=== PATIENT | female | born 1985 | race Caucasian/White ===

== ENCOUNTER 2019-12-08 10:28 | Outpatient (CLI) | payer OTHER, SELFPAY ==
[2019-12-08 11:01] LABS: Basophils Percent Auto 0.4 % (0.2-1.2); Eosinophils Absolute Auto 0.1 K/mm3 (0-0.3); Eosinophils Percent Auto 1.6 % (0-4.4); Hematocrit 37.1 % (37.0-47.0); Immature Granulocyte Absolute 0.02 K/mm3 (0.00-0.031); Immature Granulocyte Percent A 0.2 % (0-0.5); Lymphocytes Absolute Auto 2.37 K/mm3 (0.9-3.2); Lymphocytes Percent Auto 29.1 % (18.3-44.2); Mean Corpuscular HGB Conc 32.3 g/dl (32-36); Mean Corpuscular Hemoglobin 30.1 pg (26-34); Mean Platelet Volume 9.7 fl (7.4-10.4); Monocytes Absolute Auto 0.7 K/mm3 (0.1-0.6); Monocytes Percent Auto 8.1 % (2.6-8.5); Neutrophils Absolute Auto 4.9 K/mm3 (1.3-6.7); Neutrophils Percent Auto 60.6 % (45.5-73.1); Platelet Count Result 429 k/mm3 (150-375); Red Blood Count 3.99 M/mm3 (4.2-5.4); Red Cell Distribution Width 11.5 % (11.5-14.5); White Blood Count 8.1 K/mm3 (4.5-10.0)
[2019-12-08 11:09] LABS: Hemoglobin A1C 8.2 % (<5.7)
[2019-12-08 11:12] LABS: Alanine Aminotransferase 18 U/L (4-35); Albumin Level 3.7 g/dL (3.5-5.1); Alkaline Phosphatase 75 U/L (38-126); Anion Gap 3 mmol/L (8-16); Aspartate Amino Transferase 23 U/L (14-36); Bilirubin,Total 0.5 mg/dL (0.2-1.3); Blood Urea Nitrogen 9 mg/dL (7-17); Carbon Dioxide 32 mmol/L (22-30); Chloride 103 mmol/L (98-107); Cholesterol 163 mg/dL (0-200); Estimated Glomerular Filt Rate > 60; Glucose 98 mg/dL (65-105); HDL Direct 36 mg/dL; Potassium 3.8 mmol/L (3.4-5.0); Sodium 138 mmol/L (137-145); Triglycerides 83 mg/dL (<150)
[2019-12-08 11:23] LABS: LDL Cholesterol Direct 104 mg/dL
== END 2019-12-08 10:29 | disposition home or self-care (01) ==
LOC: ANHLAB 10:30
PROVIDERS: PCP Internal Medicine; Visit Provider Clinical Nurse Specialist
DX: E11.9 Type 2 diabetes mellitus without complications (principal); I10 Essential (primary) hypertension
CPT/HCPCS: 36415; 80053; 80061; 83036; 85025

== ENCOUNTER 2020-03-11 14:09 | Emergency (ER) | payer OTHER, SELFPAY ==
--- NOTE | ~2020-03-11 | CT_ITS ---
EXAMINATION: CT abdomen pelvis w con DATE: 03/11/2020 16:29 INDICATION: Lower abdominal pain TECHNIQUE: Computed tomography (CT) of the abdomen and pelvis was performed with 100 mL Omnipaque-350 intravenous contrast. Automated exposure control and iterative reconstruction technique were employe d. The dose-length product was 1392.70 mGy-cm. COMPARISON: None FINDINGS: No significant change in a likely benign 4 mm pleural-based nodule in the right middle lobe. Heart si ze is normal. No pericardial or pleural effusion. Focal hepatic steatosis along the ligamentum teres. Gallbladder is surgically absent. Spleen, pancreas, bilateral adrenal glands and kidneys are normal. Bowels including the appendix are normal. Bladder, retroflexed uterus and bilateral adnexa are unrem arkable. Small amount of likely physiologic free fluid in the cul-de-sac. Mild scarring in the region of the umbilicus likely related to prior surgery. No pathologically enlarged abdominal or pelvic lym phadenopathy. Mild thoracic and lumbar spondylosis. Chronic likely physiologic mild anterior wedging of a few lower thoracic vertebral bodies. IMPRESSION: 1. Small amount of likely physiologic free fluid in the cul-de-sac. No other acute intra-abdominal/pe lvic process. Reviewed, dictated and finalized at location A. DRIER OPERATOR IMPRESSION: 1. Small amount of likely physiologic free fluid in the cul-de-sac. No other ac ugashik intra-abdominal/pelvic process.
[2020-03-11 14:38] VITALS: BP 109/50; PULSE 106; RESP 18; TEMP 36.2
[2020-03-11 14:54] LABS: Basophils Absolute Auto 0.1 K/mm3 (0.0-0.1); Basophils Percent Auto 0.5 % (0.2-1.2); Eosinophils Absolute Auto 0.1 K/mm3 (0-0.3); Eosinophils Percent Auto 0.8 % (0-4.4); Hematocrit 38.8 % (37.0-47.0); Hemoglobin 12.7 g/dL (12.0-15.0); Immature Granulocyte Absolute 0.03 K/mm3 (0.00-0.031); Immature Granulocyte Percent A 0.3 % (0-0.5); Immature Platelet Fraction Pct 9.2 % (0.9-11.2); Lymphocytes Absolute Auto 1.43 K/mm3 (0.9-3.2); Lymphocytes Percent Auto 14.5 % (18.3-44.2); Mean Corpuscular HGB Conc 32.7 g/dl (32-36); Mean Corpuscular Volume 91.7 fl (80-100); Mean Platelet Volume 10.6 fl (7.4-10.4); Monocytes Absolute Auto 0.7 K/mm3 (0.1-0.6); Monocytes Percent Auto 6.8 % (2.6-8.5); Neutrophils Absolute Auto 7.6 K/mm3 (1.3-6.7); Neutrophils Percent Auto 77.1 % (45.5-73.1); Platelet Count Result 301 k/mm3 (150-375); Red Blood Count 4.23 M/mm3 (4.2-5.4); Red Cell Distribution Width 11.9 % (11.5-14.5); White Blood Count 9.9 K/mm3 (4.5-10.0)
--- NOTE | 2020-03-11 14:55 | PC.NURSE ---
Patient reports being seen at multiple hospitals in the last week for abd pain and told she has a cyst on her ovary. patient reports that she wants pain medications.
[2020-03-11 15:15] LABS: Add Urine Microscopic? YES; Appearance Urine Clear (Clear); Bilirubin Urine Negative (Negative); Blood Urine Negative (Negative); Color Urine Yellow (Yellow); Glucose Urine UA Negative (Negative); Ketones Urine Negative (Negative); Leukocyte Esterase Ur 1+ LEU/UL (Negative); Nitrate Urine Negative (Negative); Protein Urine Negative (Negative); RBC Urine 0-2 /hpf (0-2); Specific Grav Ur 1.015 (1.001-1.035); Squamous Epithelial Cell Urine Many /hpf (Few); Urobilinogen Urine Negative mg/dL (<2.0); WBC Urine 0-3 /hpf
[2020-03-11] MEDS: SODIUM CHLORIDE 0.9% IV 1,000 ML 999 ML IV CONT (15:48)
[2020-03-11 15:49] LABS: Alanine Aminotransferase 25 U/L (4-35); Albumin Level 4.1 g/dL (3.5-5.1); Alkaline Phosphatase 84 U/L (38-126); Anion Gap 4 mmol/L (8-16); Aspartate Amino Transferase 28 U/L (14-36); Bilirubin,Total 0.3 mg/dL (0.2-1.3); Blood Urea Nitrogen 6 mg/dL (7-17); Calcium 9.2 mg/dL (8.4-10.2); Carbon Dioxide 31 mmol/L (22-30); Chloride 101 mmol/L (98-107); Estimated CRCL calculation 121 ml/min; Estimated Glomerular Filt Rate > 60; Glucose 175 mg/dL (65-105); Lipase 38 U/L (23-300); Potassium 4.2 mmol/L (3.4-5.0); Sodium 136 mmol/L (137-145)
--- NOTE | 2020-03-11 17:04 | ED.ABDPAIN ---
HPI - Abdominal Pain General Chief Complaint: Abdominal Pain Stated Complaint: abd pain, new dx ovairan cyst Time Seen by Provider: 03/11/20 15:27 Source: patient Mode of arrival: ambulatory Limitations: no limitations History of Present Illness HPI narrative: 34 years old white female presents with generalized abdominal pain for the last few months. Intermittent. Patient denies any aggravating or relieving factors. Patient denies any fever, chills, diarrhea, constipation, vaginal bleeding or discharge or urinary symptoms. Patient was seen at [facility] last week with negative work-up, referred to [facility] for further evaluation, patient was evaluated by virtual [facility] recently. Came to the emergency room because of no improvement of the generalized abdominal pain. History of type 1 diabetes, hypertension, hyperlipidemia, patient on insulin pump. Patient scheduled to see her [facility] March 24 and a psychiatrist April 10 Patient reports a lot of stress and depression in her life over the last few months Related Data Allergies Allergy/AdvReac Type Severity Reaction Status Date / Time Penicillins Allergy Unknown swelling Verified 11/24/19 09:35 Review of Systems Review of Systems: Narrative: CONSTITUTIONAL: Denies fever, chills, or sweats. EYES: Denies visual changes, redness, or discharge. ENT: Denies rhinorrhea, congestion, sore throat, or otalgia. CARDIOVASCULAR: Denies chest pain, palpitations, or edema. RESPIRATORY: Denies cough or dyspnea. GASTROINTESTINAL: Denies abdominal pain, nausea, vomiting, or diarrhea. GENITOURINARY: Denies dysuria or hematuria. SKIN: Denies rash or itching. MUSCULOSKELETAL: Denies back pain, joint pain, or myalgia. NEUROLOGIC: Denies headache, numbness, or weakness. PSYCHIATRIC: Denies anxiety or depression. [facility] Past Medical History Medical History Back pain Cellulitis Cholecystectomy planned 2019 Cholecystitis Depression Hyperlipidemia Hypertension Obesity Thrombocytosis Type 2 diabetes mellitus Surgical History Surgical History H/O tubal ligation BL History of back surgery X5 Family History Family History Father Diabetes mellitus Social History Social History Smoking status: Former smoker Smoking end date: 02/18/05 Alcohol intake: never Gender identity (if verbalized by the patient): Female Exam Narrative: Exam Narrative: General appearance: Well-developed, well-nourished Skin: Normal color Head: Normocephalic, nontraumatic Eyes: Clear conjunctiva ENT: Oropharynx normal, ears normal, nose normal Neck: Supple, nontender Chest and respiratory: Airway patent, no respiratory distress, no accessory muscle use Heart: Regular rate/rhythm Abdomen: Soft, diffuse abdominal tenderness Vascular: Normal peripheral pulses, normal capillary refill. Musculoskeletal: Normal range of motion, nontender back Neurologic: Alert and oriented ?3, FINANCIAL AUDITOR is normal as tested, no gross motor deficit Course Course Emergency Course: Stable Vital Signs Vital signs: Vital Signs Temperature 36.2 C L 03/11/20 14:38 Pulse Rate 106 H 03/11/20 14:38 Respiratory Rate 18 03/11/20 14:38 Blood Pressure 109/50 L 03/11/20 14:38 Temperature 36.2 C L 03/11/20 14:38 Pulse Rate 106 H 03/11/20 14:38 Respiratory Rate 18 03/11/20 14:38 Blood Pressure 109/50 L 03/11/20 14:38 MDM - Abdominal Pain MDM Narrative Medical decision making narrative: Generalized abdominal pain. Labs, CT a
[2020-03-11 17:35] VITALS: BP 115/89; PULSE 90; RESP 18; O2SAT 100
== END 2020-03-11 17:37 | disposition home or self-care (01) ==
PROVIDERS: Emergency Provider Emergency Medicine; PCP Internal Medicine
DX: R10.84 Generalized abdominal pain (principal); F32.89 Other specified depressive episodes; I10 Essential (primary) hypertension; E11.9 Type 2 diabetes mellitus without complications; E78.5 Hyperlipidemia, unspecified; Z79.4 Long term (current) use of insulin; Z96.41 Presence of insulin pump (external) (internal); E66.9 Obesity, unspecified; Z68.41 Body mass index [BMI] 40.0-44.9, adult; Z87.891 Personal history of nicotine dependence
CPT/HCPCS: 36415; 74177; 80053; 81001; 81025; 83690; 85025; 85055; 96360; 99284; J7030; Q9967

== ENCOUNTER 2020-03-21 12:06 | Outpatient (CLI) | payer OTHER, SELFPAY ==
[2020-03-21 13:04] LABS: Cholesterol 176 mg/dL (0-200); HDL Direct 37 mg/dL; Triglycerides 101 mg/dL (<150)
[2020-03-21 13:15] LABS: LDL Cholesterol Direct 122 mg/dL
== END 2020-03-21 12:07 | disposition home or self-care (01) ==
LOC: ANHLAB 12:07
PROVIDERS: PCP Internal Medicine; Visit Provider Nurse Practitioner
DX: E11.9 Type 2 diabetes mellitus without complications (principal); Z79.4 Long term (current) use of insulin
CPT/HCPCS: 36415; 80061

== ENCOUNTER 2020-03-24 15:56 | Outpatient (CLI) | payer OTHER, SELFPAY | END 2020-03-24 15:57 | disposition home or self-care (01) | LOC: ANHLAB 15:58 | PROVIDERS: PCP Internal Medicine; Visit Provider Nurse Practitioner | DX: E11.9 Type 2 diabetes mellitus without complications (principal); Z79.4 Long term (current) use of insulin | CPT/HCPCS: 36415; 83036 ==

== ENCOUNTER → 2020-05-27 00:48 | Outpatient (CLI) | payer OTHER, SELFPAY ==
[2020-05-27 19:49] LABS: SARS-CoV-2 RNA PCR Negative
== END ==
PROVIDERS: PCP Internal Medicine; Visit Provider Internal Medicine Gastroenterology
DX: Z01.812 Encounter for preprocedural laboratory examination (principal); Z20.822 Contact with and (suspected) exposure to COVID-19
CPT/HCPCS: C9803; U0003; U0005

== ENCOUNTER 2020-05-30 01:14 | Day surgery (SDC) | payer OTHER, SELFPAY ==
[2020-05-20 15:10] VITALS: BMI 44.1
[2020-05-30 09:20] VITALS: BP 136/98; PULSE 98; RESP 18; TEMP 36.3; O2SAT 100
[2020-05-30] MEDS: LACTATED RINGERS 1,000 ML 150 ML IV CONT (09:44)
[2020-05-30 09:49] LABS: Glucose Point of Care 96 (65-105)
--- NOTE | 2020-05-30 10:12 | WPDANESEPPF ---
Anes - Initial Pre Proc Eval Procedure: Operation Date: 05/30/20 10:30 Proposed Procedures p Colonoscopy - Ozzie Howe MD Date/Time: 05/30/20 10:12 Surgeon: Ozzie Howe MD Pre Op Diagnosis: abdom. pain, diarrhea Patient Data Age: 35 Gender: F Height: 5 ft 5 in Weight: 115.7 kg Last Vital Signs Temp 97.3 F L 05/30/20 09:20 Pulse 98 05/30/20 09:20 Resp 18 05/30/20 09:20 BP 136/98 H 05/30/20 09:20 Pulse Ox 100 05/30/20 09:20 Allergies Allergy/AdvReac Type Severity Reaction Status Date / Time Penicillins Allergy Unknown swelling Verified 05/30/20 09:16 Home Medications Medication Instructions Recorded Confirmed Type insulin syringe-needle U-100 0.5 #100 each 08/27/19 05/04/20 Rx mL 29 gauge x 1/2 insulin lispro 100 unit/mL 90 unit SUB-Q TID #10 ml MDD 90 11/18/19 05/30/20 Rx subcutaneous solution lisinopril 5 mg tablet 5 mg PO DAILY #90 tablet 12/10/19 05/30/20 Rx simvastatin 20 mg tablet 20 mg PO DAILY #90 tablet 03/24/20 05/30/20 Rx blood sugar diagnostic #100 ea 03/28/20 05/04/20 Rx blood-glucose meter #1 ea 03/28/20 05/04/20 Rx hydroxyzine HCl 10 mg tablet 10 mg PO TID PRN #30 tablet 04/13/20 05/30/20 Rx divalproex 250 mg PO DAILY 05/30/20 05/30/20 History quetiapine 50 mg PO DAILY 05/30/20 05/30/20 History Laboratory Tests 05/30/20 09:30 POC Capillary Glucose 96 mg/dl mg/dl (65-105) Patient hx anesthesia problems: none Family hx anesthesia problems: none PMFSH Past Medical History Medical History (Updated 05/04/20 @ 15:50 by STEPHAN Ashraf) Back pain Cellulitis Cholecystectomy planned 2018 Cholecystitis Depression Hyperlipidemia Hypertension Obesity Obesity Thrombocytosis Type 2 diabetes mellitus Surgical History Surgical History H/O tubal ligation BL History of back surgery X5 Family History Family History Father Diabetes mellitus Social History Social History Smoking status: Never smoker Smoking end date: 02/18/05 Alcohol intake: never Substance use: current Substance use type: marijuana Other substance usage details: USES FOR BACK PAIN Living arrangements: with family Gender identity (if verbalized by the patient): Female Spiritual care concerns: No Anes - Eval Final PreProcedure Day of Procedure 05/30/20 10:12 Patient weight: morbidly obese Heart: regular rate and rhythm Lungs: clear to auscultation Airway: Mallampati scale class III Neurological: alert and oriented Last oral intake: >/= 8 hours ASA classification: IV Emergent: no Anesthetic plan: proceed Anesthesia type and monitoring: general GIVS and standard monitoring Informed Consent: The patient's anesthetic plan and its attendant risks and benefits were discussed with the patient/family/POA. Questions were solicited and answers provided to the satisfaction of the patient/family/POA.
--- NOTE | 2020-05-30 10:37 | PM.HPGS ---
History of Present Illness History of Present Illness Consent: Risks, benefits, and alternatives have been discussed and questions answered. Patient agrees to proceed with procedure. Chief complaint: abdom. pain, diarrhea Narrative: Elise Luevano is a 35 year old female referred for evaluation of abdominal pain with diarrhea which began about 1 year ago. She has episodes of diarrhea with severe pain though not always at the same time. Multiple CT scans have been done that were negative Review of Systems Review of Systems: All systems reviewed & are unremarkable except as noted in HPI and below PMFSH Past Medical History Medical History Back pain Cellulitis Cholecystectomy planned 2019 Cholecystitis Depression Hyperlipidemia Hypertension Obesity Obesity Thrombocytosis Type 2 diabetes mellitus Surgical History Surgical History H/O tubal ligation BL History of back surgery X5 Family History Family History Father Diabetes mellitus Social History Social History Smoking status: Never smoker Smoking end date: 02/18/05 Alcohol intake: never Substance use: current Substance use type: marijuana Other substance usage details: USES FOR BACK PAIN Living arrangements: with family Gender identity (if verbalized by the patient): Female Spiritual care concerns: No Meds Home Medications and Allergies Home Medications Medication Instructions Recorded Confirmed Type insulin syringe-needle U-100 0.5 #100 each 08/27/19 05/04/20 Rx mL 29 gauge x 1/2 insulin lispro 100 unit/mL 90 unit SUB-Q TID #10 ml MDD 90 11/18/19 05/30/20 Rx subcutaneous solution lisinopril 5 mg tablet 5 mg PO DAILY #90 tablet 12/10/19 05/30/20 Rx simvastatin 20 mg tablet 20 mg PO DAILY #90 tablet 03/24/20 05/30/20 Rx blood sugar diagnostic #100 ea 03/28/20 05/04/20 Rx blood-glucose meter #1 ea 03/28/20 05/04/20 Rx hydroxyzine HCl 10 mg tablet 10 mg PO TID PRN #30 tablet 04/13/20 05/30/20 Rx divalproex 250 mg PO DAILY 05/30/20 05/30/20 History quetiapine 50 mg PO DAILY 05/30/20 05/30/20 History Allergies Allergy/AdvReac Type Severity Reaction Status Date / Time Penicillins Allergy Unknown swelling Verified 05/30/20 09:16 Vital Signs Vital Signs - 24 hr 05/30/20 09:20 Temperature 36.3 C L Pulse Rate 98 Respiratory Rate 18 Blood Pressure 136/98 H Pulse Oximetry 100 Exam Const: General: alert Orientation/consciousness: patient oriented x3 Resp: Auscultation: clear to auscultation bilaterally Cardio: Rhythm: regular rhythm GI: GI Palp: Yes Soft to palpation and No Tenderness to palpation present (GI) Neuro: General: patient oriented x3 Assessment and Plan Assessment and plan (1) Chronic diarrhea: Code(s): K52.9 - Noninfective gastroenteritis and colitis, unspecified Status: Acute Assessment and Plan: Colonoscopy with possible biopsy or polypectomy or cautery or injection of substances.
[2020-05-30 11:05] VITALS: BP 105/49; PULSE 88; RESP 18; O2SAT 97
[2020-05-30 11:15] VITALS: BP 115/67; PULSE 81; RESP 18; O2SAT 100
[2020-05-30 11:25] VITALS: BP 119/74; PULSE 76; RESP 18; O2SAT 100
[2020-05-30 11:31] LABS: Glucose Point of Care 115 (65-105)
== END 2020-05-30 11:39 | disposition home or self-care (01) ==
PROVIDERS: PCP Internal Medicine; Visit Provider Internal Medicine Gastroenterology
PROC: 0DJD8ZZ Inspection of Lower Intestinal Tract, Via Natural or Artificial Opening Endoscopic (ICD-10-PCS; CPT 45378; principal; 2020-05-30 10:30)
DX: K59.1 Functional diarrhea (principal); R10.9 Unspecified abdominal pain; F32.9 Major depressive disorder, single episode, unspecified; E78.5 Hyperlipidemia, unspecified; D47.3 Essential (hemorrhagic) thrombocythemia; E11.9 Type 2 diabetes mellitus without complications; Z79.4 Long term (current) use of insulin; F12.90 Cannabis use, unspecified, uncomplicated; I10 Essential (primary) hypertension
CPT/HCPCS: 45380; 82948; 88305; J2704; J7120

== ENCOUNTER 2020-06-22 11:41 | Outpatient (CLI) | payer OTHER, SELFPAY ==
[2020-06-22 12:12] LABS: Creatinine Urine 128.3 mg/dL
[2020-06-22 12:14] LABS: Basophils Percent Auto 0.4 % (0.2-1.2); Eosinophils Absolute Auto 0.1 K/mm3 (0-0.3); Eosinophils Percent Auto 1.4 % (0-4.4); Hematocrit 38.6 % (37.0-47.0); Hemoglobin 12.5 g/dL (12.0-15.0); Immature Granulocyte Absolute 0.02 K/mm3 (0.00-0.031); Immature Granulocyte Percent A 0.3 % (0-0.5); Lymphocytes Absolute Auto 1.87 K/mm3 (0.9-3.2); Lymphocytes Percent Auto 23.7 % (18.3-44.2); Mean Corpuscular HGB Conc 32.4 g/dl (32-36); Mean Corpuscular Hemoglobin 29.5 pg (26-34); Monocytes Absolute Auto 0.7 K/mm3 (0.1-0.6); Monocytes Percent Auto 9.3 % (2.6-8.5); Neutrophils Absolute Auto 5.1 K/mm3 (1.3-6.7); Neutrophils Percent Auto 64.9 % (45.5-73.1); Platelet Count Result 354 k/mm3 (150-375); Red Blood Count 4.24 M/mm3 (4.2-5.4); Red Cell Distribution Width 11.3 % (11.5-14.5); White Blood Count 7.9 K/mm3 (4.5-10.0)
[2020-06-22 12:28] LABS: MALB Creatinine Ratio < 4.7 mg/g (0-30); Microalbumin Urine Random < 6.0 mg/L (0-16.7)
[2020-06-22 12:31] LABS: Alanine Aminotransferase 14 U/L (4-35); Alkaline Phosphatase 70 U/L (38-126); Anion Gap 5 mmol/L (8-16); Aspartate Amino Transferase 23 U/L (14-36); Bilirubin,Total 0.2 mg/dL (0.2-1.3); Blood Urea Nitrogen 11 mg/dL (7-17); Calcium 9.5 mg/dL (8.4-10.2); Carbon Dioxide 30 mmol/L (22-30); Chloride 101 mmol/L (98-107); Estimated Glomerular Filt Rate > 60; Glucose 184 mg/dL (65-105); Potassium 4.2 mmol/L (3.4-5.0); Sodium 136 mmol/L (137-145)
== END 2020-06-22 11:42 | disposition home or self-care (01) ==
LOC: ANHLAB 11:43
PROVIDERS: PCP Internal Medicine; Visit Provider Nurse Practitioner
DX: E11.9 Type 2 diabetes mellitus without complications (principal); Z51.81 Encounter for therapeutic drug level monitoring; Z79.4 Long term (current) use of insulin
CPT/HCPCS: 36415; 80053; 82043; 83036; 85025

== ENCOUNTER 2020-09-30 10:46 | Outpatient (CLI) | payer OTHER, SELFPAY ==
[2020-09-30 11:54] LABS: Basophils Percent Auto 0.4 % (0.2-1.2); Eosinophils Absolute Auto 0.1 K/mm3 (0-0.3); Eosinophils Percent Auto 0.6 % (0-4.4); Hematocrit 35.8 % (37.0-47.0); Hemoglobin 11.8 g/dL (12.0-15.0); Immature Granulocyte Absolute 0.03 K/mm3 (0.00-0.031); Immature Granulocyte Percent A 0.4 % (0-0.5); Lymphocytes Absolute Auto 1.84 K/mm3 (0.9-3.2); Lymphocytes Percent Auto 22.9 % (18.3-44.2); Mean Corpuscular Hemoglobin 27.8 pg (26-34); Mean Corpuscular Volume 84.4 fl (80-100); Mean Platelet Volume 9.7 fl (7.4-10.4); Monocytes Absolute Auto 0.5 K/mm3 (0.1-0.6); Monocytes Percent Auto 6.5 % (2.6-8.5); Neutrophils Absolute Auto 5.6 K/mm3 (1.3-6.7); Neutrophils Percent Auto 69.2 % (45.5-73.1); Platelet Count Result 379 k/mm3 (150-375); Red Blood Count 4.24 M/mm3 (4.2-5.4); Red Cell Distribution Width 11.9 % (11.5-14.5)
[2020-09-30 12:06] LABS: Alanine Aminotransferase 23 U/L (4-35); Albumin Level 4.1 g/dL (3.5-5.1); Alkaline Phosphatase 89 U/L (38-126); Anion Gap 8 mmol/L (8-16); Aspartate Amino Transferase 27 U/L (14-36); Bilirubin,Total 0.4 mg/dL (0.2-1.3); Blood Urea Nitrogen 13 mg/dL (7-17); Calcium 9.3 mg/dL (8.4-10.2); Carbon Dioxide 24 mmol/L (22-30); Chloride 106 mmol/L (98-107); Cholesterol 159 mg/dL (0-200); Estimated Glomerular Filt Rate > 60; Glucose 216 mg/dL (65-110); HDL Direct 47 mg/dL; Potassium 4.4 mmol/L (3.4-5.0); Sodium 138 mmol/L (137-145); Triglycerides 62 mg/dL (<150)
[2020-09-30 12:09] LABS: Alanine Aminotransferase 23 U/L (4-35); Albumin Level 4.1 g/dL (3.5-5.1); Alkaline Phosphatase 88 U/L (38-126); Anion Gap 8 mmol/L (8-16); Aspartate Amino Transferase 30 U/L (14-36); Bilirubin,Total 0.2 mg/dL (0.2-1.3); Blood Urea Nitrogen 12 mg/dL (7-17); Calcium 9.2 mg/dL (8.4-10.2); Carbon Dioxide 25 mmol/L (22-30); Chloride 101 mmol/L (98-107); Estimated Glomerular Filt Rate > 60; Glucose 214 mg/dL (65-110); Potassium 4.4 mmol/L (3.4-5.0); Sodium 134 mmol/L (137-145)
[2020-09-30 12:18] LABS: LDL Cholesterol Direct 76 mg/dL
[2020-09-30 12:24] LABS: Hemoglobin A1C 9.1 % (<5.7)
== END 2020-09-30 10:47 | disposition home or self-care (01) ==
LOC: ANHLAB 10:48
PROVIDERS: PCP Internal Medicine; Visit Provider Nurse Practitioner
DX: E11.9 Type 2 diabetes mellitus without complications (principal); Z79.4 Long term (current) use of insulin
CPT/HCPCS: 36415; 80053; 80061; 83036; 85025

== ENCOUNTER 2020-12-30 12:56 | Outpatient (CLI) | payer OTHER, SELFPAY ==
[2020-12-30 13:40] LABS: Basophils Percent Auto 0.4 % (0.2-1.2); Eosinophils Absolute Auto 0.1 K/mm3 (0-0.3); Hematocrit 36.7 % (37.0-47.0); Hemoglobin 11.9 g/dL (12.0-15.0); Immature Granulocyte Absolute 0.02 K/mm3 (0.00-0.031); Immature Granulocyte Percent A 0.2 % (0-0.5); Lymphocytes Absolute Auto 2.21 K/mm3 (0.9-3.2); Lymphocytes Percent Auto 24.3 % (18.3-44.2); Mean Corpuscular HGB Conc 32.4 g/dl (32-36); Mean Corpuscular Hemoglobin 28.6 pg (26-34); Mean Corpuscular Volume 88.2 fl (80-100); Mean Platelet Volume 9.8 fl (7.4-10.4); Monocytes Absolute Auto 0.5 K/mm3 (0.1-0.6); Monocytes Percent Auto 5.6 % (2.6-8.5); Neutrophils Absolute Auto 6.2 K/mm3 (1.3-6.7); Neutrophils Percent Auto 68.5 % (45.5-73.1); Platelet Count Result 420 k/mm3 (150-375); Red Blood Count 4.16 M/mm3 (4.2-5.4); White Blood Count 9.1 K/mm3 (4.5-10.0)
[2020-12-30 13:42] LABS: Hemoglobin A1C 9.2 % (<5.7)
[2020-12-30 13:51] LABS: Anion Gap 7 mmol/L (8-16); Blood Urea Nitrogen 10 mg/dL (7-17); Calcium 9.1 mg/dL (8.4-10.2); Carbon Dioxide 29 mmol/L (22-30); Chloride 101 mmol/L (98-107); Cholesterol 135 mg/dL (0-200); Estimated Glomerular Filt Rate > 60; Glucose 231 mg/dL (65-110); HDL Direct 44 mg/dL; Potassium 4.2 mmol/L (3.4-5.0); Sodium 137 mmol/L (137-145); Triglycerides 76 mg/dL (<150)
[2020-12-30 14:01] LABS: LDL Cholesterol Direct 68 mg/dL
[2020-12-30 17:26] LABS: Iron 67 ug/dL (37-170); Percent Iron Saturation 22 % (20-50)
== END 2020-12-30 12:57 | disposition home or self-care (01) ==
LOC: ANHLAB 12:58
PROVIDERS: PCP Internal Medicine; Visit Provider Nurse Practitioner
DX: E11.9 Type 2 diabetes mellitus without complications (principal); Z79.4 Long term (current) use of insulin; D64.9 Anemia, unspecified
CPT/HCPCS: 36415; 80048; 80061; 82728; 83036; 83540; 83550; 85025

== ENCOUNTER 2021-04-03 08:29 | Outpatient (CLI) | payer OTHER, SELFPAY ==
[2021-04-03 09:08] LABS: Hemoglobin A1C 8.9 % (<5.7)
== END 2021-04-03 08:30 | disposition home or self-care (01) ==
PROVIDERS: PCP Internal Medicine; Visit Provider Nurse Practitioner
DX: E11.9 Type 2 diabetes mellitus without complications (principal); Z79.4 Long term (current) use of insulin
CPT/HCPCS: 36415; 83036

== ENCOUNTER 2021-05-03 13:04 | Outpatient (CLI) | payer OTHER, SELFPAY ==
--- NOTE | ~2021-05-03 | US_ITS ---
EXAMINATION: US soft tissue UE RT DATE: 05/03/2021 13:29 INDICATION: Localized swelling, mass and lump at the right forearm. TECHNIQUE: Multiple grayscale and Doppler ultrasound images of the two painful palpable abnormalities at the right forearm were obtained. COMPARISON: None FINDINGS: Both the palpable abnormalities correspond to ovoid soft tissue subcutaneous masses which are isointe nse and with similar echogenicity and internal septated architecture as the surrounding fat most cons istent with lipomas. These measure 2.8 x 1.3 x 2.0 cm and 2.0 x 1.8 x 1.2 cm. IMPRESSION: 1. A couple subcutaneous mass at the region of concern with appearance most consistent with and stati stically most likely to represent lipomas. Reviewed, dictated and finalized at location A. IMPRESSION: 1. A couple subcutaneous mass at the region of concern with appearance most con sistent with and statistically most likely to represent lipomas.
== END 2021-05-03 13:05 | disposition home or self-care (01) ==
LOC: ANHIMG 13:05
PROVIDERS: PCP Internal Medicine; Visit Provider Nurse Practitioner
DX: R22.9 Localized swelling, mass and lump, unspecified (principal)
CPT/HCPCS: 76882

== ENCOUNTER 2021-05-16 13:34 | Outpatient (CLI) | payer OTHER, SELFPAY ==
--- NOTE | 2021-05-16 13:30 | ECG_ITS ---
Measurements Intervals [place] Rate: 75 P: 14 TX: 144 QRS: 1 QRSD: 84 T: 11 QT: 393 QTc: 441 Interpretive Statements BASELINE ARTIFACT LEAD 1 AND LEAD TO REDUCES ECG QUALITY SINUS RHYTHM POOR R-WAVE PROGRESSION OTHERWISE GROSSLY NORMAL ECG NO PREVIOUS ECG AVAILABLE FOR COMPARISON Electronically Signed On 05-16-2021 17:38:28 CDT by Cleve Stanley M.D.
[2021-05-16 14:18] LABS: Alanine Aminotransferase 29 U/L (4-35); Albumin Level 3.8 g/dL (3.5-5.1); Alkaline Phosphatase 94 U/L (38-126); Anion Gap 5 mmol/L (8-16); Aspartate Amino Transferase 31 U/L (14-36); Bilirubin,Total 0.3 mg/dL (0.2-1.3); Blood Urea Nitrogen 13 mg/dL (7-17); Calcium 8.7 mg/dL (8.4-10.2); Carbon Dioxide 31 mmol/L (22-30); Chloride 99 mmol/L (98-107); Estimated Glomerular Filt Rate > 60; Glucose 117 mg/dL (65-110); Sodium 135 mmol/L (137-145)
== END 2021-05-16 13:35 | disposition home or self-care (01) ==
LOC: ANHSURGERY 13:38
PROVIDERS: PCP Internal Medicine; Visit Provider Surgery
DX: R22.31 Localized swelling, mass and lump, right upper limb (principal); E11.9 Type 2 diabetes mellitus without complications; E78.5 Hyperlipidemia, unspecified; I10 Essential (primary) hypertension
CPT/HCPCS: 36415; 80053; 93005

== ENCOUNTER 2021-05-22 00:57 | Day surgery (SDC) | payer OTHER, SELFPAY ==
[2021-05-12 11:10] VITALS: BMI 47.0
--- NOTE | 2021-05-12 11:23 | PC.NURSE ---
Addendum entered by Carla More RN 05/12/21 11:29: PT INSTRUCTED TO CONTINUE INSULIN PUMP Original Note: Report to the Outpatient Waiting Room, entrance under the green pavilion located off [facility], at time 12:00 on date 05/22/21. OR Time: 2:00. - You and your visitor will be asked a series of questions to screen for COVID 19 for your protection. - A mask is required within the hospital. One visitor will be allowed to accompany the patient into the hospital. Patients visitor will be instructed to remain with patient at all times or leave the building. We will allow the visitor to come back to the postoperative area when patient is ready. Preoperative COVID Testing Requirements: No COVID Test needed if: (proof is required; if not received patient will have Rapid Test prior to entry) - Patient has received COVID Vaccine at least 14 days prior to procedure date or - Patient has positive COVID test result within last 90 days of surgery date. COVID Test needed if above criteria is not met Patients may have clear liquids (water, carbonated beverages, clear teas, apple juice) until 3 hours prior to surgery (11:00) with a maximum of 20 ounces. - No food from midnight until time of surgery Take the following medications with a SIP of water the morning of surgery: HYDROXYZINE, LAMOTRIGINE, PROPRANOLOL, QUETIAPINE Medications to discontinue per physician: N/A Date to take last dose: N/A Please no make-up, nail mohawk, hairspray, perfume, deodorant, or body powder the day of surgery. No jewelry (including any body piercings) or valuables the day of surgery, leave them at home. Please take a shower or bath the night before, or the morning of, surgery with an antibacterial soap. Wear comfortable, loose fitting clothing. - Jewelry must be removed prior to entering the operating room. Rings and piercings that are not removed may be cut off. - The hospital will not accept responsibility for valuables. - Please leave all valuables, including medications, at home the day of surgery. If you are going home after surgery, a licensed motor bus driver must drive you home. - NO public transportation without another adult. - We recommend that an adult stay with you for 24 hours following discharge. - We also recommend that you do not drive, make important decision, drink alcoholic beverages, or take any drugs that were not prescribed by your health care provider for at least 24 hours after your discharge time. Follow any additional instructions given to you from your surgeon. Telephone instructions given to FRANCIA PAGE and asked if any additional questions and then verbalized understanding. Patient advised to call surgeon office or pre surgery nurse liaison [phone] if any additional questions.
[2021-05-22] VITALS (7 sets, daily range): BP systolic 121–139; BP diastolic 75–92; PULSE 76–86; RESP 14–20; TEMP 36.1–36.3; O2SAT 94–100; BMI 45.5
--- NOTE | 2021-05-22 12:05 | WPDANESEPPF ---
Anes - Initial Pre Proc Eval Procedure: Operation Date: 05/22/21 14:00 Proposed Procedures p Excision Right Forearm Subcutaneous Masses Times Two - Phuc Guillaume MD Date/Time: 05/22/21 12:05 Surgeon: Phuc Guillaume MD Pre Op Diagnosis: Rt Forearm Subcutaneous Mass X 2 Patient Data Age: 36 Gender: F Height: 1.65 m Weight: 128.37 kg Allergies Allergy/AdvReac Type Severity Reaction Status Date / Time Penicillins Allergy Unknown swelling Verified 05/12/21 11:08 Home Medications Medication Instructions Recorded Confirmed Type insulin syringe-needle U-100 0.5 #100 each 08/27/19 05/11/21 Rx mL 29 gauge x 1/2 blood-glucose meter #1 ea 06/30/20 05/11/21 Rx propranolol 20 mg tablet 20 mg PO Q12H 10/25/20 05/12/21 History blood sugar diagnostic #100 ea 01/04/21 05/11/21 Rx lisinopril 5 mg tablet 5 mg PO DAILY #90 tablet 01/18/21 05/12/21 Rx hydroxyzine HCl 50 mg tablet 50 mg PO BID 01/25/21 05/12/21 History insulin lispro 100 unit/mL 90 unit SUB-Q TID #10 ml MDD 90 03/07/21 05/12/21 Rx subcutaneous solution simvastatin 40 mg tablet 40 mg PO DAILY #90 tablet 04/10/21 05/12/21 Rx lamotrigine 100 mg tablet 100 mg PO DAILY 05/11/21 05/12/21 History quetiapine 400 mg tablet 400 mg PO DAILY 05/11/21 05/12/21 History Patient hx anesthesia problems: none Family hx anesthesia problems: none Results Review: All pre-operative results and documents have been reviewed as part of the pre-operative evaluation. [facility] Past Medical History Medical History Back pain Cellulitis Cholecystectomy planned 2018 Cholecystitis Depression Hyperlipidemia Hypertension Obesity Obesity Thrombocytosis Type 2 diabetes mellitus Surgical History Surgical History H/O tubal ligation BL History of back surgery X5 S/P laparoscopic surgery 2020 Family History Family History Father Diabetes mellitus Other Cerebrovascular accident Hypertension Kidney disease Skin cancer Social History Social History Social History: caffeine- occasionally Smoking packs per day: 0.75 Smoking cigarettes per day: 15.0 Years smoked: 4 Smoking pack-years: 3.00 Smoking status: Former smoker Tobacco type: cigarettes Smoking end date: 02/18/06 Alcohol intake: never Substance use: current Substance use type: marijuana Other substance usage details: USES FOR BACK PAIN Living arrangements: with family Additional occupation/education comments: Disabled Gender identity (if verbalized by the patient): Female Spiritual care concerns: No Anes - Eval Final PreProcedure Day of Procedure 05/22/21 12:05 Patient weight: morbidly obese Heart: regular rate and rhythm Lungs: clear to auscultation and normal air movement Airway: Mallampati scale class II Neurological: alert and oriented Last oral intake: >/= 8 hours ASA classification: III Emergent: no Anesthetic plan: proceed Anesthesia type and monitoring: general LMA and standard monitoring Results Review: All pre-operative results and documents have been reviewed as part of the pre-operative evaluation. Informed Consent: The patient's anesthetic plan and its attendant risks and benefits were discussed with the patient/family/POA. Questions were solicited and answers provided to the satisfaction of the patient/family/POA.
[2021-05-22 13:14] LABS: Glucose Point of Care 116 mg/dl (65-105)
[2021-05-22] MEDS: LACTATED RINGERS 1,000 ML 30 ML IV CONT (13:20)
[2021-05-22] MEDS: ACETAMINOPHEN 500 MG TABLET 1000 MG PO (13:21)
--- NOTE | 2021-05-22 14:36 | WPDHPUPDATE1 ---
History and Physical Update Update Date/Time: 05/22/21 14:36 History and Physical has been reviewed, including an updated exam of the patient. There are NO changes in the patient's condition. Risks, benefits, and alternatives have been discussed and questions answered. Patient agrees to proceed with procedure.
[2021-05-22] MEDS: ceFAZolin 3 GM/D5W 100 ML 100 ML IVPB (15:07)
--- NOTE | 2021-05-22 15:52 | P.OP_ITS ---
Procedure Note - Detailed Date of Procedure 05/22/21 Pre-op Diagnosis Rt. Forearm Subcutaneous Mass X 2 Post-op Diagnosis Same (Suspected lipomas) Procedure Performed Excision of 2 subcutaneous masses volar surface of right forearm Surgeon Phuc Guillaume MD Material Handler Floorperson MARIAN [place], OR 1st assist Anesthesia Local (2% Xylocaine with epinephrine) Indications Enlarging subcutaneous mass is causing some discomfort right volar forearm. Findings Subcutaneous masses 1st one is 3 x 1.8 cm and more medial. 2nd one is 2.4 x 1.2 cm and more lateral. Each had a very thin capsule. Description of Procedure The patient was placed in the supine position. Naseem anesthesia established G IV S with an LMA in place. After a surgical time out confirming patient and procedure the patient's entire right arm from the elbow out was prepped and draped in the usual sterile fashion and positioned supinated out to her side on an arm board. Local anesthetic was administered in the skin and subcutaneously directly over a line drawn vertically over each of the 2 palpable subcutaneous masses on the volar surface of the patient's right forearm. A direct incision was made over the 1st subcutaneous lesion which was slightly larger and more medial on the proximal part of the right volar forearm. Incision was made directly over it coming down through a thin layer of subcutaneous fat and I identified a slightly different colored fat and a capsule of what appeared to be a lipoma. I then widened out my incision and I dissected down to the deep subcutaneous tissues and then completely excised the lesion/mass including any capsule that I could see. After removal of this it measured 3 x 1.8 cm. Bleeding was controlled with electrocautery. The wound was closed in two layers. An un-dyed 3-0 Vicryl deep dermal interrupted, buried sutures and then a 4-0 undyed Monocryl running subcuticular closure was completed. The more lateral lesion was smaller and was excised in a similar fashion as d escribed above. It was also closed with 3 interrupted,buried sutures of 3-0 Vicryl followed by a running subcuticular closure of 4-0 on dyed Monocryl on the skin. Surgical glue applied as dressing. The glue was allowed to dry and then each incision site was covered with an appropriete sized piece of Tefla, followed by application of a snug but not tight 3 inch Vivek wrap. Patient tolerated this well. Implants none Estimated Blood Loss 5 Drains No Packing No Pathology Yes (To subcutaneous masses that are suspected lipomas. 1. Labeled volar medial subcutaneous mass 2. Labeled volar lateral subcutaneous mass) Complications No immediate complications Condition Stable Disposition Same day
[2021-05-22 16:03] LABS: Glucose Point of Care 122 mg/dl (65-105)
== END 2021-05-22 17:13 | disposition home or self-care (01) ==
PROVIDERS: PCP Internal Medicine; Visit Provider Surgery
PROC: (CPT 25071; principal; 2021-05-22 14:00)
DX: D17.21 Benign lipomatous neoplasm of skin and subcutaneous tissue of right arm (principal); Z79.4 Long term (current) use of insulin; I10 Essential (primary) hypertension; E78.5 Hyperlipidemia, unspecified; E11.9 Type 2 diabetes mellitus without complications; F32.9 Major depressive disorder, single episode, unspecified; E66.01 Morbid (severe) obesity due to excess calories; Z68.42 Body mass index [BMI] 45.0-49.9, adult; Z87.891 Personal history of nicotine dependence; F12.90 Cannabis use, unspecified, uncomplicated
CPT/HCPCS: 25071 ×2; 82948; 88304; A9270; J0690; J1100; J1165; J1885; J2250; J2405; J2704; J3010; J7120

== ENCOUNTER 2021-10-19 09:13 | Outpatient (CLI) | payer OTHER, SELFPAY ==
[2021-10-19 09:50] LABS: Anion Gap 2 mmol/L (8-16); Blood Urea Nitrogen 10 mg/dL (7-17); Calcium 8.4 mg/dL (8.4-10.2); Carbon Dioxide 29 mmol/L (22-30); Chloride 99 mmol/L (98-107); Estimated Glomerular Filt Rate > 60; Glucose 209 mg/dL (65-110); Potassium 3.8 mmol/L (3.4-5.0); Sodium 130 mmol/L (137-145)
[2021-10-19 10:19] LABS: Hemoglobin A1C 9.8 % (<5.7)
== END 2021-10-19 09:14 | disposition home or self-care (01) ==
LOC: ANHLAB 09:14
PROVIDERS: PCP Internal Medicine; Visit Provider Nurse Practitioner
DX: E11.9 Type 2 diabetes mellitus without complications (principal)
CPT/HCPCS: 36415; 80048; 83036

== ENCOUNTER 2021-10-20 13:54 | Outpatient (CLI) | payer OTHER, SELFPAY ==
[2021-10-20 14:17] LABS: Anion Gap 11 mmol/L (8-16); Blood Urea Nitrogen 8 mg/dL (7-17); Carbon Dioxide 30 mmol/L (22-30); Chloride 98 mmol/L (98-107); Estimated Glomerular Filt Rate > 60; Glucose 157 mg/dL (65-110); Potassium 4.2 mmol/L (3.4-5.0); Sodium 139 mmol/L (137-145)
== END 2021-10-20 13:55 | disposition home or self-care (01) ==
LOC: ANHLAB 13:56
PROVIDERS: PCP Internal Medicine; Visit Provider Nurse Practitioner
DX: E87.1 Hypo-osmolality and hyponatremia (principal)
CPT/HCPCS: 36415; 80048

== ENCOUNTER 2021-11-21 02:16 | Day surgery (SDC) | payer OTHER, SELFPAY ==
[2021-11-15 09:45] VITALS: BMI 45.7
--- NOTE | 2021-11-15 09:51 | PC.NURSE ---
Report to the Outpatient Waiting Room, entrance under the green pavilion located off [facility], at time 1300 on date 11/21/21. OR Time: 1500. Time changes happen often and if your time is changed the preop area will call you the afternoon before. - You and your visitor will be asked to self-screen and do not enter if you have any COVID symptoms. - Only one visitor and NO children visitors are allowed at this time. - The patient visitor is requested to leave or wait in car when not with patient due to restrictions. - A mask is required within the hospital. Patients may have clear liquids (water, carbonated beverages, clear teas, apple juice) until 3 hours prior to surgery with a maximum of 20 ounces. - No food from midnight until time of surgery Take the following medications with a SIP of water the morning of surgery: HYDROXYZINE, LAMOTRIGINE, PROPRANOLOL, INSULIN PUMP - CONTINUE BASAL RATE, ONLY DO 1/2 DOSE OF AM INSULIN Medications to discontinue per physician: N/A Date to take last dose: N/A Please no make-up, nail syriac, hairspray, perfume, deodorant, or body powder the day of surgery. No jewelry (including any body piercings) or valuables the day of surgery, leave them at home. Please take a shower or bath the night before, or the morning of, surgery with an antibacterial soap. Wear comfortable, loose fitting clothing. - Jewelry must be removed prior to entering the operating room. Rings and piercings that are not removed may be cut off. - The hospital will not accept responsibility for valuables. - Please leave all valuables, including medications, at home the day of surgery. If you are going home after surgery, a licensed auto transport driver must drive you home. - NO public transportation without another adult. - We recommend that an adult stay with you for 24 hours following discharge. - We also recommend that you do not drive, make important decision, drink alcoholic beverages, or take any drugs that were not prescribed by your health care provider for at least 24 hours after your discharge time. Follow any additional instructions given to you from your surgeon. If you or anyone in your household have experienced Covid symptoms in the past week, please notify your surgeon or the nurse liaison at the phone number below for possible testing. Telephone instructions given to PT - FRANCIA PAGE and asked if any additional questions and then verbalized understanding. Patient advised to call surgeon office or pre surgery nurse liaison [phone] if any additional questions.
--- NOTE | 2021-11-20 12:37 | WPDANESEPPF ---
Anes - Initial Pre Proc Eval Procedure: Operation Date: 11/21/21 15:00 Proposed Procedures p Excision Subcutaneous Mass Left Medial Thigh - Phuc Guillaume MD Date/Time: 11/20/21 12:37 Surgeon: Phuc Guillaume MD Pre Op Diagnosis: left medial thigh lipoma 2X2.5CM Patient Data Age: 36 Gender: F Height: 1.65 m Weight: 124.74 kg Allergies Allergy/AdvReac Type Severity Reaction Status Date / Time Penicillins AdvReac Unknown swelling Verified 11/21/21 13:25 Home Medications Medication Instructions Recorded Confirmed Type insulin syringe-needle U-100 0.5 #100 ea 08/27/19 11/08/21 Rx mL 29 gauge x 1/2 (BD Insulin Syringe) blood-glucose meter (OneTouch #1 ea 06/30/20 11/08/21 Rx Verio Meter) propranolol 20 mg tablet 20 mg PO Q12H 10/25/20 11/21/21 History blood sugar diagnostic (OneTouch #100 ea 01/04/21 11/08/21 Rx Ultra Test strips) lisinopril 5 mg tablet 5 mg PO DAILY #90 tabs 01/18/21 11/21/21 Rx hydroxyzine HCl 50 mg tablet 50 mg PO BID 01/25/21 11/21/21 History lamotrigine 100 mg tablet 100 mg PO DAILY 05/11/21 11/21/21 History insulin lispro 100 unit/mL See Rx Instructions .Route 10/03/21 11/21/21 Rx subcutaneous solution .COMPLEX #10 mL simvastatin 40 mg tablet See Rx Instructions .Route 10/24/21 11/21/21 Rx .COMPLEX #90 tabs Patient hx anesthesia problems: none Family hx anesthesia problems: none Results Review: All pre-operative results and documents have been reviewed as part of the pre-operative evaluation. [facility] Past Medical History Medical History (Updated 11/20/21 @ 12:39 by Gaudencio Cohen MD) Anxiety Back pain Cellulitis Cholecystectomy planned 2018 Cholecystitis Depression Hyperlipidemia Hypertension Insulin pump in place Morbid obesity with BMI of 45.0-49.9, adult Obesity Obesity Thrombocytosis Type 2 diabetes mellitus Surgical History Surgical History H/O excision of mass exc rt forearm subcutaneous mass x 2 05/22/21 H/O tubal ligation BL History of back surgery X5 S/P laparoscopic surgery 2020 Family History Family History Father Diabetes mellitus Other Cerebrovascular accident Hypertension Kidney disease Skin cancer Social History Social History Social History: caffeine- occasionally Smoking packs per day: 0.5 Smoking cigarettes per day: 10.0 Years smoked: 6 Smoking pack-years: 3.00 Smoking status: Former smoker Tobacco type: cigarettes Smoking end date: 02/18/06 Alcohol intake: never Substance use: current Substance use type: marijuana Other substance usage details: USES FOR BACK PAIN Living arrangements: with family Additional occupation/education comments: Disabled Gender identity (if verbalized by the patient): Female Spiritual care concerns: No Anes - Eval Final PreProcedure Day of Procedure 11/20/21 12:37 Patient weight: morbidly obese Heart: regular rate and rhythm Lungs: clear to auscultation and normal air movement Airway: Mallampati scale class II Neurological: alert and oriented Last oral intake: >/= 8 hours ASA classification: III Emergent: no Anesthetic plan: proceed Anesthesia type and monitoring: general LMA and standard monitoring Results Review: All pre-operative results and documents have been reviewed as part of the pre-operative evaluation. Informed Consent: The patient's anesthetic plan and its attendant risks and benefits were discussed with the patient/family/POA. Questions were solicited and answers provided to the satisfaction of the patient/family/POA.
[2021-11-21 13:11] VITALS: BP 121/66; PULSE 78; RESP 20; TEMP 36.2; O2SAT 100
--- NOTE | 2021-11-21 13:47 | WPDHPUPDATE1 ---
History and Physical Update Update Date/Time: 11/21/21 13:47 History and Physical has been reviewed, including an updated exam of the patient. There are NO changes in the patient's condition. Risks, benefits, and alternatives have been discussed and questions answered. Patient agrees to proceed with procedure.
[2021-11-21] MEDS: LACTATED RINGERS 1,000 ML 30 ML IV CONT (13:55)
[2021-11-21 14:01] LABS: Glucose Point of Care 130 mg/dl (65-105)
[2021-11-21] MEDS: BUPIVACAINE/EPINEPHRINE 0.25% 50 ML VIAL 7 ML INFILTRATE (14:56)
--- NOTE | 2021-11-21 15:15 | W.PM.PROC2 ---
Procedure Note - Detailed Date of Procedure 11/21/21 Pre-op Diagnosis left medial thigh lipoma 2X2.5CM Post-op Diagnosis Same Procedure Performed Excision of skin lesion Surgeon Phuc Guillaume MD Software Design Manager Audrey Nation APN Anesthesia Local Indications Enlarging somewhat painful subcutaneous mass left medial thigh. Findings Small nearly round encapsulated area of fat. After removal measured 2.1 x 1.3 x 1. 5 cm. Description of Procedure After appropriate sedation with G IV S by Naseem anesthesia we positioned the patient for the operation. The patient was placed in the supine position with her left leg been slightly frog-legged and rotated out. This was padded carefully to expose the area of the skin of the lower left medial thigh slightly above the knee. Then after a surgical time out confirming patient and procedure, the patient was prepped and draped in the usual sterile fashion. Local anesthetic was administered subcutaneously and in the skin directly overlying the palpable subcutaneous mass. There are no skin lesions identified directly over the area so a direct longitudinal lid incision was planned. The lesion measured 2 x 2.5 cm when compressing the skin around it and measured before excision. A direct incision was made over the palpable lesion while keeping anterior to posterior pressure on the skin on either side of the incision to compress what appeared to be a lipoma underneath toward the incision. As we initially made the incision we could see some of the lipoma pop up into the incision few more strokes with the 15 blade on the medial or posterior side of the incision freed it from the surrounding subcu tissue and the encapsulated area of fat seemed to be able to be squeezed up into the wound. We then down to the deep subcutaneous tissues and then completely excised the lesion with the use of Bovie cautery. Bleeding was controlled on the wound edges with electrocautery. The wound was closed in two layers. An un-dyed 2-0 Vicryl deep dermal and then a 3-0 undyed Monocryl running subcuticular closure was completed. Surgical glue applied as dressing. After the surgical glue dried we applied a 2 x 2 and a medium Tegaderm over it. Then to protect the incision we also applied a 6 in Vivek wrap starting slightly below the knee and wrapping it around the knee and lower left thigh covering the site of the incision to protect it. Patient tolerated this well. Implants none Estimated Blood Loss 3 Drains No Packing No Pathology Yes (Encapsulated fat, suspect lipoma) Complications No immediate complications Condition Stable Disposition Same day [facility] Billing Surgery - Charge Forward: Surgery Billing (Excision of lipoma left lower thigh.)
[2021-11-21 15:20] VITALS: BP 124/76; PULSE 80; RESP 14; O2SAT 96
[2021-11-21 15:44] LABS: Glucose Point of Care 123 mg/dl (65-105)
[2021-11-21 15:50] VITALS: BP 122/64; PULSE 75; RESP 16
[2021-11-21 16:20] VITALS: BP 127/74; PULSE 70; RESP 16
== END 2021-11-21 16:45 | disposition home or self-care (01) ==
PROVIDERS: PCP Internal Medicine; Visit Provider Surgery
PROC: (CPT 27337; principal; 2021-11-21 15:00)
DX: D17.24 Benign lipomatous neoplasm of skin and subcutaneous tissue of left leg (principal); I10 Essential (primary) hypertension; E78.5 Hyperlipidemia, unspecified; E11.9 Type 2 diabetes mellitus without complications; F41.9 Anxiety disorder, unspecified; F32.A Depression, unspecified; Z96.41 Presence of insulin pump (external) (internal); Z79.4 Long term (current) use of insulin; E66.01 Morbid (severe) obesity due to excess calories; Z68.42 Body mass index [BMI] 45.0-49.9, adult; Z87.891 Personal history of nicotine dependence; F12.90 Cannabis use, unspecified, uncomplicated
CPT/HCPCS: 27337; 82948; 88304; J1885; J2250; J2704; J3010; J7120

== ENCOUNTER 2022-01-31 13:39 | Outpatient (CLI) | payer OTHER, SELFPAY ==
[2022-01-31 14:09] LABS: Basophils Percent Auto 0.4 % (0.2-1.2); Eosinophils Absolute Auto 0.1 K/mm3 (0-0.3); Eosinophils Percent Auto 1.2 % (0-4.4); Hematocrit 37.5 % (37.0-47.0); Hemoglobin 11.9 g/dL (12.0-15.0); Immature Granulocyte Absolute 0.03 K/mm3 (0.00-0.031); Immature Granulocyte Percent A 0.3 % (0-0.5); Lymphocytes Absolute Auto 2.24 K/mm3 (0.9-3.2); Lymphocytes Percent Auto 24.9 % (18.3-44.2); Mean Corpuscular HGB Conc 31.7 g/dl (32-36); Mean Corpuscular Hemoglobin 28.1 pg (26-34); Mean Corpuscular Volume 88.7 fl (80-100); Mean Platelet Volume 9.5 fl (7.4-10.4); Monocytes Absolute Auto 0.6 K/mm3 (0.1-0.6); Monocytes Percent Auto 7.1 % (2.6-8.5); Neutrophils Absolute Auto 5.9 K/mm3 (1.3-6.7); Neutrophils Percent Auto 66.1 % (45.5-73.1); Platelet Count Result 450 k/mm3 (150-375); Red Blood Count 4.23 M/mm3 (4.2-5.4); Red Cell Distribution Width 14.1 % (11.5-14.5)
[2022-01-31 14:32] LABS: Alanine Aminotransferase 17 U/L (6-35); Albumin Level 3.7 g/dL (3.5-5.1); Alkaline Phosphatase 92 U/L (38-126); Anion Gap 2 mmol/L (8-16); Aspartate Amino Transferase 19 U/L (14-36); Bilirubin,Total 0.3 mg/dL (0.2-1.3); Blood Urea Nitrogen 8 mg/dL (7-17); Calcium 8.6 mg/dL (8.4-10.2); Carbon Dioxide 31 mmol/L (22-30); Chloride 99 mmol/L (98-107); Estimated Glomerular Filt Rate > 60; Glucose 242 mg/dL (65-110); Potassium 4.2 mmol/L (3.4-5.0); Sodium 132 mmol/L (137-145)
[2022-01-31 14:38] LABS: Creatinine Urine 123.6 mg/dL
[2022-01-31 14:39] LABS: Hemoglobin A1C 10.9 % (<5.7)
[2022-01-31 15:04] LABS: MALB Creatinine Ratio < 4.9 mg/g (0-30); Microalbumin Urine Random < 6.0 mg/L (0-16.7)
== END 2022-01-31 13:40 | disposition home or self-care (01) ==
LOC: ANHLAB 13:40
PROVIDERS: PCP Internal Medicine; Visit Provider Nurse Practitioner
DX: E11.9 Type 2 diabetes mellitus without complications (principal); Z79.4 Long term (current) use of insulin
CPT/HCPCS: 36415; 80053; 82043; 83036; 85025

== ENCOUNTER 2022-02-01 15:10 | Outpatient (CLI) | payer OTHER, SELFPAY ==
[2022-02-01 20:48] LABS: Immature Reticulocyte Fraction 10.6 % (3.0-15.9); Reticulocyte Hemoglobin Conten 32.2 pg (28.2-35.7); Reticulocyte Percent 1.83 % (0.7-4.3); Reticulocytes Absolute 0.08 B/L (32.2-175.7)
[2022-02-01 20:55] LABS: Iron 50 ug/dL (37-170)
[2022-02-01 21:10] LABS: Percent Iron Saturation 16 % (20-50)
[2022-02-01 21:28] LABS: Anion Gap 4 mmol/L (8-16); Blood Urea Nitrogen 9 mg/dL (7-17); Calcium 8.8 mg/dL (8.4-10.2); Carbon Dioxide 29 mmol/L (22-30); Chloride 102 mmol/L (98-107); Estimated Glomerular Filt Rate > 60; Glucose 216 mg/dL (65-110); Potassium 4.2 mmol/L (3.4-5.0); Sodium 135 mmol/L (137-145)
== END 2022-02-01 15:11 | disposition home or self-care (01) ==
LOC: ANHGOSHLAB 15:11
PROVIDERS: PCP Internal Medicine; Visit Provider Nurse Practitioner
DX: D64.9 Anemia, unspecified (principal)
CPT/HCPCS: 36415; 80048; 82607; 82728; 82746; 83540; 83550; 85046

== ENCOUNTER 2022-03-14 12:18 | Outpatient (CLI) | payer OTHER, SELFPAY ==
[2022-03-14 12:53] LABS: Alanine Aminotransferase 25 U/L (6-35); Albumin Level 3.8 g/dL (3.5-5.1); Alkaline Phosphatase 92 U/L (38-126); Anion Gap 7 mmol/L (8-16); Aspartate Amino Transferase 25 U/L (14-36); Bilirubin,Total 0.4 mg/dL (0.2-1.3); Blood Urea Nitrogen 9 mg/dL (7-17); Calcium 8.4 mg/dL (8.4-10.2); Carbon Dioxide 26 mmol/L (22-30); Chloride 104 mmol/L (98-107); Cholesterol 138 mg/dL (0-200); Estimated Glomerular Filt Rate > 60; Glucose 201 mg/dL (65-110); HDL Direct 38 mg/dL; Sodium 137 mmol/L (137-145); Triglycerides 104 mg/dL (<150)
[2022-03-14 13:04] LABS: LDL Cholesterol Direct 70 mg/dL
[2022-03-14 13:23] LABS: Thyroid Stimulating Hormone 0.988 uIU/mL (0.465-4.680)
[2022-03-14 13:26] LABS: Creatinine Urine 207.4 mg/dL
[2022-03-14 13:31] LABS: MALB Creatinine Ratio 4.9 mg/g (0-30); Microalbumin Urine Random 10.1 mg/L (0-16.7)
[2022-03-14 13:33] LABS: Vitamin D 25 Hydroxy < 12.8 ng/mL
[2022-03-18 06:14] LABS: C-Peptide 0.83 ng/mL (0.80-3.85)
[2022-03-20 18:03] LABS: Zinc Transporter 8 Antibody <10 U/mL (<15)
[2022-03-27 22:22] LABS: Islet Cell Antibody Screen NEGATIVE (NEGATIVE)
== END 2022-03-14 12:19 | disposition home or self-care (01) ==
LOC: ANHLAB 12:19
PROVIDERS: PCP Internal Medicine; Visit Provider Internal Medicine
DX: E11.9 Type 2 diabetes mellitus without complications (principal); E66.01 Morbid (severe) obesity due to excess calories; Z68.42 Body mass index [BMI] 45.0-49.9, adult
CPT/HCPCS: 36415; 80053; 80061; 82043; 82306; 84443; 84681; 86341

== ENCOUNTER 2022-05-23 13:45 | Outpatient (CLI) | payer OTHER, SELFPAY ==
[2022-05-23 18:43] LABS: Basophils Percent Auto 0.4 % (0.2-1.2); Eosinophils Absolute Auto 0.1 K/mm3 (0-0.3); Eosinophils Percent Auto 0.9 % (0-4.4); Hematocrit 40.3 % (37.0-47.0); Immature Granulocyte Absolute 0.02 K/mm3 (0.00-0.031); Immature Granulocyte Percent A 0.2 % (0-0.5); Immature Reticulocyte Fraction 9.8 % (3.0-15.9); Lymphocytes Absolute Auto 2.14 K/mm3 (0.9-3.2); Lymphocytes Percent Auto 21.1 % (18.3-44.2); Mean Corpuscular HGB Conc 32.3 g/dl (32-36); Mean Corpuscular Hemoglobin 30.2 pg (26-34); Mean Corpuscular Volume 93.5 fl (80-100); Monocytes Absolute Auto 0.7 K/mm3 (0.1-0.6); Monocytes Percent Auto 7.2 % (2.6-8.5); Neutrophils Absolute Auto 7.1 K/mm3 (1.3-6.7); Neutrophils Percent Auto 70.2 % (45.5-73.1); Platelet Count Result 490 k/mm3 (150-375); Red Blood Count 4.31 M/mm3 (4.2-5.4); Red Cell Distribution Width 12.8 % (11.5-14.5); Reticulocyte Hemoglobin Conten 32.1 pg (28.2-35.7); Reticulocyte Percent 1.45 % (0.7-4.3); Reticulocytes Absolute 0.06 B/L (32.2-175.7); White Blood Count 10.1 K/mm3 (4.5-10.0)
[2022-05-23 18:56] LABS: Iron 92 ug/dL (37-170)
[2022-05-23 19:06] LABS: Percent Iron Saturation 27 % (20-50)
== END 2022-05-23 13:46 | disposition home or self-care (01) ==
LOC: ANHGOSHLAB 13:46
PROVIDERS: PCP Internal Medicine; Visit Provider Nurse Practitioner
DX: D64.9 Anemia, unspecified (principal)
CPT/HCPCS: 36415; 82728; 83540; 83550; 85025; 85046

== ENCOUNTER 2022-05-30 15:37 | Outpatient (CLI) | payer OTHER, SELFPAY ==
[2022-05-30 15:50] LABS: Basophils Percent Auto 0.3 % (0.2-1.2); Eosinophils Absolute Auto 0.1 K/mm3 (0-0.3); Eosinophils Percent Auto 1.2 % (0-4.4); Hematocrit 36.2 % (37.0-47.0); Hemoglobin 11.6 g/dL (12.0-15.0); Immature Granulocyte Absolute 0.01 K/mm3 (0.00-0.031); Immature Granulocyte Percent A 0.1 % (0-0.5); Lymphocytes Absolute Auto 2.32 K/mm3 (0.9-3.2); Lymphocytes Percent Auto 30.2 % (18.3-44.2); Mean Corpuscular Hemoglobin 29.7 pg (26-34); Mean Corpuscular Volume 92.8 fl (80-100); Mean Platelet Volume 9.7 fl (7.4-10.4); Monocytes Absolute Auto 0.6 K/mm3 (0.1-0.6); Monocytes Percent Auto 7.3 % (2.6-8.5); Neutrophils Absolute Auto 4.7 K/mm3 (1.3-6.7); Neutrophils Percent Auto 60.9 % (45.5-73.1); Platelet Count Result 454 k/mm3 (150-375); Red Cell Distribution Width 12.3 % (11.5-14.5); White Blood Count 7.7 K/mm3 (4.5-10.0)
[2022-05-30 16:27] LABS: Iron 56 ug/dL (37-170)
[2022-05-30 16:29] LABS: Anion Gap 4 mmol/L (8-16); Blood Urea Nitrogen 9 mg/dL (7-17); Calcium 8.6 mg/dL (8.4-10.2); Carbon Dioxide 30 mmol/L (22-30); Chloride 103 mmol/L (98-107); Estimated Glomerular Filt Rate > 60; Glucose 168 mg/dL (65-110); Potassium 4.1 mmol/L (3.4-5.0); Sodium 137 mmol/L (137-145)
[2022-05-30 16:39] LABS: Percent Iron Saturation 18 % (20-50)
[2022-06-02 14:45] LABS: Methylmalonic Acid 82 nmol/L (87-318)
== END 2022-05-30 15:38 | disposition home or self-care (01) ==
LOC: ANHLAB 15:39
PROVIDERS: PCP Internal Medicine; Visit Provider Internal Medicine Hematology & Oncology
DX: D64.9 Anemia, unspecified (principal)
CPT/HCPCS: 36415; 80048; 82607; 82728; 82746; 83540; 83550; 83921; 85025

== ENCOUNTER 2022-08-24 20:28 | Emergency (ER) | payer OTHER, SELFPAY ==
--- NOTE | ~2022-08-24 | XR_ITS ---
EXAM: XR foot LT 2V DATE: 08/24/2022 20:54 HISTORY: L great toe ulcer . COMPARISON: None available. FINDINGS: Normal mineralization. No fracture or dislocation. No lytic or blastic lesion. Joint space s are maintained. No erosion or periosteal change. Soft tissue defect over the proximal and inferior aspect of the great toe. Soft tissue swelling of the great toe and forefoot. No radiopaque foreign mulu dy. No subcutaneous gas. IMPRESSION: No radiographic evidence of osteomyelitis. Great toe and forefoot soft tissue swelling, m ay reflect cellulitis in the appropriate clinical context. Reviewed, dictated and finalized at location K. IMPRESSION: No radiographic evidence of osteomyelitis. Great toe and forefoot s oft tissue swelling, may reflect cellulitis in the appropriate clinical context .
[2022-08-24 20:28] VITALS: BP 152/80; PULSE 95; RESP 16; TEMP 36.3; O2SAT 99
--- NOTE | 2022-08-24 20:41 | ED.GENADULT ---
HPI - General Adult General Chief complaint: Extremity Problem,Nontraumatic Stated complaint: hole in left big toe Time Seen by Provider: 08/24/22 20:34 Source: patient Mode of arrival: ambulatory Limitations: no limitations History of Present Illness HPI narrative: This is a 37-year-old female with PMH of insulin-dependent diabetes who presents to the ED with chief complaint of left great toe lesion onset x1 week. Patient states that she had a callus to the toe that she picked off. She reports that she had a small black thing in the toe that she pulled out. She states ever since then the toe has been somewhat painful and there has been a hole in it. States it is somewhat painful when she walks on it 10 times. Reports a throbbing pain. She states that sometimes there is drainage that she notices on her sock. Denies any further complaints. Denies fevers, chills, nausea, vomiting. Additionally patient notes that her last A1c was around 7. She states they have been getting better and better since she has been on her insulin pump. Related Data Home Medications Medication Instructions Recorded Confirmed propranolol 20 mg tablet 20 mg PO Q12H 10/25/20 05/23/22 lamotrigine 100 mg tablet 100 mg PO DAILY 05/11/21 05/23/22 fluoxetine 40 mg capsule 40 mg PO DAILY 05/23/22 05/23/22 olanzapine 15 mg tablet 15 mg PO QHS 05/23/22 05/23/22 Allergies Allergy/AdvReac Type Severity Reaction Status Date / Time Penicillins AdvReac Unknown swelling Verified 08/24/22 20:28 [facility] Past Medical History Medical History Abdominal mass Adenoiditis Anemia Anxiety Back pain Body mass index (BMI) greater than 40 (12/18/17) Cellulitis of left thigh Cholecystitis Chronic diarrhea Depression Essential hypertension History of deviated nasal septum Hyperlipidemia Hypertension Hypertrophy of both inferior nasal turbinates Hyponatremia Insulin pump in place Lipoma Medial left thigh slightly above knee. director long term care (current) use of insulin Morbid obesity with BMI of 45.0-49.9, adult Other chronic pain Schizophrenia Subcutaneous mass of right upper extremity Thrombocytosis Type 2 diabetes mellitus Surgical History Surgical History H/O excision of mass exc rt forearm subcutaneous mass x 2 05/22/21 H/O excision of mass Excision of subQ mass left thigh mass on 11/21/21. H/O tubal ligation BL History of back surgery X5 S/P laparoscopic surgery 2020 Family History Family History Father Diabetes mellitus Other Cerebrovascular accident Hypertension Kidney disease Skin cancer Social History Social History Social History: caffeine- occasionally Smoking packs per day: 0.5 Smoking cigarettes per day: 10.0 Years smoked: 6 Smoking pack-years: 3.00 Smoking status: Former smoker Tobacco type: cigarettes Smoking end date: 02/18/06 Alcohol intake: never Substance use: current Substance use type: marijuana Other substance usage details: USES FOR BACK PAIN Last use: [id number] Lack of Transportation: No Lack of Food: Never True Current Housing: I Do Not Have Housing Concerned About Future Housing: No Difficulty Paying Gas/Electric Bills: No Difficulty Paying for Meds: No Currently Unemployed: No Education: Don't Know Difficulty w/ Childcare or Family Care: No Living arrangements: with family Occupation/Education: other Additional occupation/education comments: Disabled Gender identity (if verbalized by the patient): Female Spiritual care concerns: No Exam Narrative: GENERAL: Well-appearing, well-nourished, and in no acute distress. HEAD: Normocephalic, atraumatic. EYES: PERRLA and EOMI. ENT: Nares clear, no rhinorrhea or ep
[2022-08-24 21:27] LABS: Basophils Percent Auto 0.2 % (0.2-1.2); Eosinophils Absolute Auto 0.1 K/mm3 (0-0.3); Hematocrit 35.5 % (37.0-47.0); Hemoglobin 11.6 g/dL (12.0-15.0); Immature Granulocyte Absolute 0.02 K/mm3 (0.00-0.031); Immature Granulocyte Percent A 0.2 % (0-0.5); Lymphocytes Absolute Auto 2.31 K/mm3 (0.9-3.2); Lymphocytes Percent Auto 26.1 % (18.3-44.2); Mean Corpuscular HGB Conc 32.7 g/dl (32-36); Mean Corpuscular Hemoglobin 30.2 pg (26-34); Mean Corpuscular Volume 92.4 fl (80-100); Mean Platelet Volume 9.6 fl (7.4-10.4); Monocytes Absolute Auto 0.6 K/mm3 (0.1-0.6); Monocytes Percent Auto 7.1 % (2.6-8.5); Neutrophils Absolute Auto 5.8 K/mm3 (1.3-6.7); Neutrophils Percent Auto 65.4 % (45.5-73.1); Platelet Count Result 501 k/mm3 (150-375); Red Blood Count 3.84 M/mm3 (4.2-5.4); White Blood Count 8.9 K/mm3 (4.5-10.0)
[2022-08-24] MEDS: HYDROcodone/acetaminophen (*CRX) 5-325 MG TABLET 1 TAB PO (21:32)
[2022-08-24 21:42] LABS: Alanine Aminotransferase 34 U/L (6-35); Albumin Level 3.9 g/dL (3.5-5.1); Alkaline Phosphatase 85 U/L (38-126); Anion Gap 3 mmol/L (8-16); Aspartate Amino Transferase 32 U/L (14-36); Bilirubin,Total 0.3 mg/dL (0.2-1.3); Blood Urea Nitrogen 11 mg/dL (7-17); CRP 2.9 mg/dL (<1.0); Calcium 8.8 mg/dL (8.4-10.2); Carbon Dioxide 32 mmol/L (22-30); Chloride 103 mmol/L (98-107); Estimated CRCL calculation 97 ml/min; Estimated Glomerular Filt Rate > 60; Glucose 152 mg/dL (65-110); Potassium 3.7 mmol/L (3.4-5.0); Sodium 138 mmol/L (137-145)
[2022-08-24 21:46] LABS: Erythrocyte Sedimentation Rate 72 mm/hr (0-20)
[2022-08-24] MEDS: CLINDAMYCIN HCL 150 MG CAP 300 MG PO (21:59)
== END 2022-08-24 22:19 | disposition home or self-care (01) ==
PROVIDERS: Emergency Provider Physician Assistant; PCP Internal Medicine
DX: E11.621 Type 2 diabetes mellitus with foot ulcer (principal); L97.522 Non-pressure chronic ulcer of other part of left foot with fat layer exposed; I10 Essential (primary) hypertension; E78.5 Hyperlipidemia, unspecified; E66.01 Morbid (severe) obesity due to excess calories; Z68.41 Body mass index [BMI] 40.0-44.9, adult; F20.9 Schizophrenia, unspecified; F41.9 Anxiety disorder, unspecified; F32.A Depression, unspecified; Z96.41 Presence of insulin pump (external) (internal); Z79.4 Long term (current) use of insulin; Z87.891 Personal history of nicotine dependence
CPT/HCPCS: 36415; 73620; 80053; 85025; 85652; 86140; 99283; A9270

== ENCOUNTER 2022-09-03 23:36 | Observation (INO) | payer OTHER, SELFPAY ==
--- NOTE | ~2022-09-03 | CT_ITS ---
CT scan of the left foot CLINICAL HISTORY: Osteomyelitis of great toe TECHNIQUE: Following intravenous administration of 100 mL of Omnipaque 350 contrast media, axial imag ing of the left foot was performed. Sagittal and coronal reformatted images were constructed. Dose re duction technique was used on this scan by utilizing automated exposure control and iterative reconst ruction technique. The dose-length product (DLP) was 449.82 mGy-cm. Findings: No fracture or dislocation seen. No bony destructive change or periosteal reaction. No dist inct CT evidence for osteomyelitis. Joint spaces are preserved. There is soft tissue ulcer/wound with surrounding soft tissue infiltrative changes at the distal aspe ct of the great toe medially. No abscess/fluid collection clearly evident. No other distinct soft tis lilly abnormality seen. IMPRESSION: No CT evidence for osteomyelitis. MR imaging can be considered for more sensitive evaluation, as thom cated. Soft tissue ulcer/wound at the medial, distal aspect of the great toe. No abscess evident. Reviewed, dictated and finalized at location . IMPRESSION: No CT evidence for osteomyelitis. MR imaging can be considered for more sensiti ve evaluation, as indicated. Soft tissue ulcer/wound at the medial, distal aspect of the great toe. No absce ss evident.
[2022-09-03 23:39] VITALS: BP 149/89; PULSE 95; RESP 16; TEMP 36.5; O2SAT 99
[2022-09-04] VITALS (19 sets, daily range): BP systolic 121–164; BP diastolic 66–100; PULSE 76–86; RESP 16–22; TEMP 36.2–36.7; O2SAT 96–100; BMI 44.4
--- NOTE | 2022-09-04 01:02 | ED.GENADULT ---
HPI - General Adult General Chief complaint: Extremity Problem,Nontraumatic <Tyrel Grajeda PA-C - Last Filed: 09/04/22 03:19> Stated complaint: left great toe wound <Tyrel Grajeda PA-C - Last Filed: 09/04/22 03:19> Time Seen by Provider: 09/04/22 00:49 <Tyrel Grajeda PA-C - Last Filed: 09/04/22 03:19> Source: patient <CHESTER Floyd Last Filed: 09/04/22 03:19> Mode of arrival: ambulatory <CHESTER Floyd Last Filed: 09/04/22 03:19> Limitations: no limitations <Tyrel Grajeda PA-C - Last Filed: 09/04/22 03:19> History of Present Illness HPI narrative: This is a 37-year-old female with PMH of insulin-dependent diabetes who presents to the ED for chief complaint of left great toe pain and swelling ongoing for the past 3 weeks. She was seen here by myself initially for concern of this diabetic foot wound. It did not appear grossly infected at the time but we agreed to do some antibiotics and follow-up with the foot doctor. She states she has been cleaning the wound more regularly and changing dressings regularly. She states the wound itself is looking better, however she is starting to have more pain and swelling of the left great toe. She reports pain is worsening with ambulation over the past few days. Denies fevers, chills, systemic symptoms. <Tyrel Grajeda PA-C - Last Filed: 09/04/22 03:19> Related Data Home medications: Home Medications Medication Instructions Recorded Confirmed propranolol 20 mg tablet 20 mg PO Q12H 10/25/20 05/23/22 lamotrigine 100 mg tablet 100 mg PO DAILY 05/11/21 05/23/22 fluoxetine 40 mg capsule 40 mg PO DAILY 05/23/22 05/23/22 olanzapine 15 mg tablet 15 mg PO QHS 05/23/22 05/23/22 <CHESTER Floyd Last Filed: 09/04/22 03:19> Allergies/adverse reactions: Allergies Allergy/AdvReac Type Severity Reaction Status Date / Time Penicillins AdvReac Unknown swelling Verified 09/03/22 23:37 <Tyrel Grajeda PA-C - Last Filed: 09/04/22 03:19> [facility] Past Medical History Medical History: Medical History Abdominal mass Adenoiditis Anemia Anxiety Back pain Body mass index (BMI) greater than 40 (12/18/17) Cellulitis of left thigh Cholecystitis Chronic diarrhea Depression Essential hypertension History of deviated nasal septum Hyperlipidemia Hypertension Hypertrophy of both inferior nasal turbinates Hyponatremia Insulin pump in place Lipoma Medial left thigh slightly above knee. termite helper (current) use of insulin Morbid obesity with BMI of 45.0-49.9, adult Other chronic pain Schizophrenia Subcutaneous mass of right upper extremity Thrombocytosis Type 2 diabetes mellitus <Tyrel Grajeda PA-C - Last Filed: 09/04/22 03:19> Surgical History Surgical History: Surgical History H/O excision of mass exc rt forearm subcutaneous mass x 2 05/22/21 H/O excision of mass Excision of subQ mass left thigh mass on 11/21/21. H/O tubal ligation BL History of back surgery X5 S/P laparoscopic surgery 2019 <Tyrel Grajeda PA-C - Last Filed: 09/04/22 03:19> Family History Family History: Family History Father Diabetes mellitus Other Cerebrovascular accident Hypertension Kidney disease Skin cancer <Tyrel Grajeda PA-C - Last Filed: 09/04/22 03:19> Social History Social History: Social History Social History: caffeine- occasionally Smoking packs per day: 0.5 Smoking cigarettes per day: 10.0 Years smoked: 6 Smoking pack-years: 3.00 Smoking status: Former smoker Tobacco type: cigarettes Smoking end date: 02/18/06 Alcohol intake: never Substance use: current Substance use type: marijuana Other substance usage details: USES FO
[2022-09-04 01:53] LABS: Basophils Absolute Auto 0.1 K/mm3 (0.0-0.1); Basophils Percent Auto 0.5 % (0.2-1.2); Eosinophils Absolute Auto 0.1 K/mm3 (0-0.3); Eosinophils Percent Auto 1.1 % (0-4.4); Hematocrit 37.1 % (37.0-47.0); Hemoglobin 11.9 g/dL (12.0-15.0); Immature Granulocyte Absolute 0.04 K/mm3 (0.00-0.031); Immature Granulocyte Percent A 0.3 % (0-0.5); Lymphocytes Absolute Auto 2.76 K/mm3 (0.9-3.2); Mean Corpuscular HGB Conc 32.1 g/dl (32-36); Mean Corpuscular Hemoglobin 30.1 pg (26-34); Mean Corpuscular Volume 93.9 fl (80-100); Mean Platelet Volume 9.6 fl (7.4-10.4); Monocytes Absolute Auto 0.9 K/mm3 (0.1-0.6); Neutrophils Absolute Auto 7.6 K/mm3 (1.3-6.7); Neutrophils Percent Auto 66.1 % (45.5-73.1); Platelet Count Result 453 k/mm3 (150-375); Red Blood Count 3.95 M/mm3 (4.2-5.4); Red Cell Distribution Width 11.9 % (11.5-14.5); White Blood Count 11.5 K/mm3 (4.5-10.0)
[2022-09-04] MEDS: KETOROLAC 15 MG/ML VIAL (*BKC) IV PUSH (01:55)
[2022-09-04 02:04] LABS: Alanine Aminotransferase 32 U/L (6-35); Albumin Level 4.1 g/dL (3.5-5.1); Alkaline Phosphatase 103 U/L (38-126); Anion Gap 4 mmol/L (8-16); Aspartate Amino Transferase 31 U/L (14-36); Bilirubin,Total 0.3 mg/dL (0.2-1.3); Blood Urea Nitrogen 12 mg/dL (7-17); CRP 2.5 mg/dL (<1.0); Calcium 8.8 mg/dL (8.4-10.2); Carbon Dioxide 33 mmol/L (22-30); Chloride 99 mmol/L (98-107); Estimated CRCL calculation 89 ml/min; Estimated Glomerular Filt Rate > 60; Glucose 232 mg/dL (65-110); Potassium 3.7 mmol/L (3.4-5.0); Sodium 136 mmol/L (137-145)
[2022-09-04 02:15] LABS: Estimated CRCL calculation 74 ml/min; Estimated Glomerular Filt Rate 51
[2022-09-04] MEDS: CEFEPIME 2 GM/NS 50 ML 2 GM/50 ML BAG IVPB ×3 (02:32→23:10)
[2022-09-04] MEDS: metroNIDAZOLE 500 MG/ISO 100ML 500 MG/100 ML BAG 100 MG IVPB (03:08)
[2022-09-04] MEDS: VANCOMYCIN 1,250 MG/NS 250 ML 1,250 MG/250 ML BAG 166.67 MG IVPB ×2 (04:09→05:55)
--- NOTE | 2022-09-04 05:00 | ADMGEN ---
This patient, Elise Luevano, was admitted to Medical Room 343-01. Patient/family oriented to hospital policies and general routines including ID bracelet, bed and alarms, visiting hours, pain management, procedures, bathroom and other care routines, personal items, smoking policy, room service/diet, and visiting hours. Information on how to activate the Rapid Response Team has been discussed. Patient/Family are encouraged to report perceived risks to care and to ask questions if they do not understand what they are told or what they should do.
[2022-09-04] MEDS: SODIUM CHLORIDE 0.9% IV 1,000 ML 125 ML IV CONT ×3 (05:55→23:14)
[2022-09-04 08:18] LABS: Glucose Point of Care 147 mg/dl (65-105)
--- NOTE | 2022-09-04 09:39 | PM.IMHP ---
H&P: HPI History of Present Illness Date/Time: 09/04/22 09:39 Chief Complaint: Diabetic foot ulcer Narrative: 37-year-old past medical history of insulin-dependent diabetes presents with left great toe pain shortness 3 weeks. She was seen last week for the same was treated antibiotics and wound care. His started to have more pain and swelling in great toe present back to the ER for evaluation. She denies any fever chills. History of hypertension/hyperlipidemia/insulin-dependent diabetes on insulin pump/morbid obesity/schizophrenia/anxiety/depression/chronic back pain. Mildly elevated WBC at 11.5 with slightly elevated CRP. CT scan negative for underlying osteomyelitis. Started on IV vancomycin and IV cefepime and Flagyl that was given in the ER. She currently as the insulin pump. Review of Systems Review of Systems: - CONSTITUTIONAL: Denies weight loss, fever and chills. - HEENT: Denies changes in vision and hearing - RESPIRATORY: Denies SOB and cough. - CV: Denies palpitations and CP. - GI: Denies abdominal pain, nausea, vomiting and diarrhea. - : Denies dysuria and urinary frequency. - MSK: Denies myalgia and joint pain. - SKIN: Denies rash and pruritus. - NEUROLOGICAL: Denies headache and syncope. - PSYCHIATRIC: Denies recent changes in mood. Denies anxiety and depression. [facility] Past Medical History Medical History Abdominal mass Adenoiditis Anemia Anxiety Back pain Body mass index (BMI) greater than 40 (12/18/17) Cellulitis of left thigh Cholecystitis Chronic diarrhea Depression Essential hypertension History of deviated nasal septum Hyperlipidemia Hypertension Hypertrophy of both inferior nasal turbinates Hyponatremia Insulin pump in place Lipoma Medial left thigh slightly above knee. manager terminal (current) use of insulin Morbid obesity with BMI of 45.0-49.9, adult Other chronic pain Schizophrenia Subcutaneous mass of right upper extremity Thrombocytosis Type 2 diabetes mellitus Surgical History Surgical History H/O excision of mass exc rt forearm subcutaneous mass x 2 05/22/21 H/O excision of mass Excision of subQ mass left thigh mass on 11/21/21. H/O tubal ligation BL History of back surgery X5 S/P laparoscopic surgery 2019 Family History Family History (Updated 09/04/22 @ 05:16 by Danuta Alvarez RN) Father Diabetes mellitus Mother Diabetes mellitus Cerebrovascular accident Hypertension Grandparent Diabetes mellitus Other Kidney disease Skin cancer Social History Social History Social History: caffeine- occasionally Smoking packs per day: 0.5 Smoking cigarettes per day: 10.0 Years smoked: 6 Smoking pack-years: 3.00 Smoking status: Current every day smoker Tobacco type: cigarettes Smokeless tobacco user: other Smoking end date: 02/18/06 Additional smoking assessment comments: MARIJUANA Alcohol intake: never Substance use: current Substance use type: marijuana Other substance usage details: USES FOR BACK PAIN Last use: [id number] Lack of Transportation: No Lack of Food: Never True Current Housing: I Have Housing Concerned About Future Housing: No Difficulty Paying Gas/Electric Bills: No Difficulty Paying for Meds: No Currently Unemployed: No Education: High School Diploma/GED Difficulty w/ Childcare or Family Care: No Living arrangements: with family Occupation/Education: other Additional occupation/education comments: Disabled Gender identity (if verbalized by the patient): Female Spiritual care concerns: No Meds Home Medications and Allergies Home Medications Medication Instructions Recorded Confirmed Type insulin syringe-needle U-100 0.5 #100 ea 08/27/19 09/04/22 Rx mL 29 gauge x 1/2
--- NOTE | 2022-09-04 10:00 | PC.NURSE ---
Hospitalist Nina came to assess pt. Spoke with RN about continuing CGM and stated pt is competent to manage it while in the hospital. RN printed policy and consent and went to explain it to pt. Pt expressed confusion on how to fill out the pump sheet and was not sure on what her basal or bolus rate is. RN tried explaining this to the pt, however pt was not understanding. RN told hospitalist about this, who then went into the room to explain it again to pt and reassess competency. Per Nina, pt is now understanding and able to fill out her own pump sheet / sign consent / manage CGM.
[2022-09-04 12:01] LABS: Glucose Point of Care 159 mg/dl (65-105)
[2022-09-04] MEDS: SIMVASTATIN 20 MG TABLET 40 MG BY MOUTH (13:51)
[2022-09-04] MEDS: cloNIDine HCL 0.1 MG TABLET PO (13:51)
[2022-09-04] MEDS: lisinopriL 5 MG TABLET PO (13:52)
[2022-09-04] MEDS: lamoTRIgine 100 MG TABLET PO (13:52)
[2022-09-04] MEDS: metroNIDAZOLE 250 MG TABLET 500 MG PO ×2 (13:52→21:05)
[2022-09-04] MEDS: FLUoxetine HCL 20 MG CAPSULE 40 MG PO (13:52)
[2022-09-04] MEDS: PROPRANOLOL HCL 20 MG TABLET PO ×2 (13:52→21:05)
[2022-09-04] MEDS: ENOXAPARIN 40 MG/0.4 ML SYRINGE SUB-Q (13:52)
--- NOTE | 2022-09-04 16:53 | PM.CNGS ---
Assessment and Plan Assessment and plan (1) Diabetic foot ulcer: Qualifiers: Diabetic foot ulcer location: toe Diabetes mellitus type: type 1 Laterality: left Non-pressure ulcer stage: with fat layer exposed Qualified Code(s): E10.621 - Type 1 diabetes mellitus with foot ulcer; L97.522 - Non-pressure chronic ulcer of other part of left foot with fat layer exposed Code(s): E11.621 - Type 2 diabetes mellitus with foot ulcer; L97.509 - Non-pressure chronic ulcer of other part of unspecified foot with unspecified severity Status: Acute Assessment and Plan: I have reviewed the CT and foot x-ray and discussed the findings with the patient. She appears to have evidence of a soft tissue infection involving the medial plantar surface of her left great toe. This should likely improve with local wound care. Will start silver gel topical treatment with gauze dressing. Will also ask wound care nurses to see patient for current treatment and plans for further outpatient treatment. Discussed with patient that debridement or amputation does not appear necessary this time but if the wound continues to worsen then either of these options would need to be taken into consideration. Strict glucose control was also advised. Appears patient does typically keep her glucose levels fairly well controlled with her current regimen. Will repeat a hemoglobin A1c since it has not been done since March. Continue antibiotics per hospitalist. (2) Cellulitis in diabetic foot: Code(s): E11.628 - Type 2 diabetes mellitus with other skin complications; L03.119 - Cellulitis of unspecified part of limb Status: Acute (3) Type 1 diabetes mellitus: Code(s): E10.9 - Type 1 diabetes mellitus without complications Status: Acute History of Present Illness Consult details Consult date: 09/04/22 Reason for consult: other (Left diabetic foot wound) Requesting physician: Kevin Wood MD Narrative: This is a 37-year-old woman who I am asked to see for a left diabetic foot ulcer. Patient states that this started several weeks ago and has progressively worsened. She had a small black eschar initially in the center but this developed into a slightly worsening swelling of left great toe. She has never had anything like this before. She did have a callus over this area for a long period of time prior to the wound developing. She has been diabetic for 20 years. She does see an commissary assistant for continued care and overall her glucose control has improved. Her last hemoglobin A1c was 5 months ago. She does feel like she has sensation to the bottom of her foot. She denies any prior history of vascular problems. She has been admitted for further treatment of cellulitis to the left foot. Review of Systems Review of Systems: All systems reviewed & are unremarkable except as noted in HPI and below Constitutional: Constitutional: Denies chills and Denies fever(s) Eyes: Eyes: Denies change in vision ENT: Denies hearing loss, Denies neck pain and Denies sore throat Cardiovascular: Cardiovascular: Denies chest pain and Denies dyspnea Respiratory: Respiratory: Denies cough, Denies dyspnea and Denies wheezing Gastrointestinal: Gastrointestinal: Denies abdominal pain, Denies nausea and Denies vomiting Genitourinary: Genitourinary: Denies hematuria and Denies dysuria Musculoskeletal: Musculoskeletal: Denies arthralgias, Reports joint swelling (Left great toe) and Denies neck pain Allergic/Immunologic: Allergic/Immunologic: Denies wheezing [facility] Past Medical History Medical History Abdominal mass Adenoiditis Anemia Anxiety Back pain Body mass index (BMI) greater than 40 (12/18/17) Cellulitis of left thigh Cholecystitis Chronic diarrhea Depression Essential hypertension History of deviated nasal septum Hyperlipidemia Hypertension Hypertrophy of both inferior
[2022-09-04 17:09] LABS: Glucose Point of Care 140 mg/dl (65-105)
[2022-09-04] MEDS: SILVERGEL (ELTA) 45 ML 1 APPLIC TOPICAL (17:30)
[2022-09-04] MEDS: KETOROLAC 30 MG/ML VIAL (*BKC) IV PUSH (21:05)
[2022-09-04] MEDS: OLANZapine 5 MG TABLET 20 MG PO (21:05)
[2022-09-04 21:10] LABS: Glucose Point of Care 118 mg/dl (65-105)
[2022-09-05 05:14] VITALS: BP 128/77; PULSE 81; RESP 16; TEMP 36.4; O2SAT 98
[2022-09-05] MEDS: metroNIDAZOLE 250 MG TABLET 500 MG PO ×3 (05:27→21:30)
[2022-09-05 05:54] LABS: Basophils Percent Auto 0.3 % (0.2-1.2); Eosinophils Absolute Auto 0.1 K/mm3 (0-0.3); Eosinophils Percent Auto 1.4 % (0-4.4); Hematocrit 33.4 % (37.0-47.0); Hemoglobin 10.8 g/dL (12.0-15.0); Immature Granulocyte Absolute 0.03 K/mm3 (0.00-0.031); Immature Granulocyte Percent A 0.3 % (0-0.5); Lymphocytes Absolute Auto 1.75 K/mm3 (0.9-3.2); Lymphocytes Percent Auto 18.5 % (18.3-44.2); Mean Corpuscular HGB Conc 32.3 g/dl (32-36); Mean Corpuscular Hemoglobin 30.3 pg (26-34); Mean Corpuscular Volume 93.8 fl (80-100); Mean Platelet Volume 9.7 fl (7.4-10.4); Monocytes Absolute Auto 0.8 K/mm3 (0.1-0.6); Monocytes Percent Auto 8.6 % (2.6-8.5); Neutrophils Absolute Auto 6.7 K/mm3 (1.3-6.7); Neutrophils Percent Auto 70.9 % (45.5-73.1); Platelet Count Result 390 k/mm3 (150-375); Red Blood Count 3.56 M/mm3 (4.2-5.4); Red Cell Distribution Width 12.1 % (11.5-14.5); White Blood Count 9.5 K/mm3 (4.5-10.0)
[2022-09-05 06:08] LABS: Alanine Aminotransferase 26 U/L (6-35); Albumin Level 3.1 g/dL (3.5-5.1); Alkaline Phosphatase 70 U/L (38-126); Anion Gap 4 mmol/L (8-16); Aspartate Amino Transferase 26 U/L (14-36); Bilirubin,Total 0.3 mg/dL (0.2-1.3); Blood Urea Nitrogen 12 mg/dL (7-17); Calcium 8.1 mg/dL (8.4-10.2); Carbon Dioxide 30 mmol/L (22-30); Chloride 106 mmol/L (98-107); Estimated CRCL calculation 109 ml/min; Estimated Glomerular Filt Rate > 60; Glucose 85 mg/dL (65-110); Potassium 3.5 mmol/L (3.4-5.0); Sodium 140 mmol/L (137-145)
[2022-09-05 06:51] LABS: Hemoglobin A1C 7.1 % (<5.7)
[2022-09-05 08:41] LABS: Glucose Point of Care 83 mg/dl (65-105)
[2022-09-05] MEDS: ENOXAPARIN 40 MG/0.4 ML SYRINGE SUB-Q (09:20)
[2022-09-05] MEDS: CEFEPIME 2 GM/NS 50 ML 2 GM/50 ML BAG IVPB ×2 (09:21→21:29)
[2022-09-05] MEDS: lisinopriL 5 MG TABLET PO (09:22)
[2022-09-05] MEDS: cloNIDine HCL 0.1 MG TABLET PO (09:22)
[2022-09-05] MEDS: FLUoxetine HCL 20 MG CAPSULE 40 MG PO (09:22)
[2022-09-05 09:23] VITALS: PULSE 93
[2022-09-05] MEDS: lamoTRIgine 100 MG TABLET PO (09:23)
[2022-09-05] MEDS: PROPRANOLOL HCL 20 MG TABLET PO ×2 (09:23→21:30)
[2022-09-05] MEDS: SIMVASTATIN 20 MG TABLET 40 MG BY MOUTH (09:23)
[2022-09-05 09:25] VITALS: PULSE 93; RESP 16; O2SAT 98
[2022-09-05 12:14] LABS: Glucose Point of Care 85 mg/dl (65-105)
--- NOTE | 2022-09-05 14:16 | PM.PNGS ---
Progress Note: A&P Assessment and Plan (1) Diabetic foot ulcer: Qualifiers: Diabetes mellitus type: type 1 Diabetic foot ulcer location: toe Laterality: left Non-pressure ulcer stage: with fat layer exposed Qualified Code(s): E10.621 - Type 1 diabetes mellitus with foot ulcer; L97.522 - Non-pressure chronic ulcer of other part of left foot with fat layer exposed Code(s): E11.621 - Type 2 diabetes mellitus with foot ulcer; L97.509 - Non-pressure chronic ulcer of other part of unspecified foot with unspecified severity Status: Acute Assessment and Plan: Foot wound looks stable and erythema is improving. Continue antibiotics per hospitalist. Will continue local wound care for now, but anticipate no debridement needed at this time. Patient will be followed up with a bricklayer's assistant as an outpatient and already has an appointment in September. (2) Type 1 diabetes mellitus: Code(s): E10.9 - Type 1 diabetes mellitus without complications Status: Acute Subjective Subjective Date/Time Seen: 09/05/22 14:16 Interval history: Patient doing well. Pain improving. No significant drainage since dressing was placed yesterday. Exam Extrem: Other: Left great toe plantar ulcer with no significant surrounding erythema. No expressible purulence. No signs of tunneling or bone involvement. Objective Data Vital Signs Vital Signs: Vital Signs - 24 hr 09/04/22 21:01 09/04/22 21:05 09/05/22 05:14 Temperature 36.2 C L 36.4 C Pulse Rate 79 79 81 Respiratory Rate 18 16 Blood Pressure 121/66 128/77 Pulse Oximetry 97 98 Oxygen Delivery 09/05/22 09:23 09/05/22 09:25 Temperature Pulse Rate 93 93 Respiratory Rate 16 Blood Pressure Pulse Oximetry 98 Oxygen Delivery Room Air Intake/Output Intake/Output: Intake & Output 09/02/22 09/03/22 09/04/22 09/05/22 23:59 23:59 23:59 23:59 Intake Total 4210 610 Balance 4210 610 Meds/Results Medications: Active Medications Generic Name Dose Route Start Last Admin Trade Name Freq PRN Reason Stop Dose Admin Clonidine HCl 0.1 mg 09/04/22 13:00 09/05/22 09:22 Clonidine Hcl 0.1 Mg Tablet PO 0.1 mg DAILY KAREN Administration Dextrose 12.5 gm 09/04/22 12:46 Dextrose 50% 25 Gm/50 Ml Syringe IV PUSH PRN PRN Hypoglycemia Protocol Enoxaparin Sodium 40 mg 09/04/22 13:05 09/05/22 09:20 Enoxaparin 40 Mg/0.4 Ml Syringe SUB-Q 40 mg DAILY KAREN Administration Fluoxetine HCl 40 mg 09/04/22 13:05 09/05/22 09:22 Fluoxetine Hcl 20 Mg Capsule PO 40 mg DAILY KAREN Administration Glucagon 1 mg 09/04/22 12:46 Glucagon For Inj 1 Mg Vial IM PRN PRN Hypoglycemia Protocol Glucose 15 gm 09/04/22 12:46 Glucose Oral Gel 15 Gm Of Glucse In 37.5 Gm Tube PO PRN PRN Hypoglycemia Protocol Vancomycin HCl 1,500 mg in 500 mls @ 250 mls/hr 09/04/22 21:00 09/04/22 23:05 Vancomycin 1,500 Mg/D5w 500 Ml IVPB Infused Q18H KAREN Infusion Sodium Chloride 1,000 mls @ 125 mls/hr 09/04/22 03:15 09/04/22 23:14 Normal Saline Iv IV CONT 125 mls/hr .Q8H KAREN Administration Dextrose 1,000 mls @ 100 mls/hr 09/04/22 12:46 Dextrose 5% 1,000 Ml IVPB PRN PRN Hypoglycemia Protocol Cefepime HCl 2 gm in 50 mls @ 100 mls/hr 09/04/22 13:00 09/05/22 09:50 Maxipime 2 Gm/Ns 50 Ml IVPB Infused Q12HR KAREN Infusion Ibuprofen 800 mg 09/04/22 12:49 Ibuprofen 400 Mg Tablet PO Q6H PRN Pain 1-3 Ketorolac Tromethamine 30 mg 09/04/22 03:14 09/04/22 21:05 Ketorolac 30 Mg/Ml Vial (*Bk) IV PUSH 09/09/22 03:13 30 mg Q6H PRN Administration Pain Rated 4-6 Lamotrigine 100 mg 09/04/22 13:05 09/05/22 09:23 Lamotrigine 100 Mg Tablet PO 100 mg DAILY KAREN Administration Lisinopril 5 mg 09/04/22 13:05 09/05/22 09:22 Lisinopril 5 Mg Tablet PO 5 mg DAILY KAREN Administration Metronidazole 500 mg 08/18
[2022-09-05 14:21] VITALS: BP 128/72; PULSE 84; RESP 18; TEMP 36.5; O2SAT 99
[2022-09-05] MEDS: SODIUM CHLORIDE 0.9% IV 1,000 ML 125 ML IV CONT (14:25)
[2022-09-05 14:40] LABS: Vancomycin Trough 8.8 ug/mL (10.0-20.0)
--- NOTE | 2022-09-05 15:58 | PM.IMPN ---
Progress Note: A&P Assessment and Plan (1) Diabetic foot ulcer: Qualifiers: Diabetes mellitus type: type 1 Diabetic foot ulcer location: toe Laterality: left Non-pressure ulcer stage: with fat layer exposed Qualified Code(s): E10.621 - Type 1 diabetes mellitus with foot ulcer; L97.522 - Non-pressure chronic ulcer of other part of left foot with fat layer exposed Code(s): E11.621 - Type 2 diabetes mellitus with foot ulcer; L97.509 - Non-pressure chronic ulcer of other part of unspecified foot with unspecified severity Status: Acute Assessment and Plan: 37-year-old past medical history of insulin-dependent diabetes presents with left great toe pain shortness 3 weeks. She was seen last week for the same was treated antibiotics and wound care. His started to have more pain and swelling in great toe present back to the ER for evaluation. Mildly elevated WBC at 11.5 with slightly elevated CRP. CT scan negative for underlying osteomyelitis. Left foot diabetic ulcer with surrounding cellulitis continue vancomycin cefepime and Flagyl. General surgery consulted Wound care consulted She does have appointment with locksmith coming up in September. Advised she keep this appointment. (2) Cellulitis in diabetic foot: Code(s): E11.628 - Type 2 diabetes mellitus with other skin complications; L03.119 - Cellulitis of unspecified part of limb Status: Acute Assessment and Plan: See above (3) Type 1 diabetes mellitus: Code(s): E10.9 - Type 1 diabetes mellitus without complications Status: Acute Assessment and Plan: Patient uses Dexcom. Basal 1.6 units/hour Total daily dose insulin 62.1 units per day Insulin carb ratio 10 Last A1c 7.4 (4) Schizophrenia: Qualifiers: Schizophrenia type: unspecified Qualified Code(s): F20.9 - Schizophrenia, unspecified Code(s): F20.9 - Schizophrenia, unspecified Status: Acute Assessment and Plan: Continue home medications. Plan DVT prophylaxis Lovenox Subjective Date/time seen: 09/05/22 15:58 Interval history: Patient doing well and sitting up to bed. She states that she developed this wound several weeks ago and it started out as a callus that she ended up picking. She does have pain in her foot but denies any systemic symptoms such as body aches, chills, dizziness, nausea and vomiting. Review of Systems Review of Systems: All systems reviewed & are unremarkable except as noted in HPI and below Exam Narrative: GENERAL: Comfortable, no acute distress HENMT: moist mucous membranes EYES: EOM intact b/l NECK: no lymphadenopathy RESPIRATORY: clear to auscultation CARDIO: RRR GI: soft, nontender, bowel sounds present SKIN: no rashes EXTREMITIES: Left 1st toe diabetic ulcer has bandages in place. Objective Data Vital Signs Vital Signs: Vital Signs - 24 hr 09/04/22 21:01 09/04/22 21:05 09/05/22 05:14 Temperature 97.2 F L 97.6 F Pulse Rate 79 79 81 Respiratory Rate 18 16 Blood Pressure 121/66 128/77 Pulse Oximetry 97 98 Oxygen Delivery 09/05/22 09:23 09/05/22 09:25 09/05/22 14:21 Temperature 97.7 F Pulse Rate 93 93 84 Respiratory Rate 16 18 Blood Pressure 128/72 Pulse Oximetry 98 99 Oxygen Delivery Room Air Intake/Output Intake/Output: Intake & Output 09/02/22 09/03/22 09/04/22 09/05/22 23:59 23:59 23:59 23:59 Intake Total 4210 1610 Balance 4210 1610 Meds/Results Medications: Active Medications Generic Name Dose Route Start Last Admin Trade Name Freq PRN Reason Stop Dose Admin Clonidine HCl 0.1 mg 09/04/22 13:00 09/05/22 09:22 Clonidine Hcl 0.1 Mg Tablet PO 0.1 mg DAILY KAREN Administration Dextrose 12.5 gm 09/04/22 12:46 Dextrose 50% 25 Gm/50 Ml Syringe IV PUSH PRN PRN Hypoglycemia Protocol Enoxaparin Sodium 40 mg 09/04/22 13:05 09/05/22 09:20 Enoxaparin 40 Mg/0.4 Ml S
[2022-09-05 17:21] LABS: Glucose Point of Care 119 mg/dl (65-105)
[2022-09-05 19:14] VITALS: BP 145/75; PULSE 89; RESP 18; TEMP 36.6; O2SAT 99
[2022-09-05 21:24] LABS: Glucose Point of Care 171 mg/dl (65-105)
[2022-09-05] MEDS: OLANZapine 5 MG TABLET 20 MG PO (21:30)
[2022-09-05] MEDS: KETOROLAC 30 MG/ML VIAL (*BKC) IV PUSH (21:58)
[2022-09-06 03:55] VITALS: BP 137/77; PULSE 78; RESP 18; TEMP 36.8; O2SAT 99
[2022-09-06] MEDS: metroNIDAZOLE 250 MG TABLET 500 MG PO ×2 (05:22→16:01)
[2022-09-06 05:53] LABS: Basophils Percent Auto 0.5 % (0.2-1.2); Eosinophils Absolute Auto 0.2 K/mm3 (0-0.3); Eosinophils Percent Auto 2.6 % (0-4.4); Hemoglobin 10.5 g/dL (12.0-15.0); Immature Granulocyte Absolute 0.02 K/mm3 (0.00-0.031); Immature Granulocyte Percent A 0.2 % (0-0.5); Lymphocytes Absolute Auto 1.66 K/mm3 (0.9-3.2); Mean Corpuscular HGB Conc 31.8 g/dl (32-36); Mean Corpuscular Hemoglobin 29.9 pg (26-34); Mean Platelet Volume 9.5 fl (7.4-10.4); Monocytes Absolute Auto 0.7 K/mm3 (0.1-0.6); Monocytes Percent Auto 7.9 % (2.6-8.5); Neutrophils Absolute Auto 6.1 K/mm3 (1.3-6.7); Neutrophils Percent Auto 69.8 % (45.5-73.1); Platelet Count Result 345 k/mm3 (150-375); Red Blood Count 3.51 M/mm3 (4.2-5.4); Red Cell Distribution Width 12.3 % (11.5-14.5); White Blood Count 8.7 K/mm3 (4.5-10.0)
[2022-09-06 06:09] LABS: Alanine Aminotransferase 37 U/L (6-35); Alkaline Phosphatase 67 U/L (38-126); Anion Gap 2 mmol/L (8-16); Aspartate Amino Transferase 42 U/L (14-36); Bilirubin,Total 0.3 mg/dL (0.2-1.3); Blood Urea Nitrogen 9 mg/dL (7-17); Calcium 7.9 mg/dL (8.4-10.2); Carbon Dioxide 28 mmol/L (22-30); Chloride 108 mmol/L (98-107); Estimated CRCL calculation 109 ml/min; Estimated Glomerular Filt Rate > 60; Glucose 91 mg/dL (65-110); Potassium 3.5 mmol/L (3.4-5.0); Sodium 138 mmol/L (137-145)
[2022-09-06 08:27] LABS: Glucose Point of Care 114 mg/dl (65-105)
[2022-09-06 09:33] VITALS: PULSE 88
[2022-09-06] MEDS: FLUoxetine HCL 20 MG CAPSULE 40 MG PO (09:33)
[2022-09-06] MEDS: SIMVASTATIN 20 MG TABLET 40 MG BY MOUTH (09:33)
[2022-09-06] MEDS: cloNIDine HCL 0.1 MG TABLET PO (09:33)
[2022-09-06] MEDS: lisinopriL 5 MG TABLET PO (09:33)
[2022-09-06] MEDS: lamoTRIgine 100 MG TABLET PO (09:33)
[2022-09-06] MEDS: PROPRANOLOL HCL 20 MG TABLET PO (09:33)
[2022-09-06] MEDS: CEFEPIME 2 GM/NS 50 ML 2 GM/50 ML BAG IVPB (09:34)
[2022-09-06] MEDS: SODIUM CHLORIDE 0.9% IV 1,000 ML 125 ML IV CONT (09:34)
[2022-09-06] MEDS: ENOXAPARIN 40 MG/0.4 ML SYRINGE SUB-Q (09:35)
[2022-09-06 12:46] LABS: Glucose Point of Care 197 mg/dl (65-105)
--- NOTE | 2022-09-06 13:14 | PM.PNGS ---
Progress Note: A&P Assessment and Plan (1) Diabetic foot ulcer: Qualifiers: Diabetes mellitus type: type 1 Diabetic foot ulcer location: toe Laterality: left Non-pressure ulcer stage: with fat layer exposed Qualified Code(s): E10.621 - Type 1 diabetes mellitus with foot ulcer; L97.522 - Non-pressure chronic ulcer of other part of left foot with fat layer exposed Code(s): E11.621 - Type 2 diabetes mellitus with foot ulcer; L97.509 - Non-pressure chronic ulcer of other part of unspecified foot with unspecified severity Status: Acute Assessment and Plan: No debridement needed. Continue local wound care. Follow up with Physical Education Aide as scheduled. OK to discharge from surgical standpoint. No follow up with me needed. (2) Type 1 diabetes mellitus: Code(s): E10.9 - Type 1 diabetes mellitus without complications Status: Acute Subjective Subjective Date/Time Seen: 09/06/22 13:14 Interval history: tolerating wound care, no new issues. Exam Extrem: Other: Left great toe plantar ulcer with no significant surrounding erythema. No expressible purulence. No signs of tunneling or bone involvement. Objective Data Vital Signs Vital Signs: Vital Signs - 24 hr 09/05/22 14:21 09/05/22 19:14 09/06/22 03:55 Temperature 36.5 C 36.6 C 36.8 C Pulse Rate 84 89 78 Respiratory Rate 18 18 18 Blood Pressure 128/72 145/75 H 137/77 Pulse Oximetry 99 99 99 09/06/22 09:33 Temperature Pulse Rate 88 Respiratory Rate Blood Pressure Pulse Oximetry Intake/Output Intake/Output: Intake & Output 09/03/22 09/04/22 09/05/22 09/06/22 23:59 23:59 23:59 23:59 Intake Total 4210 3480 420 Balance 4210 3480 420 Meds/Results Medications: Active Medications Generic Name Dose Route Start Last Admin Trade Name Freq PRN Reason Stop Dose Admin Clonidine HCl 0.1 mg 09/04/22 13:00 09/06/22 09:33 Clonidine Hcl 0.1 Mg Tablet PO 0.1 mg DAILY KAREN Administration Dextrose 12.5 gm 09/04/22 12:46 Dextrose 50% 25 Gm/50 Ml Syringe IV PUSH PRN PRN Hypoglycemia Protocol Enoxaparin Sodium 40 mg 09/04/22 13:05 09/06/22 09:35 Enoxaparin 40 Mg/0.4 Ml Syringe SUB-Q 40 mg DAILY KAREN Administration Fluoxetine HCl 40 mg 09/04/22 13:05 09/06/22 09:33 Fluoxetine Hcl 20 Mg Capsule PO 40 mg DAILY KAREN Administration Glucagon 1 mg 09/04/22 12:46 Glucagon For Inj 1 Mg Vial IM PRN PRN Hypoglycemia Protocol Glucose 15 gm 09/04/22 12:46 Glucose Oral Gel 15 Gm Of Glucse In 37.5 Gm Tube PO PRN PRN Hypoglycemia Protocol Sodium Chloride 1,000 mls @ 125 mls/hr 09/04/22 03:15 09/06/22 09:34 Normal Saline Iv IV CONT 125 mls/hr .Q8H KAREN Administration Dextrose 1,000 mls @ 100 mls/hr 09/04/22 12:46 Dextrose 5% 1,000 Ml IVPB PRN PRN Hypoglycemia Protocol Cefepime HCl 2 gm in 50 mls @ 100 mls/hr 09/04/22 13:00 09/06/22 09:34 Maxipime 2 Gm/Ns 50 Ml IVPB 100 mls/hr Q12HR KAREN Administration Vancomycin HCl 1,750 mg in 500 mls @ 250 mls/hr 09/05/22 16:00 09/06/22 03:58 Vancomycin 1,750 Mg/D5w 500 Ml IVPB 250 mls/hr Q12H KAREN Administration Ibuprofen 800 mg 09/04/22 12:49 Ibuprofen 400 Mg Tablet PO Q6H PRN Pain 1-3 Ketorolac Tromethamine 30 mg 09/04/22 03:14 09/05/22 21:58 Ketorolac 30 Mg/Ml Vial (*[facility]) IV PUSH 09/09/22 03:13 30 mg Q6H PRN Administration Pain Rated 4-6 Lamotrigine 100 mg 09/04/22 13:05 09/06/22 09:33 Lamotrigine 100 Mg Tablet PO 100 mg DAILY KAREN Administration Lisinopril 5 mg 09/04/22 13:05 09/06/22 09:33 Lisinopril 5 Mg Tablet PO 5 mg DAILY KAREN Administration Metronidazole 500 mg 09/04/22 14:00 09/06/22 05:22 Metronidazole 250 Mg Tablet PO 500 mg Q8HR KAREN Administration Non-Formulary Medication 1.5 mg 09/11/22 09:00 Dulaglutide [Trulicity] SUB-Q 10/11/22 08:59 WEEKLY KAREN
--- NOTE | 2022-09-06 13:35 | PM.DS ---
DS: Admitting Diagnosis Discharge Date 09/06/22 Admitting Diagnosis Diabetic foot ulcer DS: Discharge Diagnosis Discharge Diagnosis (1) Diabetic foot ulcer: Qualifiers: Diabetes mellitus type: type 1 Diabetic foot ulcer location: toe Laterality: left Non-pressure ulcer stage: with fat layer exposed Qualified Code(s): E10.621 - Type 1 diabetes mellitus with foot ulcer; L97.522 - Non-pressure chronic ulcer of other part of left foot with fat layer exposed Code(s): E11.621 - Type 2 diabetes mellitus with foot ulcer; L97.509 - Non-pressure chronic ulcer of other part of unspecified foot with unspecified severity Status: Acute Assessment and Plan: 37-year-old past medical history of insulin-dependent diabetes presents with left great toe pain shortness 3 weeks. She was seen last week for the same was treated antibiotics and wound care. His started to have more pain and swelling in great toe present back to the ER for evaluation. Mildly elevated WBC at 11.5 with slightly elevated CRP On admission, now within normal limits. CT scan negative for underlying osteomyelitis. Vancomycin cefepime and Flagyl Transition to cefdinir doxy at discharge. General surgery consulted Wound care consulted She does have appointment with ventilating expert coming up in September. Advised she keep this appointment. (2) Cellulitis in diabetic foot: Code(s): E11.628 - Type 2 diabetes mellitus with other skin complications; L03.119 - Cellulitis of unspecified part of limb Status: Acute Assessment and Plan: See above (3) Type 1 diabetes mellitus: Code(s): E10.9 - Type 1 diabetes mellitus without complications Status: Acute Assessment and Plan: Patient uses Dexcom. Basal 1.6 units/hour Total daily dose insulin 62.1 units per day Insulin carb ratio 10 Last A1c 7.4 (4) Schizophrenia: Qualifiers: Schizophrenia type: unspecified Qualified Code(s): F20.9 - Schizophrenia, unspecified Code(s): F20.9 - Schizophrenia, unspecified Status: Acute Assessment and Plan: Continue home medications. Plan DVT prophylaxis Lovenox DS: Summary Hospital Course Hospital Course: This is a 37-year-old female with a past medical history of insulin-dependent diabetes, hypertension, anxiety and depression , schizophrenia presents to the ED on 09/04/2022 due to left great toe pain for approximately 3 weeks. She has previously seen in the ED a couple weeks ago for the same problem. she was found to have mildly elevated white blood cell count at 11.5. CT scan negative for underlying osteomyelitis. She was started on vancomycin, cefepime and Flagyl. General surgery consulted. General surgery did not believe she needed debridement or other surgery at this time. Wound Care consulted and recommended patient do daily dressings and apply silver gel. Patient has upcoming ventilating expert appointment in September and she was advised to keep this appointment. She received 2 days of IV antibiotic therapy. Her symptoms improved as as her vital signs she is medically for discharge on p.o. therapy. Time Spent with Patient Time attestation: Total time spent providing and/or coordinating discharge services: Exam Narrative: GENERAL: Comfortable, no acute distress HENMT: moist mucous membranes EYES: EOM intact b/l NECK: no lymphadenopathy RESPIRATORY: clear to auscultation CARDIO: RRR GI: soft, nontender, bowel sounds present SKIN: no rashes EXTREMITIES: Left 1st toe diabetic ulcer has bandages in place. DS: Data Data Completed and Pending Labs on day of discharge: Labs from last 24 hours 09/06/22 09/06/22 09/06/22 12:40 08:18 05:40 WBC 8.7 RBC 3.51 L Hgb 10.5 L Hct 33.0 L MCV 94.0 MCH 29.9 MCHC 31.8 L RDW 12.3 Plt Count 345 MPV 9.5 Immature Gran % (Auto) 0.2 Neut % (Auto) 69.8 Lymph % (Auto) 19.0 [place] % (Auto) 7.9
[2022-09-06 14:00] VITALS: BP 144/88; PULSE 86; RESP 18; TEMP 36.4; O2SAT 99
== END 2022-09-06 16:05 | disposition home or self-care (01) ==
LOC: ANHED 09-04 03:16 → ANH3MED 09-04 04:32 → ANH3MEDSUR 09-07 11:06
PROVIDERS: Internal Medicine; Surgery; Admitting Provider Internal Medicine; Emergency Provider Physician Assistant; PCP Internal Medicine; Visit Provider Internal Medicine Critical Care Medicine
DX: E11.621 Type 2 diabetes mellitus with foot ulcer (principal); Z96.41 Presence of insulin pump (external) (internal); E11.628 Type 2 diabetes mellitus with other skin complications; L03.116 Cellulitis of left lower limb; D64.9 Anemia, unspecified; R41.9 Unspecified symptoms and signs involving cognitive functions and awareness; K52.9 Noninfective gastroenteritis and colitis, unspecified; G89.29 Other chronic pain; M54.9 Dorsalgia, unspecified; F32.A Depression, unspecified; I10 Essential (primary) hypertension; E78.5 Hyperlipidemia, unspecified; E87.1 Hypo-osmolality and hyponatremia; F20.9 Schizophrenia, unspecified; Z87.891 Personal history of nicotine dependence; F12.90 Cannabis use, unspecified, uncomplicated; Z79.1 Long term (current) use of non-steroidal anti-inflammatories (NSAID); Z79.4 Long term (current) use of insulin; Z79.899 Other long term (current) drug therapy; Z83.3 Family history of diabetes mellitus; Z82.49 Family history of ischemic heart disease and other diseases of the circulatory system
CPT/HCPCS: 36415; 73701; 80053; 80202; 82948; 83036; 83735; 85025; 86140; 96361; 96365; 96366; 96367; 96372; 96374; 96375; 96376; 99285; A9270; G0378; G0379; J0692; J1650; J1836; J1885; J3370; J7030; Q9967

== ENCOUNTER 2022-09-09 16:53 | Observation (INO) | payer OTHER, SELFPAY ==
--- NOTE | ~2022-09-09 | CT_ITS ---
EXAMINATION: CT abdomen pelvis w con DATE: 09/09/2022 20:33 INDICATION: Lower abdominal cramping. Nausea, vomiting, diarrhea. TECHNIQUE: Computed tomography (CT) of the abdomen and pelvis was performed with 100 CC Omnipaque 350 intravenous contrast. Automated exposure control and iterative reconstruction technique were employe d. Exam dose: 1438.01 mGy-cm total exam DLP. COMPARISON: 03/11/2020 CT abdomen pelvis FINDINGS: Normal heart size. No pericardial or pleural effusion. The lung bases are clear of infiltra te or consolidation. Very small sliding hiatal hernia. Status post cholecystectomy. No bile duct or pancreatic duct dilatation. No hepatic, splenic, pancreatic, and adrenal or renal space-occupying mass lesion is detected 5 mm pr obable cyst of left kidney.. No urinary tract calculus or hydroureteronephrosis. The uterus, adnexal areas and urinary bladder are unremarkable. There is atherosclerotic calcification but normal caliber of the abdominal aorta. No intraperitoneal or retroperitoneal or pelvic mass lesion or adenopathy or ascites is detected. There is an air-fluid levels in the cecum, ascending colon and transverse colon. At the distal transv erse colon near the splenic flexure there may be a soft tissue constricting mass of the colon. The co rocio is decompressed beyond this point, without dilatation or fluid levels. Colonoscopy or barium enem a workup are recommended to exclude adenocarcinoma of the colon. No suspicious osteolytic or osteoblastic lesions are noted. IMPRESSION: Possible constricting obstructing mass of distal transverse colon near splenic flexure, with air-fluid levels and distention of the colon proximal to this point and decompression of the col on distal to it. Colonoscopy or barium enema are recommended for further evaluation. Reviewed, dictated and finalized at [facility]. Reviewed, dictated and finalized at [facility]. IMPRESSION: Possible constricting obstructing mass of distal transverse colon near splenic flexure, with air-fluid levels and distention of the colon proxima l to this point and decompression of the colon distal to it. Colonoscopy or barium enema are recommended for further evaluation.
[2022-09-09 17:02] VITALS: BP 162/88; PULSE 110; RESP 18; TEMP 36.6; O2SAT 98
[2022-09-09 18:21] VITALS: BP 155/132
[2022-09-09 18:46] VITALS: BP 160/99
[2022-09-09 18:51] LABS: Basophils Percent Auto 0.2 % (0.2-1.2); Eosinophils Percent Auto 0.1 % (0-4.4); Hematocrit 37.3 % (37.0-47.0); Hemoglobin 12.2 g/dL (12.0-15.0); Immature Granulocyte Absolute 0.05 K/mm3 (0.00-0.031); Immature Granulocyte Percent A 0.4 % (0-0.5); Lymphocytes Absolute Auto 1.66 K/mm3 (0.9-3.2); Mean Corpuscular HGB Conc 32.7 g/dl (32-36); Mean Corpuscular Volume 91.6 fl (80-100); Mean Platelet Volume 9.6 fl (7.4-10.4); Monocytes Absolute Auto 0.7 K/mm3 (0.1-0.6); Monocytes Percent Auto 5.7 % (2.6-8.5); Neutrophils Absolute Auto 10.3 K/mm3 (1.3-6.7); Neutrophils Percent Auto 80.6 % (45.5-73.1); Platelet Count Result 409 k/mm3 (150-375); Red Blood Count 4.07 M/mm3 (4.2-5.4); Red Cell Distribution Width 12.6 % (11.5-14.5); White Blood Count 12.8 K/mm3 (4.5-10.0)
[2022-09-09 18:58] LABS: Appearance Urine Clear (Clear); Bacteria Urine None Seen /hpf; Bilirubin Urine Negative (Negative); Blood Urine Negative (Negative); Color Urine Yellow (Yellow); Glucose Urine UA Negative (Negative); Ketones Urine 2+ mg/dL (Negative); Leukocyte Esterase Ur 1+ LEU/UL (Negative); Nitrate Urine Negative (Negative); Non Pathogenic Casts 0-2; Protein Urine Negative (Negative); RBC Urine 0-2 /hpf (0-2); Specific Grav Ur 1.013 (1.001-1.035); Squamous Epithelial Cell Urine Occasional /hpf (Few); Urobilinogen Urine 0.2 mg/dL (<2.0); pH Urine 5.5 (5.0-9.0)
[2022-09-09 19:00] LABS: Alanine Aminotransferase 38 U/L (6-35); Albumin Level 4.2 g/dL (3.5-5.1); Alkaline Phosphatase 85 U/L (38-126); Anion Gap 12 mmol/L (8-16); Aspartate Amino Transferase 37 U/L (14-36); Bilirubin,Total 0.4 mg/dL (0.2-1.3); Blood Urea Nitrogen 10 mg/dL (7-17); Calcium 9.2 mg/dL (8.4-10.2); Carbon Dioxide 26 mmol/L (22-30); Chloride 101 mmol/L (98-107); Estimated CRCL calculation 110 ml/min; Estimated Glomerular Filt Rate > 60; Glucose 81 mg/dL (65-110); Lipase 53 U/L (23-300); Potassium 3.5 mmol/L (3.4-5.0); Sodium 139 mmol/L (137-145)
[2022-09-09 19:01] VITALS: BP 154/104
[2022-09-09 19:03] LABS: Add Urine Microscopic? YES
--- NOTE | 2022-09-09 19:32 | ED.NAVMDI ---
HPI - Nausea/Vomiting/Diarrhea General Chief complaint: Nausea/Vomiting/Diarrhea <CHESTER Matta Last Filed: 09/10/22 00:06> Stated complaint: abd pain/n/v/d <CHESTER Matta Last Filed: 09/10/22 00:06> Time Seen by Provider: 09/09/22 18:22 <CHESTER Matta Last Filed: 09/10/22 00:06> Source: patient <CHESTER Matta Last Filed: 09/10/22 00:06> Mode of arrival: ambulatory <CHESTER Matta Last Filed: 09/10/22 00:06> Limitations: no limitations <CHESTER Matta Last Filed: 09/10/22 00:06> History of Present Illness HPI Narrative: Patient is a 37-year-old female who presents to the ED with report of diarrhea. Patient reports she was recently admitted to the hospital here for infected diabetic ulcer to her left first toe. She was evaluated by general surgery at that time. No evidence for osteomyelitis. She was discharged home on cefdinir and doxycycline with f/u planned. Patient has been taking these as directed. Patient reports at the time of her discharge, she was having diarrhea. Diarrhea has since persisted. Today, patient began having lower abdominal cramping and nausea with vomiting. Family is concerned she may be developing C. difficile. Patient denies any fever, urinary symptoms, rectal bleeding, melena. <CHESTER Matta Last Filed: 09/10/22 00:06> Related Data Home medications: Home Medications Medication Instructions Recorded Confirmed propranolol 20 mg tablet 20 mg PO Q12H 10/25/20 09/10/22 lamotrigine 100 mg tablet 100 mg PO DAILY 05/11/21 09/10/22 fluoxetine 40 mg capsule 40 mg PO DAILY 05/23/22 09/10/22 olanzapine 15 mg tablet 20 mg PO QHS 05/23/22 09/10/22 clonidine HCl 0.1 mg tablet 0.1 mg PO DAILY 09/04/22 09/10/22 ibuprofen 800 mg tablet 800 mg PO Q6H PRN Pain 09/04/22 09/10/22 insulin lispro 100 unit/mL 1.6 unit subcut Q1-2H 09/10/22 09/10/22 subcutaneous solution simvastatin 40 mg tablet (Zocor) 40 mg DAILY 09/10/22 09/10/22 <Christy Gama PA-C - Last Filed: 09/10/22 00:06> Allergies/Adverse reactions: Allergies Allergy/AdvReac Type Severity Reaction Status Date / Time Penicillins AdvReac Unknown swelling Verified 09/09/22 16:53 <Christy Gama PA-C - Last Filed: 09/10/22 00:06> Review of Systems Review of Systems: CONSTITUTIONAL: Denies fever, chills, or sweats. CARDIOVASCULAR: Denies chest pain. RESPIRATORY: Denies dyspnea. GASTROINTESTINAL: See HPI. GENITOURINARY: Denies dysuria or hematuria. SKIN: See HPI. MUSCULOSKELETAL: Denies back pain, joint pain, or myalgia. NEUROLOGIC: Denies headache, numbness, or weakness. <Christy Gama PA-C - Last Filed: 09/10/22 00:06> All systems reviewed & are unremarkable except as noted in HPI and below <Christy Gama PA-C - Last Filed: 09/10/22 00:06> [facility] Past Medical History Medical History: Medical History Abdominal mass Adenoiditis Anemia Anxiety Back pain Body mass index (BMI) greater than 40 (12/18/17) Cellulitis of left thigh Cholecystitis Chronic diarrhea Depression Essential hypertension History of deviated nasal septum Hyperlipidemia Hypertension Hypertrophy of both inferior nasal turbinates Hyponatremia Insulin pump in place [place] Medial left thigh slightly above knee. ferry terminal supervisor (current) use of insulin Morbid obesity with BMI of 45.0-49.9, adult Other chronic pain Schizophrenia Subcutaneous mass of right upper extremity Thrombocytosis Type 2 diabetes mellitus <Christy Gama PA-C - Last Filed: 09/10/22 00:06> Surgical History Surgical History: Surgical History H/O excision of mass exc rt forearm subcutaneous mass x 2 05/22/21 H/O excision of mass Excision of subQ mass left thigh mass on 11/21/21. H/O t
[2022-09-09] MEDS: ONDANSETRON INJ 4 MG/2 ML VIAL IV PUSH (20:19)
[2022-09-09] MEDS: SODIUM CHLORIDE 0.9% IV 1,000 ML 999 ML IV CONT (20:19)
[2022-09-09 22:16] LABS: Glucose Point of Care 57 mg/dl (65-105)
[2022-09-09] MEDS: DEXTROSE 50% 25 GM/50 ML SYRINGE IV PUSH (22:23)
[2022-09-09] MEDS: DEXTROSE 5%/0.45% SOD CHL 1,000 ML 150 ML IV CONT (23:08)
[2022-09-09 23:12] LABS: Glucose Point of Care 97 mg/dl (65-105)
--- NOTE | 2022-09-09 23:19 | ADMGEN ---
This patient, Elise Luevano, was admitted to [facility] Surg Room 328-01. Patient/family oriented to hospital policies and general routines including ID bracelet, bed and alarms, visiting hours, pain management, procedures, bathroom and other care routines, personal items, smoking policy, room service/diet, and visiting hours. Information on how to activate the Rapid Response Team has been discussed. Patient/Family are encouraged to report perceived risks to care and to ask questions if they do not understand what they are told or what they should do.
[2022-09-09] MEDS: HYDROmorphone HCL INJ (*CRX) 1 MG/ML SYR 0.5 MG IV PUSH (23:52)
[2022-09-09] MEDS: LORazepam INJ (*CRX) 2 MG/ML VIAL 0.5 MG IV PUSH (23:53)
[2022-09-09 23:57] LABS: Basophils Percent Auto 0.3 % (0.2-1.2); Eosinophils Percent Auto 0.3 % (0-4.4); Hematocrit 36.9 % (37.0-47.0); Hemoglobin 12.1 g/dL (12.0-15.0); Immature Granulocyte Absolute 0.03 K/mm3 (0.00-0.031); Immature Granulocyte Percent A 0.3 % (0-0.5); Lymphocytes Absolute Auto 2.13 K/mm3 (0.9-3.2); Lymphocytes Percent Auto 17.8 % (18.3-44.2); Mean Corpuscular HGB Conc 32.8 g/dl (32-36); Mean Corpuscular Hemoglobin 30.4 pg (26-34); Mean Corpuscular Volume 92.7 fl (80-100); Mean Platelet Volume 9.7 fl (7.4-10.4); Monocytes Absolute Auto 0.9 K/mm3 (0.1-0.6); Monocytes Percent Auto 7.6 % (2.6-8.5); Neutrophils Absolute Auto 8.9 K/mm3 (1.3-6.7); Neutrophils Percent Auto 73.7 % (45.5-73.1); Platelet Count Result 423 k/mm3 (150-375); Red Blood Count 3.98 M/mm3 (4.2-5.4); Red Cell Distribution Width 12.5 % (11.5-14.5)
[2022-09-10 00:03] LABS: Lactic Acid Reflex 1.5 mmol/L (0.7-2.0)
[2022-09-10 00:23] VITALS: BP 170/80; PULSE 77; RESP 18; TEMP 36.6; O2SAT 97
[2022-09-10 01:00] LABS: Glucose Point of Care 86 mg/dl (65-105)
[2022-09-10 05:26] LABS: Glucose Point of Care 128 mg/dl (65-105)
[2022-09-10] MEDS: DEXTROSE 5%/0.45% SOD CHL 1,000 ML 150 ML IV CONT (05:29)
--- NOTE | 2022-09-10 05:33 | PM.IMHP ---
H&P: HPI History of Present Illness Date/Time: 09/10/22 05:33 Chief Complaint: Diarrhea and abdominal pain Narrative: 37-year-old female with a past medical history of schizophrenia, depression, insulin-dependent diabetes mellitus left great toe diabetic foot ulcer and recent antibiotic use who presented to the ER with diarrhea for 1 week. The patient reported that she started having diarrhea just before she was discharged from the hospital. She has been having 3-4 loose stools a day. She has been having some central abdominal pain that is worse just before she has to have a bowel movement that started on the . She tells me that the pain is 8/10 in intensity when I palpate her abdomen. However the patient pleasant and conversational as I am palpating her abdomen in no distress. She has not been having any fevers or chills. She did have 1 episode of vomiting prior to coming to the ER. The emesis was nonbilious and nonbloody. She reports that the stools are frankly watery and brown. When she had her episode of emesis and that the new pain she and her mother was concerned that maybe the patient had C diff and brought her into the ER for evaluation. She has been on cefdinir and doxycycline since discharge. He is postop follow-up with Podiatry as outpatient regarding her foot. She reports a small amount of drainage from the toe but no increased pain or fever. In the ER the patient was noted to be significantly hypoglycemic. Patient still had her insulin pump in place. The insulin pump was removed when she arrived to the medical floor. However, she was initially resistant to having her insulin pump removed. But the patient did not know how to suspend her pump. Given her learning disability and the fact that she did not understand the importance of stopping her insulin while hypoglycemic without it was and best interest to remove the patient's insulin pump. In the ER she received have amp dextrose with improvement in her glucose. At the time of my evaluation the patient reports that she is feeling as if she constantly needs to go to the bathroom and have a bowel movement. She states she thinks she will feel better if she could just pass stool. She has not had a bowel movement since she got up to the medical floor. Review of Systems Review of Systems: 12 systems were reviewed with pertinent positives and negatives per HPI. Except as documented in the HPI, all other systems were reviewed and are negative. PMFSH Past Medical History Medical History Adenoiditis Anemia Anxiety Back pain Body mass index (BMI) greater than 40 (12/18/17) Depression Diabetes mellitus type 1.5, managed as type 1 Essential hypertension History of deviated nasal septum Hyperlipidemia Hypertension Hypertrophy of both inferior nasal turbinates Insulin pump in place Other chronic pain Schizophrenia Thrombocytosis Surgical History Surgical History H/O excision of mass exc rt forearm subcutaneous mass x 2 05/22/21 H/O excision of mass Excision of subQ mass left thigh mass on 11/21/21. H/O tubal ligation BL History of back surgery X5 History of laparoscopic cholecystectomy (~2019) Family History Family History Father Diabetes mellitus Mother Diabetes mellitus Cerebrovascular accident Hypertension Grandparent Diabetes mellitus Other Kidney disease Skin cancer Social History Social History (Updated 09/10/22 @ 09:18 by Radha Reis DO) Social History: She lives at home with her boyfriend. She is a 16-year-old daughter. Her mother also lives in the same house. Patient is on disability due to schizophrenia and learning impairment. She reported that she smoked a pack of cigarettes per day for a couple of years but quit in her early 20s. She denies any significant
[2022-09-10 06:00] VITALS: BP 142/73; PULSE 85; RESP 16; TEMP 36.3; O2SAT 98
--- NOTE | 2022-09-10 06:23 | WPDGICN ---
Assessment and Plan Assessment and plan (1) Diarrhea: Qualifiers: Diarrhea type: unspecified type Qualified Code(s): R19.7 - Diarrhea, unspecified Code(s): R19.7 - Diarrhea, unspecified Status: Acute Assessment and Plan: as noted above, this began about a week ago, after having been discharged following antibiotic treatment for a diabetic foot ulcer. (2) Diabetic foot ulcer: Qualifiers: Diabetes mellitus type: type 1 Diabetic foot ulcer location: toe Laterality: left Non-pressure ulcer stage: with fat layer exposed Qualified Code(s): E10.621 - Type 1 diabetes mellitus with foot ulcer; L97.522 - Non-pressure chronic ulcer of other part of left foot with fat layer exposed Code(s): E11.621 - Type 2 diabetes mellitus with foot ulcer; L97.509 - Non-pressure chronic ulcer of other part of unspecified foot with unspecified severity Status: Acute Assessment and Plan: She was treated for this j And was just discharged 2 days before this admission. (3) Diabetes mellitus type 1.5, managed as type 1: Code(s): E13.9 - Other specified diabetes mellitus without complications Status: Acute Assessment and Plan: She has been insulin dependent for many years. (4) Abnormal CT scan, gastrointestinal tract: Code(s): R93.3 - Abnormal findings on diagnostic imaging of other parts of digestive tract Status: Acute Assessment and Plan: Imaging shows a persistent area of narrowing near the splenic flexure suggestive of possible mass. I told her that eventually she will need a colonoscopy. We would 1st like to determine whether not she has C diff and begin treatment for that if necessary GI Consult Note Consult date/time: 09/10/22 06:23 HPI: Elise Luevano is a 37 year old female with insulin-dependent diabetes presented to the emergency room last night with diarrhea. She had been just recently discharged after treatment for infected foot ulcer requiring antibiotics. Shortly afterwards she began having diarrhea with multiple bowel movements per day. She is not seen any blood her stools. She has not had a fever. She has some mild pain in the mid abdomen which is constant. a little over 2 years ago I had seen her for diarrhea that had been going on for several months. A colonoscopy was done which was negative including biopsies taken for microscopic colitis. She had not followed up. We had intended to give her trial of amitriptyline for her irritable bowel and visceral hypersensitivity but could not reach her. At any rate, she says that her bowel movements had returned to normal with 1 or at most 2 stools per day until about a week ago. CT scan done emergency room shows: There is an air-fluid levels in the cecum, ascending colon and transverse colon. At the distal transverse colon near the splenic flexure there may be a soft tissue constricting mass of the colon. The colon is decompressed beyond this point, without dilatation or fluid levels. Colonoscopy or barium enema workup are recommended to exclude adenocarcinoma of the colon. No suspicious osteolytic or osteoblastic lesions are noted. Review of Systems Review of Systems: All systems reviewed & are unremarkable except as noted in HPI and below PMFSH Past Medical History Medical History Adenoiditis Anemia Anxiety Back pain Body mass index (BMI) greater than 40 (12/18/17) Depression Diabetes mellitus type 1.5, managed as type 1 Essential hypertension History of deviated nasal septum Hyperlipidemia Hypertension Hypertrophy of both inferior nasal turbinates Insulin pump in place Other chronic pain Schizophrenia Thrombocytosis Surgical History Surgical History H/O excision of mass exc rt forearm subcutaneous mass x 2 05/22/21 H/O excision of mass Excision of subQ mass
[2022-09-10 06:35] LABS: Hematocrit 34.2 % (37.0-47.0); Hemoglobin 10.8 g/dL (12.0-15.0); Mean Corpuscular HGB Conc 31.6 g/dl (32-36); Mean Corpuscular Hemoglobin 29.7 pg (26-34); Platelet Count Result 353 k/mm3 (150-375); Red Blood Count 3.64 M/mm3 (4.2-5.4); Red Cell Distribution Width 12.5 % (11.5-14.5); White Blood Count 9.7 K/mm3 (4.5-10.0)
[2022-09-10 06:45] LABS: Alanine Aminotransferase 34 U/L (6-35); Albumin Level 3.5 g/dL (3.5-5.1); Alkaline Phosphatase 74 U/L (38-126); Anion Gap 7 mmol/L (8-16); Aspartate Amino Transferase 37 U/L (14-36); Bilirubin,Total 0.5 mg/dL (0.2-1.3); Blood Urea Nitrogen 7 mg/dL (7-17); Calcium 8.2 mg/dL (8.4-10.2); Carbon Dioxide 28 mmol/L (22-30); Chloride 103 mmol/L (98-107); Estimated CRCL calculation 110 ml/min; Estimated Glomerular Filt Rate > 60; Glucose 140 mg/dL (65-110); Potassium 3.5 mmol/L (3.4-5.0); Sodium 138 mmol/L (137-145)
[2022-09-10] MEDS: SIMVASTATIN 20 MG TABLET 40 MG BY MOUTH (10:57)
[2022-09-10] MEDS: PROPRANOLOL HCL 20 MG TABLET PO ×2 (10:57→20:50)
[2022-09-10] MEDS: FLUoxetine HCL 20 MG CAPSULE 40 MG PO (10:57)
[2022-09-10] MEDS: cloNIDine HCL 0.1 MG TABLET PO (10:57)
[2022-09-10] MEDS: lamoTRIgine 100 MG TABLET PO (10:58)
[2022-09-10] MEDS: DOXYCYCLINE HYCLATE 100 MG TABLET PO (10:58)
[2022-09-10] MEDS: lisinopriL 5 MG TABLET PO (10:58)
[2022-09-10] MEDS: SILVERGEL (ELTA) 45 ML 1 APPLIC TOPICAL (10:58)
[2022-09-10] MEDS: CEFDINIR 300 MG CAPSULE PO ×2 (10:58→20:50)
[2022-09-10 11:47] LABS: Glucose Point of Care 174 mg/dl (65-105)
--- NOTE | 2022-09-10 11:48 | PC.NURSE ---
POC BGL 09/10/22 at 1143 resulted 174, PT's personal CGM at 1143 resulting 226. Reported to provider, Susan.
--- NOTE | 2022-09-10 12:01 | PM.IMPN ---
Progress Note: A&P Assessment and Plan (1) Large bowel obstruction: Code(s): K56.609 - Unspecified intestinal obstruction, unspecified as to partial versus complete obstruction Status: Acute Assessment and Plan: The patient has an abnormal CT scan that is suspicious for mass that is causing a bowel obstruction. Gastroenterology has been consulted. Compliance Auditor recommended holding off on surgical consultation until after patient received colonoscopy. Will defer to the warp drawer whether not to start antibiotic therapy for the patient's diarrhea. Patient's abdominal pain improved with IV fluids. Will start patient on full liquid diet and discontinue IV fluids at this time. Will continue Dilaudid as needed for pain 0.5 mg. (2) Diarrhea: Qualifiers: Diarrhea type: unspecified type Qualified Code(s): R19.7 - Diarrhea, unspecified Code(s): R19.7 - Diarrhea, unspecified Status: Acute Assessment and Plan: Patient no longer having frequent bowel movements. Stool studies were ordered and awaiting rule out of C diff for further investigate abnormal CT findings. (3) Abnormal CT scan, gastrointestinal tract: Code(s): R93.3 - Abnormal findings on diagnostic imaging of other parts of digestive tract Status: Acute Assessment and Plan: The patient has an abnormal CT scan that is suspicious for mass that is causing a bowel obstruction. Gastroenterology has been consulted. (4) Diabetes mellitus with hypoglycemia and coma, with long-term current use of insulin: Qualifiers: Diabetes mellitus type: other specified (including LORNE) Qualified Code(s): E13.641 - Other specified diabetes mellitus with hypoglycemia with coma; Z79.4 - MCFP (current) use of insulin Code(s): E11.641 - Type 2 diabetes mellitus with hypoglycemia with coma; Z79.4 - rodent exterminator (current) use of insulin Status: Acute Assessment and Plan: The patient still had her insulin pump in place in the ER. It was likely are decreased oral intake and continued insulin infusion that likely resulted in her having hypoglycemia. The patient is wearing her continuous glucose monitor which may remain in place. Will continue half normal saline at 150 mL an hour. Will check Accu-Cheks achs. Hypoglycemia protocol in place. Moderate-dose sliding scale insulin Insulin pump and glucometer at the hospital with different reads. Going to possibly interrogate her insulin pump. (5) Diabetic foot ulcer: Qualifiers: Diabetes mellitus type: type 1 Diabetic foot ulcer location: toe Laterality: left Non-pressure ulcer stage: with fat layer exposed Qualified Code(s): E10.621 - Type 1 diabetes mellitus with foot ulcer; L97.522 - Non-pressure chronic ulcer of other part of left foot with fat layer exposed Code(s): E11.621 - Type 2 diabetes mellitus with foot ulcer; L97.509 - Non-pressure chronic ulcer of other part of unspecified foot with unspecified severity Status: Acute Assessment and Plan: I will continue patient's home cefdinir and doxycycline for her diabetic foot wound. She should theoretically should receive 11 more days antibiotic therapy for her foot wound. Will provide localized wound care per home regimen. (6) Schizophrenia: Qualifiers: Schizophrenia type: unspecified Qualified Code(s): F20.9 - Schizophrenia, unspecified Code(s): F20.9 - Schizophrenia, unspecified Status: Acute Assessment and Plan: Will continue patient's home psychiatric medications. Plan Patient has been admitted as observation status. Subjective Date/time seen: 09/10/22 12:01 Interval history: Patient continues to have epigastric pain but this is improved since arrival to the hospital. She has been transitioned off IV fluids and on to a clear liquid diet. Will need stool s
[2022-09-10 13:30] VITALS: BMI 44.7
[2022-09-10 14:25] VITALS: BP 133/111; PULSE 82; RESP 16; TEMP 36.4; O2SAT 97
[2022-09-10 15:55] LABS: Toxigenic C. Diff NEGATIVE (NEGATIVE)
[2022-09-10] MEDS: polyethylene glycoL 3350 238 GM BOTTLE PO (16:41)
[2022-09-10 17:00] LABS: Glucose Point of Care 127 mg/dl (65-105)
[2022-09-10] MEDS: MORPHINE SULFATE (*CRX) 2 MG/ML INJ IV PUSH (17:40)
--- NOTE | 2022-09-10 17:48 | PC.NURSE ---
PT started bowel prep 1600, at 1749 PT has finished approximately half of the miralax.
[2022-09-10 18:37] LABS: Glucose Point of Care 184 mg/dl (65-105)
[2022-09-10 20:00] VITALS: PULSE 77; RESP 16; O2SAT 98
[2022-09-10 20:48] VITALS: BP 144/81; PULSE 77; RESP 16; TEMP 36.1; O2SAT 98
[2022-09-10] MEDS: OLANZapine 5 MG TABLET 20 MG PO (20:50)
[2022-09-10 21:36] LABS: Glucose Point of Care 209 mg/dl (65-105)
[2022-09-11] VITALS (9 sets, daily range): BP systolic 113–140; BP diastolic 67–79; PULSE 67–92; RESP 16–18; TEMP 36.4–36.7; O2SAT 97–100
[2022-09-11 06:04] LABS: Hematocrit 34.6 % (37.0-47.0); Hemoglobin 10.9 g/dL (12.0-15.0); Mean Corpuscular HGB Conc 31.5 g/dl (32-36); Mean Corpuscular Hemoglobin 29.5 pg (26-34); Mean Corpuscular Volume 93.5 fl (80-100); Mean Platelet Volume 9.7 fl (7.4-10.4); Platelet Count Result 367 k/mm3 (150-375); Red Cell Distribution Width 12.4 % (11.5-14.5); White Blood Count 9.5 K/mm3 (4.5-10.0)
[2022-09-11 06:11] LABS: Alanine Aminotransferase 28 U/L (6-35); Albumin Level 3.5 g/dL (3.5-5.1); Alkaline Phosphatase 71 U/L (38-126); Anion Gap 5 mmol/L (8-16); Aspartate Amino Transferase 25 U/L (14-36); Bilirubin,Total 0.4 mg/dL (0.2-1.3); Blood Urea Nitrogen 5 mg/dL (7-17); Calcium 8.5 mg/dL (8.4-10.2); Carbon Dioxide 29 mmol/L (22-30); Chloride 103 mmol/L (98-107); Estimated CRCL calculation 110 ml/min; Estimated Glomerular Filt Rate > 60; Glucose 149 mg/dL (65-110); Sodium 137 mmol/L (137-145)
[2022-09-11 08:24] LABS: Glucose Point of Care 148 mg/dl (65-105)
[2022-09-11] MEDS: cloNIDine HCL 0.1 MG TABLET PO (09:08)
[2022-09-11] MEDS: PROPRANOLOL HCL 20 MG TABLET PO (09:09)
[2022-09-11] MEDS: SIMVASTATIN 20 MG TABLET 40 MG BY MOUTH (09:10)
[2022-09-11] MEDS: FLUoxetine HCL 20 MG CAPSULE 40 MG PO (09:10)
[2022-09-11] MEDS: lamoTRIgine 100 MG TABLET PO (09:10)
[2022-09-11] MEDS: DOXYCYCLINE HYCLATE 100 MG TABLET PO (09:10)
[2022-09-11] MEDS: SILVERGEL (ELTA) 45 ML 1 APPLIC TOPICAL (09:11)
[2022-09-11] MEDS: CEFDINIR 300 MG CAPSULE PO (09:11)
[2022-09-11] MEDS: LACTATED RINGERS 1,000 ML 150 ML IV CONT (11:50)
[2022-09-11 11:51] LABS: Glucose Point of Care 190 mg/dl (65-105)
--- NOTE | 2022-09-11 11:56 | WPDANESEPPF ---
Anes - Initial Pre Proc Eval Procedure: Operation Date: 09/11/22 12:00 Proposed Procedures p Colonoscopy - Ozzie Howe MD Date/Time: 09/11/22 11:56 Surgeon: Radha Reis DO Pre Op Diagnosis: Diarrhea, LBO, Constricting Colon Mass Patient Data Age: 37 Gender: F Height: 1.65 m Weight: 122 kg Last Vital Signs Temp 97.5 F L 09/11/22 11:48 Pulse 81 09/11/22 11:48 Resp 18 09/11/22 11:48 BP 134/68 09/11/22 11:48 Pulse Ox 98 09/11/22 11:48 O2 Del Method Room Air 09/11/22 11:48 Allergies Allergy/AdvReac Type Severity Reaction Status Date / Time Penicillins AdvReac Unknown swelling Verified 09/11/22 11:48 Home Medications Medication Instructions Recorded Confirmed Type propranolol 20 mg tablet 20 mg PO Q12H 10/25/20 09/10/22 History lamotrigine 100 mg tablet 100 mg PO DAILY 05/11/21 09/10/22 History lisinopril 5 mg tablet 5 mg PO DAILY #90 tabs 04/10/22 09/10/22 Rx fluoxetine 40 mg capsule 40 mg PO DAILY 05/23/22 09/10/22 History olanzapine 15 mg tablet 20 mg PO QHS 05/23/22 09/10/22 History dulaglutide 1.5 mg/0.5 mL 1.5 mg (0.5 mL) subcut WEEKLY #6 mL 07/09/22 09/10/22 Rx subcutaneous pen injector (Trulicity) clonidine HCl 0.1 mg tablet 0.1 mg PO DAILY 09/04/22 09/10/22 History ibuprofen 800 mg tablet 800 mg PO Q6H PRN Pain 09/04/22 09/10/22 History cefdinir 300 mg capsule 300 mg PO Q12H #15 caps 09/06/22 09/10/22 Rx doxycycline hyclate 100 mg capsule 100 mg PO DAILY #15 caps 09/06/22 09/10/22 Rx silver 200 mcg/gram topical gel 1 applic topical DAILY #90 grams 09/07/22 09/10/22 Rx insulin lispro 100 unit/mL 1.6 unit subcut Q1-2H 07/24/23 07/24/23 History subcutaneous solution simvastatin 40 mg tablet (Zocor) 40 mg DAILY 09/10/22 09/10/22 History Laboratory Tests 09/10/22 09/10/22 09/10/22 14:48 16:52 18:34 WBC RBC Hgb Hct MCV MCH MCHC RDW Plt Count MPV Sodium Potassium Chloride Carbon Dioxide Anion Gap BUN Creatinine Estim Creat Clear Calc Estimated GFR Glucose POC Capillary Glucose 127 H mg/dl 184 H mg/dl (65-105) (65-105) Calcium Total Bilirubin AST ALT Alkaline Phosphatase Total Protein Albumin C. difficile (PCR) Negative (NEGATIVE) 09/10/22 09/11/22 09/11/22 20:55 05:46 08:10 WBC 9.5 K/mm3 (4.5-10.0) RBC 3.70 L M/mm3 (4.2-5.4) Hgb 10.9 L g/dL (12.0-15.0) Hct 34.6 L % (37.0-47.0) MCV 93.5 fl (80-100) MCH 29.5 pg (26-34) MCHC 31.5 L g/dl (32-36) RDW 12.4 % (11.5-14.5) Plt Count 367 k/mm3 (150-375) MPV 9.7 fl (7.4-10.4) Sodium 137 mmol/L (137-145) Potassium 4.0 mmol/L (3.4-5.0) Chloride 103 mmol/L (98-107) Carbon Dioxide 29 mmol/L (22-30) Anion Gap 5 L mmol/L (8-16) BUN 5 L mg/dL (7-17) Creatinine 0.80 mg/dL (0.7-1.0) Estim Creat Clear Calc 110 ml/min Estimated GFR > 60 (59 - ) Glucose 149 H mg/dL (65-110) POC Capillary Glucose 209 H mg/dl 148 H mg/dl (65-105) (65-105) Calcium 8.5 mg/dL (8.4-10.2) Total Bilirubin 0.4 mg/dL (0.2-1.3) AST 25 U/L (14-36) ALT 28 U/L (6-35) Alkaline Phosphatase 71 U/L (38-126) Total Protein 7.0 g/dL (6.3-8.2) Albumin 3.5 g/dL (3.5-5.1) C. difficile (PCR) 09/11/22 11:43 WBC RBC Hgb Hct MCV MCH MCHC RDW Plt Count MPV Sodium Potassium Chlorid
--- NOTE | 2022-09-11 12:10 | PM.IMPN ---
Progress Note: A&P Assessment and Plan (1) Large bowel obstruction: Code(s): K56.609 - Unspecified intestinal obstruction, unspecified as to partial versus complete obstruction Status: Acute Assessment and Plan: The patient has an abnormal CT scan that is suspicious for mass that is causing a bowel obstruction. Gastroenterology has been consulted. Overlock Collar Setter recommended holding off on surgical consultation until after patient received colonoscopy. Will defer to the open tenter operator whether not to start antibiotic therapy for the patient's diarrhea. Patient's abdominal pain improved with IV fluids. Will start patient on full liquid diet and discontinue IV fluids at this time. Will continue Dilaudid as needed for pain 0.5 mg. Colonoscopy planned for 09/11/2022 (2) Diarrhea: Qualifiers: Diarrhea type: unspecified type Qualified Code(s): R19.7 - Diarrhea, unspecified Code(s): R19.7 - Diarrhea, unspecified Status: Acute Assessment and Plan: C diff negative. Patient underwent bowel prep and having colonoscopy on 09/11/2022. (3) Abnormal CT scan, gastrointestinal tract: Code(s): R93.3 - Abnormal findings on diagnostic imaging of other parts of digestive tract Status: Acute Assessment and Plan: The patient has an abnormal CT scan that is suspicious for mass that is causing a bowel obstruction. Gastroenterology has been consulted. (4) Diabetes mellitus with hypoglycemia and coma, with long-term current use of insulin: Qualifiers: Diabetes mellitus type: other specified (including LORNE) Qualified Code(s): E13.641 - Other specified diabetes mellitus with hypoglycemia with coma; Z79.4 - terminal gauger supervisor (current) use of insulin Code(s): E11.641 - Type 2 diabetes mellitus with hypoglycemia with coma; Z79.4 - terminal gauger supervisor (current) use of insulin Status: Acute Assessment and Plan: The patient still had her insulin pump in place in the ER. It was likely are decreased oral intake and continued insulin infusion that likely resulted in her having hypoglycemia. The patient is wearing her continuous glucose monitor which may remain in place. Will continue half normal saline at 150 mL an hour. Will check Accu-Cheks achs. Hypoglycemia protocol in place. Moderate-dose sliding scale insulin Insulin pump and glucometer at the hospital with different reads. Going to possibly interrogate her insulin pump. (5) Diabetic foot ulcer: Qualifiers: Diabetes mellitus type: type 1 Diabetic foot ulcer location: toe Laterality: left Non-pressure ulcer stage: with fat layer exposed Qualified Code(s): E10.621 - Type 1 diabetes mellitus with foot ulcer; L97.522 - Non-pressure chronic ulcer of other part of left foot with fat layer exposed Code(s): E11.621 - Type 2 diabetes mellitus with foot ulcer; L97.509 - Non-pressure chronic ulcer of other part of unspecified foot with unspecified severity Status: Acute Assessment and Plan: I will continue patient's home cefdinir and doxycycline for her diabetic foot wound. She should theoretically should receive 11 more days antibiotic therapy for her foot wound. Will provide localized wound care per home regimen. (6) Schizophrenia: Qualifiers: Schizophrenia type: unspecified Qualified Code(s): F20.9 - Schizophrenia, unspecified Code(s): F20.9 - Schizophrenia, unspecified Status: Acute Assessment and Plan: Will continue patient's home psychiatric medications. Plan Patient has been admitted as observation status. Subjective Date/time seen: 09/11/22 12:10 Interval history: Patient doing well today and states that her abdominal pain has subsided. Colonoscopy planned for this afternoon in due to prep she has been having continuous diarrhea. Her C diff was negative. She has no nausea, vo
[2022-09-11 13:34] LABS: Glucose Point of Care 163 mg/dl (65-105)
--- NOTE | 2022-09-11 16:30 | PM.DS ---
DS: Admitting Diagnosis Discharge Date 09/11/22 Admitting Diagnosis Diarrhea, abdominal pain DS: Discharge Diagnosis Discharge Diagnosis (1) Large bowel obstruction: Code(s): K56.609 - Unspecified intestinal obstruction, unspecified as to partial versus complete obstruction Status: Acute Assessment and Plan: The patient has an abnormal CT scan that is suspicious for mass that is causing a bowel obstruction. Gastroenterology has been consulted. Hop Separator recommended holding off on surgical consultation until after patient received colonoscopy. Will defer to the fiberglass boat maker whether not to start antibiotic therapy for the patient's diarrhea. Patient's abdominal pain improved with IV fluids. Will start patient on full liquid diet and discontinue IV fluids at this time. Will continue Dilaudid as needed for pain 0.5 mg. Colonoscopy planned for 09/11/2022 (2) Diarrhea: Qualifiers: Diarrhea type: unspecified type Qualified Code(s): R19.7 - Diarrhea, unspecified Code(s): R19.7 - Diarrhea, unspecified Status: Acute Assessment and Plan: C diff negative. Patient underwent bowel prep and having colonoscopy on 09/11/2022. (3) Abnormal CT scan, gastrointestinal tract: Code(s): R93.3 - Abnormal findings on diagnostic imaging of other parts of digestive tract Status: Acute Assessment and Plan: The patient has an abnormal CT scan that is suspicious for mass that is causing a bowel obstruction. Gastroenterology has been consulted. (4) Diabetes mellitus with hypoglycemia and coma, with long-term current use of insulin: Qualifiers: Diabetes mellitus type: other specified (including LORNE) Qualified Code(s): E13.641 - Other specified diabetes mellitus with hypoglycemia with coma; Z79.4 - FDC (current) use of insulin Code(s): E11.641 - Type 2 diabetes mellitus with hypoglycemia with coma; Z79.4 - terminal operations manager (current) use of insulin Status: Acute Assessment and Plan: The patient still had her insulin pump in place in the ER. It was likely are decreased oral intake and continued insulin infusion that likely resulted in her having hypoglycemia. The patient is wearing her continuous glucose monitor which may remain in place. Will continue half normal saline at 150 mL an hour. Will check Accu-Cheks achs. Hypoglycemia protocol in place. Moderate-dose sliding scale insulin Insulin pump and glucometer at the hospital with different reads. Going to possibly interrogate her insulin pump. (5) Diabetic foot ulcer: Qualifiers: Diabetes mellitus type: type 1 Diabetic foot ulcer location: toe Laterality: left Non-pressure ulcer stage: with fat layer exposed Qualified Code(s): E10.621 - Type 1 diabetes mellitus with foot ulcer; L97.522 - Non-pressure chronic ulcer of other part of left foot with fat layer exposed Code(s): E11.621 - Type 2 diabetes mellitus with foot ulcer; L97.509 - Non-pressure chronic ulcer of other part of unspecified foot with unspecified severity Status: Acute Assessment and Plan: I will continue patient's home cefdinir and doxycycline for her diabetic foot wound. She should theoretically should receive 11 more days antibiotic therapy for her foot wound. Will provide localized wound care per home regimen. (6) Schizophrenia: Qualifiers: Schizophrenia type: unspecified Qualified Code(s): F20.9 - Schizophrenia, unspecified Code(s): F20.9 - Schizophrenia, unspecified Status: Acute Assessment and Plan: Will continue patient's home psychiatric medications. Plan Patient has been admitted as observation status. DS: Summary Hospital Course Hospital Course: This is a 37-year-old female with past medical history of schizophrenia, depression, diabetes with a left great toe diabetic foot
[2022-09-11 16:47] LABS: Glucose Point of Care 207 mg/dl (65-105)
[2022-09-11] MEDS: INSULIN ASPART (*BKC) 100 UNITS/ML SUB-Q (17:11)
--- NOTE | 2022-09-12 07:21 | WPDANESPN ---
Anes - Prog Note Post-Op Date/Time: 09/12/22 07:21 Cardiovascular status: normal Respiratory status: normal Airway patency: baseline Mental status: baseline Post-Op hydration status: normal Vital Signs: Last Vital Signs Temp 97.6 F 09/11/22 14:55 Pulse 82 09/11/22 14:55 Resp 16 09/11/22 14:55 BP 140/74 09/11/22 14:55 Pulse Ox 100 09/11/22 14:55 O2 Del Method Room Air 09/11/22 12:55 Pain Score (VAS): 0/10 I/O: Intake & Output 09/11/22 09/11/22 09/12/22 15:59 23:59 07:59 Intake Total 270 590 Balance 270 590 Laboratory Tests 09/11/22 05:46 09/11/22 05:46 09/11/22 09/11/22 09/11/22 08:10 11:43 13:19 POC Capillary Glucose 148 H 190 H 163 H 09/11/22 16:40 POC Capillary Glucose 207 H Microbiology 09/09/22 18:45 Urine Clean Catch Urine Culture - Final 09/10/22 14:48 Stool Escherichia coli Shiga Toxins - Final 09/10/22 14:48 Stool Campylobacter Antigen Assay - Final Post-procedural complaints: none Patient Feedback: Patient satisfied with anesthetic care.
== END 2022-09-11 18:10 | disposition home or self-care (01) ==
LOC: ANHED 18:28 → ANH3MEDSUR 23:12
PROVIDERS: Internal Medicine Critical Care Medicine; Internal Medicine Gastroenterology; Admitting Provider Internal Medicine; Emergency Provider Physician Assistant; PCP Internal Medicine; Visit Provider Family Medicine
PROC: 0DJD8ZZ Inspection of Lower Intestinal Tract, Via Natural or Artificial Opening Endoscopic (ICD-10-PCS; CPT 45378; principal; 2022-09-11 12:00)
DX: K52.9 Noninfective gastroenteritis and colitis, unspecified (principal); A04.72 Enterocolitis due to Clostridium difficile, not specified as recurrent; R93.3 Abnormal findings on diagnostic imaging of other parts of digestive tract; E10.649 Type 1 diabetes mellitus with hypoglycemia without coma; E10.621 Type 1 diabetes mellitus with foot ulcer; L97.522 Non-pressure chronic ulcer of other part of left foot with fat layer exposed; Z96.41 Presence of insulin pump (external) (internal); F20.9 Schizophrenia, unspecified; F32.A Depression, unspecified; M54.9 Dorsalgia, unspecified; I10 Essential (primary) hypertension; E78.5 Hyperlipidemia, unspecified; E66.01 Morbid (severe) obesity due to excess calories; Z68.41 Body mass index [BMI] 40.0-44.9, adult; F12.90 Cannabis use, unspecified, uncomplicated; Z87.891 Personal history of nicotine dependence; Z79.1 Long term (current) use of non-steroidal anti-inflammatories (NSAID); Z79.4 Long term (current) use of insulin; Z79.85 Long-term (current) use of injectable non-insulin antidiabetic drugs; Z79.899 Other long term (current) drug therapy; Z83.3 Family history of diabetes mellitus; Z82.49 Family history of ischemic heart disease and other diseases of the circulatory system
CPT/HCPCS: 45380; 36415; 74177; 80053; 81001; 82948; 83605; 83690; 85025; 85027; 87045; 87086; 87427; 87493; 88305; 96361; 96374; 96375; 99285; A9270; G0378; G0379; J1170; J1815; J2060; J2270; J2405; J2704; J7030; J7120; Q9967

== ENCOUNTER 2022-10-31 10:45 | Outpatient (RCR) | payer OTHER, SELFPAY ==
[2022-10-03 13:30] VITALS: BMI 44.4
[2022-10-03 13:35] VITALS: BMI 44.4
[2022-10-31 10:45] VITALS: BMI 43.2
[2022-10-31 10:51] VITALS: BMI 43.2
== END 2022-10-31 16:23 | disposition home or self-care (01) ==
LOC: ANHDMC 10:45
PROVIDERS: PCP Internal Medicine; Visit Provider Internal Medicine
DX: E10.9 Type 1 diabetes mellitus without complications (principal); Z71.3 Dietary counseling and surveillance
CPT/HCPCS: 97802; 97803

== ENCOUNTER 2022-11-13 14:15 | Outpatient (RCR) | payer OTHER, SELFPAY | END 2022-11-16 12:41 | disposition home or self-care (01) | LOC: ANHDMC 14:15 | PROVIDERS: PCP Internal Medicine; Visit Provider Internal Medicine | DX: E10.65 Type 1 diabetes mellitus with hyperglycemia (principal); E10.649 Type 1 diabetes mellitus with hypoglycemia without coma; Z71.89 Other specified counseling | CPT/HCPCS: G0108 ==

== ENCOUNTER 2023-02-26 14:19 | Outpatient (CLI) | payer OTHER, SELFPAY ==
[2023-02-26 16:47] LABS: Cholesterol 179 mg/dL (0-200); HDL Direct 42 mg/dL; Triglycerides 82 mg/dL (<150)
[2023-02-26 16:59] LABS: LDL Cholesterol Direct 102 mg/dL
[2023-02-26 17:21] LABS: Creatinine Urine 87.2 mg/dL
[2023-02-26 17:26] LABS: MALB Creatinine Ratio 15.8 mg/g (0-30); Microalbumin Urine Random 13.8 mg/L (0-16.7)
[2023-02-26 17:31] LABS: Free T4 Free Thyroxine 1.16 ng/mL (0.78-2.19)
== END 2023-02-26 14:20 | disposition home or self-care (01) ==
LOC: ANHWCLAB 14:19
PROVIDERS: PCP Internal Medicine; Visit Provider Internal Medicine
DX: E10.9 Type 1 diabetes mellitus without complications (principal); L97.529 Non-pressure chronic ulcer of other part of left foot with unspecified severity
CPT/HCPCS: 36415; 80061; 82043; 84439; 84443

== ENCOUNTER 2023-04-30 13:03 | Outpatient (CLI) | payer OTHER, SELFPAY ==
[2023-04-30 18:44] LABS: Basophils Percent Auto 0.4 % (0.2-1.2); Eosinophils Absolute Auto 0.1 K/mm3 (0-0.3); Eosinophils Percent Auto 0.7 % (0-4.4); Hematocrit 39.7 % (37.0-47.0); Hemoglobin 12.4 g/dL (12.0-15.0); Immature Granulocyte Absolute 0.03 K/mm3 (0.00-0.031); Immature Granulocyte Percent A 0.4 % (0-0.5); Mean Corpuscular HGB Conc 31.2 g/dl (32-36); Mean Corpuscular Hemoglobin 30.1 pg (26-34); Mean Corpuscular Volume 96.4 fl (80-100); Mean Platelet Volume 10.6 fl (7.4-10.4); Monocytes Absolute Auto 0.6 K/mm3 (0.1-0.6); Neutrophils Absolute Auto 5.6 K/mm3 (1.3-6.7); Neutrophils Percent Auto 67.5 % (45.5-73.1); Platelet Count Result 406 k/mm3 (150-375); Red Blood Count 4.12 M/mm3 (4.2-5.4); Red Cell Distribution Width 11.8 % (11.5-14.5); White Blood Count 8.3 K/mm3 (4.5-10.0)
[2023-04-30 19:05] LABS: Alanine Aminotransferase 26 U/L (6-35); Albumin Level 3.8 g/dL (3.5-5.1); Alkaline Phosphatase 80 U/L (38-126); Anion Gap 5 mmol/L (8-16); Aspartate Amino Transferase 34 U/L (14-36); Bilirubin,Total 0.5 mg/dL (0.2-1.3); Blood Urea Nitrogen 13 mg/dL (7-17); Carbon Dioxide 28 mmol/L (22-30); Chloride 104 mmol/L (98-107); Estimated Glomerular Filt Rate > 60; Glucose 157 mg/dL (65-110); Potassium 4.3 mmol/L (3.4-5.0); Sodium 137 mmol/L (137-145)
[2023-04-30 20:03] LABS: Hemoglobin A1C 6.5 % (<5.7)
== END 2023-04-30 13:04 | disposition home or self-care (01) ==
LOC: ANHGOSHLAB 13:05
PROVIDERS: PCP Internal Medicine; Visit Provider Clinical Nurse Specialist
DX: E11.9 Type 2 diabetes mellitus without complications (principal)
CPT/HCPCS: 36415; 80053; 83036; 85025

== ENCOUNTER 2024-02-22 10:17 | Emergency (ER) | payer OTHER, SELFPAY ==
[2024-02-22 10:30] VITALS: BP 154/109; PULSE 118; RESP 20; TEMP 36.5; O2SAT 98
--- NOTE | 2024-02-22 17:26 | PC.NURSE ---
patient called for room assignment and repeat vital signs without answer from the waiting room .
--- OUTSIDE RECORDS SUMMARY | 2024-02-29 13:22 | XMS_ITS | Data Portability ---
Author Organization [facility] Stratus[employer] [facility], Main Office Address [address] [place] [address] Care Team Providers Care Media Intern Name Role Phone CHANTAL WHITE Primary Care Provider CHANTAL WHITE Referring Provider ALIREZA AGUILAR Primary Care Provider Assessment Encounter Date Assessment Date Assessment LastModified by Organization Details LastModified Time 07/09/2023 07/09/2023 This note is dictated and transcribed by [employer]. Software Intern variances may occur. Despite proofreading, typographical errors may occur. Occasional wrong-word or 'qkycg-p-qtrb' substitutions may have occurred due to the inherent limitations of voice recording. Read the chart carefully and recognize, using context, where substitutions have occurred. Not available 07/10/2023 09:52:13 07/23/2023 07/23/2023 This note is dictated and transcribed by [employer]. Software Intern variances may occur. Despite proofreading, typographical errors may occur. Occasional wrong-word or 'wadfv-g-azfo' substitutions may have occurred due to the inherent limitations of voice recording. Read the chart carefully and recognize, using context, where substitutions have occurred. Not available 07/23/2023 17:44:26 08/06/2023 08/06/2023 This note is dictated and transcribed by [employer]. Software Intern variances may occur. Despite proofreading, typographical errors may occur. Occasional wrong-word or 'tkjjf-j-dlme' substitutions may have occurred due to the inherent limitations of voice recording. Read the chart carefully and recognize, using context, where substitutions have occurred. Not available 08/08/2023 13:25:12 10/03/2023 10/03/2023 This note is dictated and transcribed by [employer]. Software Intern variances may occur. Despite proofreading, typographical errors may occur. Occasional wrong-word or 'mkzzj-g-kpah' substitutions may have occurred due to the inherent limitations of voice recording. Read the chart carefully and recognize, using context, where substitutions have occurred. [email or web address] Not available 10/03/2023 10:18:39 11/05/2023 11/05/2023 This note is dictated and transcribed by [employer]. Software Intern variances may occur. Despite proofreading, typographical errors may occur. Occasional wrong-word or 'pmrxo-s-llbj' substitutions may have occurred due to the inherent limitations of voice recording. Read the chart carefully and recognize, using context, where substitutions have occurred. [email or web address] Not available 11/05/2023 11:36:49 Plan of Treatment Reminders Order Date Submit Date Provider Last Modified By Organization Details Last Modified Time Details Appointments None recorded. Lab unlisted lab - CBC study [email or web address] (Lab), [address] [place], [address], 4 08:18:04 C-reactive protein, quantitativ e, serum or plasma [address] (Lab), [address] [place], [address], 4 08:18:04 erythrocyte sedimentati on rate, QN, blood [address] (Lab), [address] [place], [address], 4 08:18:04 Referral None recorded. Procedures None recorded. Surgeries None recorded. Imaging XR, foot, 3 or more view 2023 [email or web address] [facility] [place], [facility], [address], [place], [address], 4 14:18:57 XR, foot, 3 or more view - podiatry read 2023 024 [email or web address] [facility] ([facility] Sched[facility]), [address] [place], [address], 4 09:27:28 XR, foot, 3 or more view 2023 024 [email or web address] [facility] [place], [address], [address], [place], [address], 4 13:33:10 XR, foot, 3 or more view 2023 024 [email or web address] [facility] ([facility] Scheduling), [address] [place], [address], 4 08:34:13 XR, foot, 3 or more view 2023 024 [email or web address] [facility] [place], [address], [address], [place], [address], 4 13:29:48 XR, foot, 3 or more view 2023 024 [email or web address] [facility] [place], [address], [address], [place], [address], 4 10:19:11 XR, foot, 3 or more view 2023 024 [email or web address] [facility] [place], [address], [address], [place], [address], 4 11:38:44 Medication Orders None recorded. Patient TargetsNo targets recorded. Patient InstructionsNo instructions recorded. Reason for Referral None Reported. Results Created Date Observation Date Name Description Value Unit Range Abnormal Flag Note LastModifiedBy Organization Detail LastModifiedTime 07/24/19 24 07/24/2023 CBC W/O DIFFE RENTI AL white blood cells 9.4 x10'3 /uL 4.2-10 .8 Not Available [facility] (Lab) [address] [place], [address], 07/24/2023 14:46:08 07/24/19 24 07/24/2023 CBC W/O DIFFE RENTI AL red blood cells 4.01 x10'6 /uL 3.80-5 .20 Not Available [facility] (Lab) [address] [place], [address], 07/24/2023 14:46:08 07/24/19 24 07/24/2023 CBC W/O DIFFE RENTI AL hemoglobin 12.0 g/dL 12.0-1 5.6 Not Available [facility] (Lab) [address] [place], [address], 07/24/2023 14:46:08 07/24/19 24 07/24/2023 CBC W/O DIFFE RENTI AL hematocrit 37.5 % 35.7-4 5.7 Not Available [facility] (Lab) [address] [place], [address], 07/24/2023 14:46:08 07/24/19 24 07/24/2023 CBC W/O DIFFE RENTI AL mean red cell volume 93.5 fL 82.0-9 9.0 Not Available [facility] (Lab) [address] [place], [address], 07/24/2023 14:46:08 07/24/19 24 07/24/2023 CBC W/O DIFFE RENTI AL mean red cell hemoglobin 29.9 pg 27.0-3 3.0 Not Available [facility] (Lab) [address] [place], [address], 07/24/2023 14:46:08 07/24/19 24 07/24/2023 CBC W/O DIFFE RENTI AL mean RBC HGB concentratio n 32.0 g/dL 31.0-3 6.0 Not Available [facility] (Lab) [address] [place], [address], 07/24/2023 14:46:08 07/24/19 24 07/24/2023 CBC W/O DIFFE RENTI AL red cell distribution width 12.2 % 11.8-1 5.5 Not Available [facility] (Lab) [address] [place], [address], 07/24/2023 14:46:08 07/24/19 24 07/24/2023 CBC W/O DIFFE RENTI AL platelets 438 x10'3 /uL 150-40 0 high Not Available [facility] (Lab) [address] [place], [address], 07/24/2023 14:46:08 07/24/19 24 07/24/2023 CBC W/O DIFFE RENTI AL mean platelet volume 11.1 fL 9.0-12 .4 Not Available [facility] (Lab) [address] [place], [address], 07/24/2023 14:46:08 07/24/19 24 07/24/2023 SEDIM ENTAT ION RATE erythrocyte sedimentatio n rate 39 mm/HR 0-20 high Not Available [facility] (Lab) [address] [place], [address], 07/24/2023 15:10:45 07/24/19 24 07/24/2023 C REACT BEN PROTE IN,UL TRA SENS C-reactive protein 0.86 mg/dL 0.0-0. 5 high Not Available [facility] (Lab) [address] [place], [address], 07/24/2023 15:59:39 07/10/19 24 XR, foot, 3 or more view No observ ation record ed. [email or web address] [facility] [place] [address], [address], [place], [address], 07/10/2023 14:18:56 08/08/19 24 XR, foot, 3 or more view No observ ation record ed. [email or web address] [facility] [place] [address], [address], [place], [address], 08/08/2023 13:29:45 08/08/19 24 XR, foot, 3 or more view No observ ation record ed. [email or web address] [facility] [place] [address], [address], [place], [address], 08/08/2023 13:33:09 10/03/19 24 XR, foot, 3 or more view No observ ation record ed. [email or web address] [facility] [place] [address] [facility], [address], [place], [address], 10/03/2023 10:19:10 11/05/19 24 XR, foot, 3 or more view No observ ation record ed. [email or web address] [facility] [place] [address] [facility], [address], [place], [address], 11/05/2023 11:38:41 Result Notes None recorded. Problems Name Problem SNOMED Code Status Onset Date Resolution Date Notes Provider Name and Address Organization Details Recorded Time Diabetic foot ulcer 691422250 Active 2022 Serg Martinez DPM [address] [facility], [address], [place], [address] , [place] [facility] 18:03:14 Left foot drop 5889263234290 05 Active 2022 Serg Martinez DPM [address], [address], [place], [address] , [facility] [employer] [facility] 3 18:03:51 Diabetic peripheral neuropathy 097188759 Active 2022 Serg Martinez DPM [address], [address], [place], [address] , [facility] [employer] [facility] 3 18:03:57 Back problem 409019799 Active 2022 Louisa shoemaker, [facility] [employer] [facility] 3 16:54:52 Diabetes mellitus 44195553 Active 2022 Louisa shoemaker, [place] [employer] [facility] 3 16:55:00 Dystrophia unguium 85019984 Active 2022 Serg Martinez DPM [address], [address], [place], [address] , [facility] [employer] [facility] 3 17:17:40 Pain of toe of left foot 4558428474225 08 Active 2023 Serg Martinez DPM [address], [address], [place], [address] , [employer] [facility] 4 16:18:03 Callosity on toe 606410039 Active 2023 Serg Martinez DPM [address], [address], [place], [address] , [employer] [facility] 4 16:18:08 Avulsion of toenail of left foot 2837772989384 9107 Active 2023 Serg Martinez DPM [address], [address], [place], [address] , [employer] [facility] 4 16:19:37 Bunion 333236721 Active 2023 Serg Martinze DPM [address], [address], [place], [address] , [facility] [employer] [facility] 4 17:06:00 Postoperat ben visit 263904247 Active 2023 Serg Martinez DPM [address], [address], [place], [address] , [facility] 4 12:38:19 Pain in toe 642908908 Active 2023 Serg Martinez DPM [address], [address], [place], [address] , [facility] 4 17:43:44 Postoperat ben pain 547011055 Active 2023 Serg Martinez DPM [address], [address], [place], [address] , [facility] 4 17:11:09 First metatarsop halangeal joint pain 548008901 Active 2023 Serg Martinez DPM [address], [address], [place], [address] , [facility] 4 10:19:57 Problem Notes None recorded. Procedures Surgical History Date Name Laterality Status Provider Name and Address Organization Details Recorded Time 4 Joint Injection-Podia try 6217 completed Serg Martinez DPM [address], [address], [place], [address], [facility] 10/03/2023 10:18:11 4 Nail Debridement completed Serg Martinez DPM [address], [address], [place], [address], [facility] 04/09/2023 16:18:43 4 Callus Debridement, One completed Serg Martinez DPM [address], [address], [place], [address], [employer] 04/09/2023 16:18:50 3 Wound Care-Podiatry completed Carol Ann Asencio RN [place] [employer] [facility] [employer] 10/31/2022 17:46:57 3 Nail Debridement completed Serg Martinez DPM [address], [address], [place], [address], [facility] [employer] [facility] [employer] 10/30/2022 17:17:31 3 Wound Care-Podiatry completed Serg Martinez DPM [address], [address], [place], [address], [facility] [employer] [facility] [employer] 10/24/2022 17:08:37 3 Wound Care-Podiatry completed Jorge Naqvi RN [place] [employer] [facility] [employer] 10/17/2022 15:19:34 3 Wound Care-Podiatry completed Serg Martinez DPM [address], [address], [place], [address], [facility] [employer] [facility] [employer] 10/10/2022 15:17:45 3 Wound Care-Podiatry completed Serg Martinez DPM [address], [address], [place], [address], [employer] [facility] [employer] 10/10/2022 15:13:54 3 Wound Care-Podiatry completed Serg Martinez DPM [address], [address], [place], [address], [facility] [employer] [facility] [employer] 09/19/2022 18:02:45 Imaging Results Imaging Date Name Status LastModified by Organiz ation Details LastModified Time 07/10/2023 XR, foot, 3 or more view completed [facility] [address], [address], [place], [address], 07/10/2023 14:18:56 08/08/2023 XR, foot, 3 or more view completed [email or web address] [place] [address] [facility], [address], [place], [address], 08/08/2023 13:29:45 08/08/2023 XR, foot, 3 or more view completed [email or web address] [facility] [place] [address], [address], [place], [address], 08/08/2023 13:33:09 10/03/2023 XR, foot, 3 or more view completed [email or web address] [facility] [place] [address], [address], [place], [address], 10/03/2023 10:19:10 11/05/2023 XR, foot, 3 or more view completed [email or web address] [facility] [place] [address], [address], [place], [address], 11/05/2023 11:38:41 Procedure Notes None recorded. Medical Equipment None Reported. Allergies Allergen ID Allergen Name Allergen Category Reaction Reaction Severity Criticality Documentation Date Start Date Code Code System Note Provider Name and Address Organization Details Recorded Time 34567 Medicinal product containin g penicilli n and acting as antibacte rial agent (product) medicatio n edema severe Not available 04/18/2022 28708 05 SNOMED Not Available [facility] 06:53:05 Medications Name Sig Start Date Stop Date Status Note LastModified by Organization Details LastModified Time multivitami n tablet 10/10 completed Not Available Not Available Not Available insulin syringe U-100 with needle 1/2 mL 29 04/22 completed Not Available Not Available Not Available fluoxetine 40 mg capsule TAKE 1 CAPSULE BY MOUTH EVERY DAY DIRECTED active Not Available Not Available No t Available hydroxyzine pamoate 100 mg capsule TAKE 1 CAPSULE BY MOUTH THREE TIMES DAILY NEEDED 10/10 completed Not Available Not Available Not Available methocarbam ol 500 mg tablet 10/10 completed Not Available Not Available Not Available silver sulfadiazin e 1 % topical cream APPLY TOPICALLY DAILY 10/01 completed Not Available Not Available Not Available metformin 500 mg tablet 04/22 completed Not Available Not Available Not Available clonidine HCl 0.1 mg tablet TAKE 1 TABLET BY MOUTH TWICE DAILY NEEDED 06/16 completed Not Available Not Available Not Available doxycycline hyclate 100 mg capsule 100 MG ORALLY DAILY 10/01 completed Not Available Not Available Not Available atorvastati n 20 mg tablet 20 MG ORALLY DAILY active Not Available Not Available No t Available clindamycin HCl 300 mg capsule TAKE 1 CAPSULE BY MOUTH EVERY 8 HOURS 09/19 completed Not Available Not Available Not Available ibuprofen 800 mg tablet TAKE 1 TABLET BY MOUTH EVERY 6 HOURS 04/22 completed Not Available Not Available Not Available hydrocodone 5 mg-acetamin ophen 325 mg tablet TAKE 1 TABLET BY MOUTH EVERY 6 TO 8 HOURS NEEDED 09/25 completed Not Available Not Available Not Available ondansetron HCl 4 mg tablet TAKE 1 TABLET BY MOUTH EVERY 8 HOURS 04/22 completed Not Available Not Available Not Available clindamycin HCl 150 mg capsule TAKE 1 CAPSULE BY MOUTH EVERY 6 HOURS FOR 7 DAYS 07/10 completed Not Available Not Available Not Available olanzapine 10 mg tablet TAKE 1 TABLET BY MOUTH EVERY DAY AT BEDTIME 04/22 completed Not Available Not Available Not Available sulfamethox azole 800 mg-trimetho prim 160 mg tablet 09/19 completed Not Available Not Available Not Available tramadol 50 mg tablet 09/19 completed Not Available Not Available Not Available simvastatin 40 mg tablet TAKE 1 TABLET BY MOUTH DAILY 04/22 completed Not Available Not Available Not Available meloxicam 7.5 mg tablet 10/10 completed Not Available Not Available Not Available oxycodone-a cetaminophe n 5 mg-325 mg tablet 09/19 completed Not Available Not Available Not Available OneTouch Ultra Test strips 10/02 completed Not Available Not Available Not Available pantoprazol e 40 mg tablet,angel yed release TAKE 1 TABLET BY MOUTH EVERY NIGHT AT BEDTIME 04/22 completed Not Available Not Available Not Available guanfacine 1 mg tablet TAKE 1 TABLET BY MOUTH TWICE A DAY DIRECTED 10/02 completed Not Available Not Available Not Available diclofenac sodium 75 mg tablet,angel yed release TAKE 1 TABLET BY MOUTH TWICE A DAY DIRECTED 09/25 completed Not Available Not Available Not Available olanzapine 15 mg tablet 09/19 completed Not Available Not Available Not Available lisinopril 5 mg tablet TAKE 1 TABLET BY MOUTH DAILY active Not Available Not Available No t Available insulin lispro (U-100) 100 unit/mL subcutaneou s solution INJECT 40 UNITS INTO THE SKIN EVERY DAY MAX DAILY DOSE 40 FOR INSULIN PUMP active Not Available Not Available No t Available ibuprofen 600 mg tablet TAKE 1 TABLET BY MOUTH THREE TIMES A DAY WITH MEALS active Not Available Not Available No t Available Septra DS 800 mg-160 mg tablet 10/10 completed Not Available Not Available Not Available levofloxaci n 750 mg tablet TAKE 1 TABLET BY MOUTH EVERY DAY DIRECTED FOR 7 DAYS 04/22 completed Not Available Not Available Not Available propranolol 20 mg tablet TAKE 1 TABLET BY MOUTH TWICE DAILY AROUND THE CLOCK 04/22 completed Not Available Not Available Not Available guanfacine 2 mg tablet TAKE 1 TABLET BY MOUTH TWICE A DAY DIRECTED active Not Available Not Available No t Available cefdinir 300 mg capsule 300 MG ORALLY EVERY 12 HOURS 10/01 completed Not Available Not Available Not Available fluoxetine 20 mg capsule TAKE 1 CAPSULE BY MOUTH EVERY DAY IN THE MORNING WITH 40MG CAPSULE 10/02 completed Not Available Not Available Not Available olanzapine 20 mg tablet TAKE 1 TABLET BY MOUTH EVERY DAY AT DINNER FOR 30 DAYS active Not Available Not Available No t Available lamotrigine 100 mg tablet TAKE 1 TABLET BY MOUTH TWICE DAILY AROUND THE CLOCK active Not Available Not Available No t Available gentamicin 0.1 % topical ointment APPLY A SMALL AMOUNT TO THE AFFECTED foot ulcer AREA BY TOPICAL ROUTE 3 TIMES PER DAY 04/22 completed Not Available Not Available Not Available naproxen 500 mg tablet TAKE 1 TABLET BY MOUTH TWICE A DAY WITH FOOD 10/10 completed Not Available Not Available Not Available bupropion HCl XL 300 mg 24 hr tablet, extended release TAKE 1 TABLET BY MOUTH EVERY DAY IN THE MORNING active Not Available Not Available No t Available bupropion HCl XL 150 mg 24 hr tablet, extended release TAKE 1 TABLET BY MOUTH EVERY DAY IN THE MORNING active Not Available Not Available No t Available Lyrica 75 mg capsule 10/10 completed Not Available Not Available Not Available Lyrica 150 mg capsule 10/10 completed Not Available Not Available Not Available Apidra U-100 Insulin 100 unit/mL subcutaneou s solution 10/10 completed Not Available Not Available Not Available quetiapine 400 mg tablet TAKE 1 TABLET BY MOUTH EVERY DAY AT BEDTIME 04/22 completed Not Available Not Available Not Available Oysco 500/D 500 mg-5 mcg (200 unit) tablet 10/10 completed Not Available Not Available Not Available Xulane 150 mcg-35 mcg/24 hr transdermal patch 10/10 completed Not Available Not Available Not Available Trulicity 1.5 mg/0.5 mL subcutaneou s pen injector INJECT THE CONTENTS OF 1 PEN UNDER THE SKIN ONCE WEEKLY active Not Available Not Available No t Available Trulicity 0.75 mg/0.5 mL subcutaneou s pen injector INJECT 0.75MG UNDER THE SKIN ONCE WEEKLY 04/22 completed Not Available Not Available Not Available Dexcom G6 Sensor device CHANGE EVERY 10 DAYS active Not Available Not Available No t Available Dexcom G6 Transmitter device CHANGE EVERY 90 DAYS active Not Available Not Available No t Available Gvoke HypoPen 2-Pack 1 mg/0.2 mL subcutaneou s auto-inject or INJECT 1MG UNDER THE SKIN A SINGLE DOSE. MAY REPEAT ONCE AFTE 15MINS IF NO RESPONSE active Not Available Not Available No t Available Omnipod 5 G6 Pods (Gen 5) subcutaneou s cartridge CHANGE EVERY 48 HOURS active Not Available Not Available No t Available Omnipod 5 G6 Intro Kit (Gen 5) subcutaneou s cartridge with controller 04/22 completed Not Available Not Available Not Available Vitals Date Recorded Body height Body mass index (BMI) Body weight Heart rate Respiratory rate Oxygen saturation Oxygen saturation in Arterial blood by Pulse oximetry Systolic blood pressure Diastolic blood pressure Provider Name and Address Organization Details Last Updated DateTime 4 165.1 cm 44.9 kg/m2 142059. 94 g 89 /min 14 /min 98 % 98 % 120 mm[Hg] 59 mm[Hg] Marcie Perdomo [facility] 4 17:44:22 Date Recorded Body height Body mass index (BMI) Body weight Heart rate Respiratory rate Oxygen saturation Oxygen saturation in Arterial blood by Pulse oximetry Systolic blood pressure Diastolic blood pressure Provider Name and Address Organization Details Last Updated DateTime 4 165.1 cm 44.9 kg/m2 724132. 94 g 45 /min 14 /min 98 % 98 % 98 mm[Hg] 54 mm[Hg] Marcie Perdomo [facility] 4 16:25:07 Date Recorded Body height Body mass index (BMI) Body weight Heart rate Systolic blood pressure Diastolic blood pressure Provider Name and Address Organization Details Last Updated DateTime 4 165.1 cm 44.9 kg/m2 790678. 94 g 80 /min 151 mm[Hg] 100 mm[Hg] Louisa Gibson [facility] 4 10:10:13 Date Recorded Body height Body mass index (BMI) Body weight Heart rate Respiratory rate Body temperature Oxygen saturation Oxygen saturation in Arterial blood by Pulse oximetry Systolic blood pressure Diastolic blood pressure Provider Name and Address Organization Details Last Updated DateTime 4 165.1 cm 44.9 kg/m2 392760. 94 g 80 /min 14 /min 98 [degF] 98 % 98 % 140 mm[Hg] 90 mm[Hg] Sherrie Penalozahaw [facility] 4 11:18:38 Social History Question Answer Notes LastModified by Organizat ion Details LastModified Time Tobacco Smoking Status Never Smoker [facility] 10/30/2022 16:56:08 What Is Your Level Of Alcohol Consumption? None [email or web address] Information not available 10/30/2022 Sex: Unknown Functional Status None recorded. Mental Status None recorded. Family History Relationship Description Onset Age of this Age Resolved Age Notes LastModified by Organization Details LastModified Time Mother Diabetes mellitus [email or web address] Not available 2022 16:55:40 Mother Cerebrovascu lar accident [email or web address] Not available 01/2023 16:55:48 Mother Hypertensive disorder [email or web address] Not available 2022 16:55:58 Medical History Condition Response BACK INJECTIONS N ALLERGIES/HAYFEVER N LUNG DISEASE/DISORDER N ESRD N HISTORY OF DRUG ABUSE N INSOMNIA N RADIATION / CHEMOTHERAPY N COPD N HIGH CHOLESTEROL / HYPERLIPIDEMIA N RHEUMATOID ARTHRITIS N PVD N EDEMA N CAROTID BLOCKAGE N SHINGLES N BACK / NECK PROBLEMS Y BOWEL PROBLEMS N DEPRESSION (INCLUDING POST ) Y HAVE YOU BEEN HOSPITALIZED OR SEEN IN THE MEDICAL CENTER IN THE PAST YEAR ? Y FAILED BACK SYNDROME N STROKE/TIA N LYMPHEDEMA N THYROID DISEASE N TB SKIN TEST N POLYCYSTIC OVARIES N OBESITY Y HISTORY WITH COMPLICATIONS WITH ANESTHES IA ? N ANEURYSM N FIBROMYALGIA N OSTEOPOROSIS N URINARY/BLADDER/KIDNEY PROBLEMS N CORONARY ARTERY DISEASE (CAD) N Do you have Advance directive? N ARTHRITIS N Do you have a healthcare POA? N RESPIRATORY PROBLEMS N USE OF BLOOD THINNERS N NO SIGNIFICANT PAST MEDICAL HISTORY N DIABETES, TYPE Y VON WILLIBRAND'S DISEASE N PERIPHERAL VASCULAR DISEASE N HEARTBURN / REFLUX N PERIPHERAL ARTERY DISEASE N AFIB N Do you have a living will? N BLOOD CLOTS N POST LAMINECTOMY SYNDROME N HEPATITIS / LIVER DISEASE N PULMONARY DISEASE N USE OF NSAIDS Y GOUT N ALZHEIMER'S DISEASE N PAIN N ARTERIAL INSUFFICIENCY N HEADACHES/MIGRAINES N SEIZURES/EPILEPSY N CHF N VASCULAR DISEASE N Blood Disorder N DIZZINESS N HEART DISEASE/HEART PROBLEMS N NEUROPATHY Y AIDS/HIV N KIDNEY DISEASE N LIVER DISEASE N MENTAL DISORDER/ILLNESS Y NEUROPSYCHOLOGICAL N HYPERTENSION Y CARDIAC ARRHYTHMIA N CANCER: SPECIFY N TOURETTE'S N ANXIETY DISORDER Y ANESTHESIA COMPLICATIONS N ANEMIA/BLOOD DISORDER Y BIPOLAR DISORDER N AUTOIMMUNE DISEASE N OSTEOARTHRITIS N TUBERCULOSIS N FOOT PROBLEM Y Gynecological HistoryNo gynecological history recorded. Obstetrics History GPAL:G 0 P 0 0 0 0 Past Encounters Encounter ID Performer Location Encounter Start Date Encounter Closed Date Diagnosis/Indication Diagnosis SNOMED-CT Code Diagnosis ICD10 Code Diagnosis Note [id number] Serg Martinez DPM [facility] [address] [place] [address] 09/19/2022 17:04:18 09/19/2022 18:39:28 Diabetic foot ulcer 750409074 E13.621 wound debrided per noteSilver collagen dressing with dry bulky gauze dressingdu e to drop foot patient is unable to wear forefoot offloading Darco shoepatien t to bring in bracing so that felt padding can be utilized to offload the great toedaily wound care reviewed with the patient todayFollo w-up in 1 week Left foot drop [id number] 1 91446 M21.372 continue bracing and supportive shoe gear Diabetic p eripheral neuropathy 684737341 E11.40 Patient educated on neuropathy , diabetes, diabetic diet, and daily foot exams. Patient is to check feet daily for new wounds, blisters, redness to prevent infection and ulceration s to the feet. Patient will return to clinic in 3 months for diabetic foot workup. [id number] Serg Martinez DPM [facility] [address] [place] [address] 09/26/2022 13:49:55 09/26/2022 14:26:12 Diabetic foot ulcer 606922202 E13.621 felt offloading performed to the AFO to offload the great toex-rays 09/25/2019 3- for rows of changes to the great toeSilver collagen dressing with dry bulky gauze dressingdu e to drop foot patient is unable to wear forefoot offloading Darco shoedaily wound care reviewed with the patient todayFollo w-up in 1 week Left foot drop [id number] 1 53567 M21.372 continue bracing and supportive shoe gear [id number] Serg Martinez DPM [facility] [address] [place] [address] 10/10/2022 14:28:52 10/10/2022 14:59:43 Diabetic foot ulcer 840986504 E13.621 wound debrided per notecultur es positive for Serratia- sensitive to gentamicin which patient has been utilizing topical with no acute infectionS ilver collagen dressing with dry bulky gauze dressingdu e to drop foot patient is unable to wear forefoot offloading Darco shoepatien t to bring in bracing so that felt padding can be utilized to offload the great toedaily wound care reviewed with the patient todayFollo w-up in 1 week Left foot drop [id number] 1 49514 M21.372 continue bracing and supportive shoe gear [id number] [facility] [address] [place] [address] 10/17/2022 14:51:33 10/17/2022 15:21:09 Diabetic foot ulcer 595535678 E13.621 wound debrided per notecultur es positive for Serratia- sensitive to gentamicin which patient has been utilizing topical with no acute infectionS ilver collagen dressing with dry bulky gauze dressingdu e to drop foot patient is unable to wear forefoot offloading Darco shoecontin ue knee scooterdai ly wound care reviewed with the patient todayFollo w-up in 1 week [id number] Serg Martinez DPM [facility] [address] [place] [address] 10/24/2022 16:12:13 10/24/2022 16:37:57 Diabetic foot ulcer 618139302 E13.621 wound debrided per notecultur es positive for Serratia- sensitive to gentamicin which patient has been utilizing topical with no acute infectionS ilver collagen dressing with dry bulky gauze dressingdu e to drop foot patient is unable to wear forefoot offloading Darco shoecontin ue knee scooterdai ly wound care reviewed with the patient todayFollo w-up in 1 [address] [id number] Serg Martinez DPM [facility] [address], [address] [place] [address] 10/30/2022 16:32:19 11/01/2022 13:50:01 Diabetic peripheral neuropathy 934704024 E11.40 Patient educated on neuropathy , diabetes, diabetic diet, and daily foot exams. Patient is to check feet daily for new wounds, blisters, redness to prevent infection and ulceration s to the feet. Patient will return to clinic in 3 months for diabetic foot workup. Dystrophia unguium 56118 009 L60.3 nails were debrided without incident [id number] Serg Martinez DPM [facility] [address] [place] [address] 10/31/2022 16:43:48 10/31/2022 17:46:04 Diabetic foot ulcer 987343045 E13.621 Wound healedRx diabetic shoes and insertsMay return to normal shoe gearMinima l weight-suha ring until diabetic shoes and inserts obtainedFo llow-up in office in 2 months for routine diabetic foot care and wound check to the area [id number] Serg Martinez DPM [facility] [address], [address] [place] [address] 04/09/2023 15:46:22 04/11/2023 09:30:07 Pain of toe of left foot 8826795806 39951 M79.675 left great toe callusOffl oading Callosity on toe 1705122 01 L84 Debrided without incidentRe commend wide shoe gear Avulsion o f toenail of left foot 9577949876 0338594 S9 great toenailSec ondary to injuryNail is 90% loose and painful without infection [id number] Serg Martinez DPM [facility] Podiatry [address] [address] 04/23/2023 16:42:00 04/24/2023 09:55:56 Avulsion of toenail of left foot 3012001402 0956531 S9.A great toenailhea led nail bed Pain of to e of left foot 7151791167 34706 M79.675 left great toe callusOffl oading Bunion 156471437 M21.61 9 left obtain surgical clearancep humphrey distal chevron and mariela osteotomy [id number] Serg Martinez DPM [facility] [place] [address] [place] [address] 05/20/2023 12:26:11 05/20/2023 14:52:32 Postoperative visit 743022286 Z48.89 status post 3 days for bunion surgery left footdoing wellmild swellingco ntinue postop shoe pressure to heel onlyminima l walking to and from the bathroomke ep dressings clean dry and intact for 1 week Bunion 077475653 M21.61 9 left obtain surgical clearancep humphrey distal chevron and mariela osteotomy [id number] Serg Martinez DPM [facility] Podiatry [address] [address] 06/06/2023 17:50:13 06/10/2023 10:12:46 Postoperative visit 860167076 Z48.89 status post Two weeks for bunion surgery left footdoing wellmild swellingco ntinue postop shoe pressure to heel onlyminima l walking to and from the bathroomke ep dressings clean dry and intact for 1 week for suture removal Bunion 979402563 M21.61 9 plan distal chevron and mariela osteotomy [id number] Serg Martinez DPM [facility] [place] [address] [place] [address] 06/17/2023 16:24:37 06/18/2023 16:19:00 Postoperative visit 674203376 Z48.89 status post 4 weeks for bunion surgery left footdoing Ernuluture s removedmil d swellingco ntinue postop shoe pressure to heel onlyminima l walking to and from the bathroomke ep dressings clean dry and intact for 1 week for suture removal Bunion 493947152 M21.61 9 distal osteotomy and mariela osteotomy [id number] Serg Martinez DPM [facility] Podiatry [address], [address] [address] 07/09/2023 17:38:29 07/18/2023 11:51:45 Postoperative visit 398419890 Z48.89 status post- bunion surgery left [facility]-h ealed incisionmi ld swelling and painrepeat x-rays- will have on 07/09 per patientcon tinue postop shoe pressure to heel onlyminima l walkingfol low-up 3 weeks, repeat xray Bunion 404032246 M21.61 9 distal osteotomy and mariela osteotomy [id number] Serg Martinez DPM [facility] Podiatry [address], [address] [address] 07/23/2023 16:46:25 08/12/2023 10:18:11 Pain in toe 040358697 M79.675 07/09 x-rays- intact hardware with lateral cortex fracture with stable fixation no changes in alignment proximal phalanx post correction rule out deep infection with labs [id number] Serg Martinez DPM [facility] Podiatry [address], [address] [address] 08/06/2023 15:55:45 08/09/2023 09:39:27 Postoperative visit 561571764 Z48.89 status post- bunion surgery left [facility]-h ealed incisionmi ld swelling and painrepeat x-rays- healing proximal phalanx osteotomy with intact hardwareco ntinue postop shoe pressure to heel onlyminima l walkingfol low-up 4 weeks Bunion 632219715 M21.61 9 distal osteotomy and mariela osteotomy [id number] Serg Martinez DPM [facility] [place] [address], [address] [place] [address] 10/03/2023 09:49:54 10/03/2023 15:37:31 Postoperative visit 823424802 Z48.89 status post- bunion surgery left footdoing wellWell-h ealed incisionmi ld swelling and painrepeat x-rays- healing proximal phalanx osteotomy with intact hardwareco ntinue postop shoe pressure to heel onlymay return to normal shoe gearfollow -up 4 weeks- repeat x-rays First metatarsophalangeal joint pain 138964152 M79.672 left great toejoint injection today [id number] Serg Martinez DPM [facility] [place] [address], [address] [place] [address] 11/05/2023 11:03:06 11/05/2023 13:22:30 Bunion 433520324 M21.619 distal osteotomy and mariela osteotomyl eft footx-rays reviewedma y continue normal shoe gearfollow -up as needed Health Concerns Section Related Observation LastModified by Organization Detai ls LastModified Time None Recorded Concern Status LastModified by Organization Details LastModified Time None Recorded Advance Directives Directive None Recorded Payers Encounter Date Sequence Insurance Name Policy Number Policy Iraheta Covered Member ID Iraheta Member ID Guarantor Name 07/09/2023 1 [facility] ON OR AFTER 08/18/20 (MEDICAID REPLACEMENT - HMO) Elise Luevano [id number] Elise Luevano 07/23/2023 1 [facility] ON OR AFTER 08/18/20 (MEDICAID REPLACEMENT - HMO) Elise Luevano [id number] Elise Luevano 08/06/2023 1 [facility] ON OR AFTER 08/18/20 (MEDICAID REPLACEMENT - HMO) Elise Luevano [id number] Elise Luevano 10/03/2023 1 [facility] ON OR AFTER 08/18/20 (MEDICAID REPLACEMENT - HMO) Elise Luevano [id number] Elise Luevano 11/05/2023 1 [facility] ON OR AFTER 08/18/20 (MEDICAID REPLACEMENT - HMO) Elise Luevano [id number] Elise Luevano Notes Date Note Type Note Provider Name and Address Organization Details Recorded Time 07/09/2023 text/html patient is a 38-year-old female who returns the office for follow-up on postsurgical follow-up for bunion correction. Patient states overall she is doing well she is well healed incision. Patient still has some minor swelling of the toe. Patient has been continuing use of the postop shoe. We will review updated x-rays. Patient denies any other complaints. Serg Martinez DPM [address], [address], [place], [address], [facility] 07/10/2023 14:19:42 07/23/2023 text/html . Patient is a 38-year-old female who returns the office for follow-up on bunion surgery. Patient had repeat x-rays which shows a fracture of the lateral cortex of the osteotomy. Patient has stable fixation with intact staple but has swelling and pain in the toe. Patient remains healed she has no redness or increased heat. Patient denies any other complaints. Serg Martinez DPM [address], [address], [place], [address], [facility] 08/08/2023 13:33:36 08/06/2023 text/html . Patient is a 38-year-old female who returns the office status post bunion surgery. Patient had x-rays which were reviewed. Patient has a healing osteotomy site with some increased bone formation. Patient also had some lucency at the area secondary to mild displacement. Patient states the swelling and pain has resolved and she only has at times mild discomfort. Patient denies any other complaints. Serg Martinez DPM [address] [facility], [address], [place], [address], [facility] 08/08/2023 13:30:42 10/03/2023 text/html . Patient is a 38-year-old female who returns the office for follow-up on bunion correction. Patient has a slowly healing osteotomy of the proximal phalanx. Patient has intact hardware she has no erosive changes. Patient has mild swelling to the great toe overall she is doing better. Patient states that she is continue the postop shoe. Patient denies any fever, chills, nausea or vomiting. Patient states she has some mild discomfort in the joint. Patient denies any other complaints. Serg Martinez DPM [address], [place], [address], [facility] 10/03/2023 10:20:57 11/05/2023 text/html . Patient is a 38-year-old female who returns the office for follow-up on healing osteotomy of the proximal phalanx. Patient follows up today for repeat x-rays she states overall she is doing much better she states that she is not having any further pain with walking. Patient denies any changes in alignment with the toe. Patient was reviewed the x-rays which shows significant callus deformity of the dorsal aspect of the proximal phalanx with intact hardware and healed osteotomy. Serg Martinez DPM [address], [place], [address], [facility] 11/05/2023 11:38:56 OBGyn Episode No OBEpisode recorded.
== END 2024-02-22 17:26 | disposition left against medical advice (07) ==
PROVIDERS: PCP Internal Medicine
DX: R11.2 Nausea with vomiting, unspecified (principal)
CPT/HCPCS: 99199

== ENCOUNTER 2024-05-05 14:50 | Outpatient (CLI) | payer OTHER, SELFPAY ==
[2024-05-05 15:13] LABS: Hematocrit 40.6 % (37.0-47.0); Hemoglobin 13.4 g/dL (12.0-15.0); Mean Corpuscular Hemoglobin 30.3 pg (26-34); Mean Corpuscular Volume 91.9 fl (80-100); Mean Platelet Volume 9.8 fl (7.4-10.4); Platelet Count Result 457 k/mm3 (150-375); Red Blood Count 4.42 M/mm3 (4.2-5.4); Red Cell Distribution Width 11.7 % (11.5-14.5); White Blood Count 10.1 K/mm3 (4.5-10.0)
[2024-05-05 15:29] LABS: Alanine Aminotransferase 34 U/L (6-35); Albumin Level 4.3 g/dL (3.5-5.1); Alkaline Phosphatase 76 U/L (38-126); Anion Gap 9 mmol/L (4-12); Aspartate Amino Transferase 32 U/L (14-36); Bilirubin,Total 0.3 mg/dL (0.2-1.3); Blood Urea Nitrogen 13 mg/dL (7-17); Calcium 9.9 mg/dL (8.4-10.2); Carbon Dioxide 29 mmol/L (22-30); Chloride 102 mmol/L (98-107); Cholesterol 135 mg/dL (0-200); Estimated Glomerular Filt Rate > 60; Glucose 128 mg/dL (65-110); HDL Direct 52 mg/dL; Sodium 140 mmol/L (137-145); Triglycerides 95 mg/dL (<150)
[2024-05-05 15:41] LABS: LDL Cholesterol Direct 59 mg/dL
[2024-05-05 15:53] LABS: Creatinine Urine 132.5 mg/dL
[2024-05-05 15:58] LABS: MALB Creatinine Ratio 5.4 mg/g (0-30); Microalbumin Urine Random 7.2 mg/L (0-16.7)
[2024-05-05 16:01] LABS: Thyroid Stimulating Hormone 0.407 uIU/mL (0.465-4.680)
[2024-05-05 16:02] LABS: Free T4 Free Thyroxine 1.05 ng/dL (0.78-2.19); Vitamin D 25 Hydroxy 18.9 ng/mL
--- OUTSIDE RECORDS SUMMARY | 2024-05-05 16:47 | XMS_ITS | Clinical Summary ---
Author Organization [facility] Address [address] [place] [address] Care Team Providers Care Fire Prevention Chief Name Role Phone Logan Ochoa DO Primary Care Provider [phone] Allergies Active Allergy Reactions Criticality Noted Date Comments Penicillins Angioedema,Swelling High 01/17/2015 Medications APIDRA 100 UNIT/ML injection 0 12/12/2016 Active acetaminophen-c odeine 300-30 MG tablet TK 1 T PO Q 6 H 03/31/2019 Active ADMELOG 100 UNIT/ML injection (VIAL) USE UP TO 90 UNITS QD VIA INSULIN PUMP UTD 03/26/2019 Active lisinopril 5 MG tablet Take 5 mg by mouth daily. Active Active Problems Problem Noted Date Diagnosed Date Sacroiliitis 03/25/2018 Other muscle spasm 03/25/2018 Lumbar radiculopathy 01/24/2017 Family History Medical History Relation Comments Diabetes Mother Relation Status Comments Mother Social History Tobacco Use Types Packs/Day Years Used Date Smoking Tobacco: Former Cigarettes 0.5 6 1 03/27/1999 - 01/24/2006 Smokeless Tobacco: Never Tobacco Cessation:Counseling Given: Yes Alcohol Use Standard Drinks/Week Comments Not Asked 0 (1 standard drink = 0.6 oz pur e alcohol) Comments No Sex and Gender Information Value Date Recorded Sex Assigned at Not on file Legal Sex Female 7:40 PM CDT Gender Identity Not on file Sexual Orientation Not on file Last Filed Vital Signs Vital Sign Reading Time Taken Comments Blood Pressure 138/94 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[employer] Pulse 97 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[employer] Temperature 36.6 C (97.8 F) 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[employer] Respiratory Rate 20 05/01/2017 2:00 PM CDT Oxygen Saturation 99% 04/03/2019 11: 45 AM SALES REPRESENTATIVE [employer] Inhaled Oxygen Concentration - - Weight 116.3 kg (256 lb 6.4 oz) 020 11:45 AM SALES REPRESENTATIVE [employer] Height 165.1 cm (5' 5 ) 04/03/2019 11:4 5 AM SALES REPRESENTATIVE [employer] Body Mass Index 42.67 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[employer] Plan of Treatment Health Maintenance Due Date Last Done Comments Cervical Cancer Screening Pa p Smear (Age 30 to 64) Every 3 Years 1985 Annual Physical 1988 Hepatitis C 2003 DTaP, Tdap and Td Vaccines ( 1 - Tdap) 2004 Hepatitis B Vaccines (1 of 3 - 19+ 3-dose series) 2004 Cervical Cancer Screening Pa p with HPV Testing (Age 30 to 64) Every 5 Years 2015 Cervical Cancer Screening with HPV 2015 COVID-19 Vaccine ( - 2023-2 5 season) 2023 Influenza Adult (#1) 2023 HPV Vaccines Aged Out No longer eligi ble based on patient's age to complete this topic Meningococcal B Vaccine Aged Out No l onger eligible based on patient's age to complete this topic Meningococcal Vaccine Aged Out No rocio nuvia eligible based on patient's age to complete this topic Pneumococcal Vaccine: Pediat rics (0 to 5 Years) and At-Risk Patients (6 to 64 Years) Aged Out No longer eligible b ased on patient's age to complete this topic RSV Immunizations Under 20 Months Aged Out No longer eligible based on patient's age to complete this topic Insurance [place] Care Teams Fire Prevention Chief Relationship Specialty Start Date End Date Logan Ochoa DO [address] [place] [address] PCP - General INTERNAL MEDICINE 03/25/18
--- OUTSIDE RECORDS SUMMARY | 2024-05-05 16:47 | XMS_ITS | Clinical Summary ---
Author Organization [facility] Address [address] [facility] [place] [address] Care Team Providers Care Unit Nurse Name Role Phone Logan Ochoa DO Primary Care Provider Allergies Active Allergy Reactions Criticality Noted Date Comments Penicillins Rash Low 05/30/2022 Medications Dexcom G6 Sensor Device CHANGE EVERY 10 DAYS 05/22/2022 Active Dexcom G6 Transmitter Device CHANGE EVERY 90 DAYS 04/10/2022 Active Trulicity 0.75 mg/0.5 mL injection 05/30/2022 Active cloNIDine HCL (CATAPRES) 0.1 mg tablet 05/01/2022 Active insulin lispro (HumaLOG) 100 unit/mL vial INJECT 90 UNITS UNDER THE SKIN THREE TIMES DAILY WITH INSULIN PUMP 05/09/2022 Active lisinopriL (PRINIVIL) 5 mg tablet 05/08/2022 Active FLUoxetine (PROzac) 40 mg capsule 05/08/2022 Active lamoTRIgine (LaMICtal) 100 mg tablet 05/29/2022 Active OLANZapine (ZyPREXA) 15 mg tablet 05/10/2022 Active propranoloL (INDERAL) 20 mg tablet TAKE 1 TABLET BY MOUTH TWICE DAILY AROUND THE CLOCK 05/14/2022 Active simvastatin (ZOCOR) 40 mg tablet 05/08/2022 Active Active Problems No known active problems Family History Medical History Relation Name Comments No Known Problems Brother No Known Problems Daughter Diabetes Father No Known Problems Sister Relation Name Status Comments Brother Alive Daughter Alive Father Sister Alive Social History Tobacco Use Types Packs/Day Years Used Date Smoking Tobacco: Former Cigarettes Smokeless Tobacco: Never Alcohol Use Standard Drinks/Week Comments Never 0 (1 standard drink = 0.6 oz pur e alcohol) Comments Unknown Sex and Gender Information Value Date Recorded Sex Assigned at Not on file 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 Gender Identity Not on file Sexual Orientation Not on file Last Filed Vital Signs Vital Sign Reading Time Taken Comments Blood Pressure 122/78 05/30/2022 3:10 PM CDT Pulse 73 05/30/2022 3:10 PM CDT Temperature 36.1 C (96.9 F) 05/30/2022 3:10 PM CDT Respiratory Rate 10 05/30/2022 3:10 PM CDT Oxygen Saturation 95% 05/30/2022 3:10 PM CDT Inhaled Oxygen Concentration - - Weight 122.5 kg (270 lb) 05/30/2022 3:10 PM CDT Height 165.1 cm (5' 5 ) 05/30/2022 3:10 PM CDT Body Mass Index 44.93 05/30/2022 3:10 PM CDT Plan of Treatment Health Maintenance Due Date Last Done Comments DTAP/TDAP/TD VACCINES (1 - Tdap) 2004 HEPATITIS B VACCINES (1 of 3 - 19+ 3-dose series) 2004 CERVICAL CANCER SCREENING 2015 INFLUENZA VACCINE (#1) 2023 HPV VACCINES Aged Out No longer eligi ble based on patient's age to complete this topic PNEUMOCOCCAL VACCINE 0-49 YEARS Aged Out No longer eligible based on patient's age to complete this topic Insurance [facility] MEDICAID Care Teams Unit Nurse Relationship Specialty Start Date End Date Logan Ochoa DO [address] [facility] [address] [place] [address] PCP - General Internal Medicine 05/30/22
--- OUTSIDE RECORDS SUMMARY | 2024-05-05 16:47 | XMS_ITS | CONTINUITY OF CARE DOCUMENT ---
Author Name nir loyola Address Unknown Organization [facility] Address [address] [place] [address] Phone [phone] Care Team Providers Care Warp Yarn Sorter Name Role Phone Richard COSME, Radha Unavailable MANSI HUBBARD MD Unavailable MALLY ULLOA MD Unavailable INSURANCE PROVIDERS Payer name Policy type / Coverage type Silvestre red libertarian [place] MEDICA[place] (2) Medicaid [id number]
--- OUTSIDE RECORDS SUMMARY | 2024-05-05 16:47 | XMS_ITS | Data Portability ---
Author Organization [facility] Approva [facility], Main Office Address [address] [place] [address] Care Team Providers Care Special Education Paraprofessional Name Role Phone CHANTAL WHITE Primary Care Provider [phone] CHANTAL WHITE Referring Provider [phone] ALIREZA AGUILAR Primary Care Provider Assessment Encounter Date Assessment Date Assessment LastModified by Organization Details LastModified Time 07/09/2023 07/09/2023 This note is dictated and transcribed by [employer]. Slope Tender variances may occur. Despite proofreading, typographical errors may occur. Occasional wrong-word or 'dawcv-k-fyhb' substitutions may have occurred due to the inherent limitations of voice recording. Read the chart carefully and recognize, using context, where substitutions have occurred. Not available 07/10/2023 09:52:13 07/23/2023 07/23/2023 This note is dictated and transcribed by [employer]. Slope Tender variances may occur. Despite proofreading, typographical errors may occur. Occasional wrong-word or 'fkxty-l-zbtr' substitutions may have occurred due to the inherent limitations of voice recording. Read the chart carefully and recognize, using context, where substitutions have occurred. Not available 07/23/2023 17:44:26 08/06/2023 08/06/2023 This note is dictated and transcribed by [employer]. Slope Tender variances may occur. Despite proofreading, typographical errors may occur. Occasional wrong-word or 'pjfxj-e-nohg' substitutions may have occurred due to the inherent limitations of voice recording. Read the chart carefully and recognize, using context, where substitutions have occurred. Not available 08/08/2023 13:25:12 10/03/2023 10/03/2023 This note is dictated and transcribed by [employer]. Slope Tender variances may occur. Despite proofreading, typographical errors may occur. Occasional wrong-word or 'zsvzn-b-epae' substitutions may have occurred due to the inherent limitations of voice recording. Read the chart carefully and recognize, using context, where substitutions have occurred. [email or web address] Not available 10/03/2023 10:18:39 11/05/2023 11/05/2023 This note is dictated and transcribed by [employer]. Slope Tender variances may occur. Despite proofreading, typographical errors may occur. Occasional wrong-word or 'ogqzz-h-itjg' substitutions may have occurred due to the inherent limitations of voice recording. Read the chart carefully and recognize, using context, where substitutions have occurred. [email or web address] Not available 11/05/2023 11:36:49 Plan of Treatment Reminders Order Date Submit Date Provider Last Modified By Organization Details Last Modified Time Details Appointments None recorded. Lab unlisted lab - CBC study [address] (Lab), [address] [place], [address], 4 08:18:04 C-reactive protein, quantitativ e, serum or plasma [address] (Lab), [address] [place], [address], 4 08:18:04 erythrocyte sedimentati on rate, QN, blood [address] (Lab), [address] [place], [address], 4 08:18:04 Referral None recorded. Procedures None recorded. Surgeries None recorded. Imaging XR, foot, 3 or more view 2023 024 [email or web address] Osorio [facility] [place], [facility], [address], [place], [address], 4 11:38:44 XR, foot, 3 or more view 2023 024 [email or web address] 7 [facility] [place], [address] [facility], [address], [place], [address], 4 10:19:11 XR, foot, 3 or more view 2023 024 [email or web address] [facility] (One Call Scheduling), [address] [place], [address], 4 08:34:13 XR, foot, 3 or more view 2023 024 [email or web address] 7 [facility] [place], [address] [facility], [address], [place], [address], 4 13:29:48 XR, foot, 3 or more view - podiatry read 2023 024 [email or web address] [facility] (One Call Scheduling), [address] [place], [address], 4 09:27:28 XR, foot, 3 or more view 2023 024 [email or web address] 7 [facility] [place], [address] [facility], [address], [place], [address], 4 13:33:10 XR, foot, 3 or more view 2023 024 [email or web address] [facility] [place], [facility] [facility], [address], [place], [address], 4 14:18:57 Medication Orders None recorded. Patient TargetsNo targets recorded. Patient InstructionsNo instructions recorded. Reason for Referral None Reported. Results Created Date Observation Date Name Description Value Unit Range Abnormal Flag Note LastModifiedBy Organization Detail LastModifiedTime 07/24/19 24 07/24/2023 CBC W/O DIFFE RENTI AL white blood cells 9.4 x10'3 /uL 4.2-10 .8 Not Available [facility] (Lab) [address] [place], [address], 07/24/2023 14:46:08 07/24/19 24 07/24/2023 CBC W/O DIFFE RENTI AL red blood cells 4.01 x10'6 /uL 3.80-5 .20 Not Available [facility] (Lab) [address] [place], [address], 07/24/2023 14:46:08 07/24/19 24 07/24/2023 CBC W/O DIFFE RENTI AL hemoglobin 12.0 g/dL 12.0-1 5.6 Not Available [facility] (Lab) [address] [place], [address], 07/24/2023 14:46:08 07/24/19 24 07/24/2023 CBC W/O DIFFE RENTI AL hematocrit 37.5 % 35.7-4 5.7 Not Available [facility] (Lab) [address] [place], [address], 07/24/2023 14:46:08 07/24/19 24 07/24/2023 CBC W/O DIFFE RENTI AL mean red cell volume 93.5 fL 82.0-9 9.0 Not Available [facility] (Lab) [address] [place], [address], 07/24/2023 14:46:08 07/24/19 24 07/24/2023 CBC W/O DIFFE RENTI AL mean red cell hemoglobin 29.9 pg 27.0-3 3.0 Not Available [facility] (Lab) [address] [place], [address], 07/24/2023 14:46:08 07/24/19 24 07/24/2023 CBC W/O DIFFE RENTI AL mean RBC HGB concentratio n 32.0 g/dL 31.0-3 6.0 Not Available [facility] (Lab) [address] [place], [address], 07/24/2023 14:46:08 07/24/19 24 07/24/2023 CBC W/O DIFFE RENTI AL red cell distribution width 12.2 % 11.8-1 5.5 Not Available [facility] (Lab) [address] [place], [address], 07/24/2023 14:46:08 07/24/19 24 07/24/2023 CBC W/O DIFFE RENTI AL platelets 438 x10'3 /uL 150-40 0 high Not Available [facility] (Lab) [address] [place], [address], 07/24/2023 14:46:08 07/24/19 24 07/24/2023 CBC W/O DIFFE RENTI AL mean platelet volume 11.1 fL 9.0-12 .4 Not Available [facility] (Lab) [address] [place], [address], 07/24/2023 14:46:08 07/24/19 24 07/24/2023 SEDIM ENTAT ION RATE erythrocyte sedimentatio n rate 39 mm/HR 0-20 high Not Available [facility] (Lab) [address] [place], [address], 07/24/2023 15:10:45 07/24/19 24 07/24/2023 C REACT BEN PROTE IN,UL TRA SENS C-reactive protein 0.86 mg/dL 0.0-0. 5 high Not Available [facility] (Lab) [address] [place], [address], 07/24/2023 15:59:39 07/10/19 24 XR, foot, 3 or more view No observ ation record ed. [email or web address] [facility] [place] [address], [address], [place], [address], 07/10/2023 14:18:56 08/08/19 24 XR, foot, 3 or more view No observ ation record ed. [email or web address] [facility] [place] [address], [address], [place], [address], 08/08/2023 13:29:45 08/08/19 24 XR, foot, 3 or more view No observ ation record ed. [email or web address] [facility] [place] [address], [address], [place], [address], 08/08/2023 13:33:09 10/03/19 24 XR, foot, 3 or more view No observ ation record ed. [email or web address] [facility] [place] [address] [facility], [address], [place], [address], 10/03/2023 10:19:10 11/05/19 24 XR, foot, 3 or more view No observ ation record ed. [email or web address] [facility] [place] [address] [facility], [address], [place], [address], 11/05/2023 11:38:41 Result Notes None recorded. Problems Name Problem SNOMED Code Status Onset Date Resolution Date Notes Provider Name and Address Organization Details Recorded Time Diabetic foot ulcer 188046182 Active 2022 Serg Martinez DPM [address] [facility], [facility] [address], [place], [address] , [place] [facility] 18:03:14 Left foot drop 2851442649961 05 Active 2022 Serg Martinez DPM [address], [address], [place], [address] , [facility] To[employer]to [facility] [employer] [facility] 3 18:03:51 Diabetic peripheral neuropathy 443994871 Active 2022 Serg Martinez DPM [address], [address], [place], [address] , [facility] [employer] [facility] [employer] [facility] 3 18:03:57 Back problem 685682028 Active 2022 Louisa shoemaker, [facility] [employer] [facility] 3 16:54:52 Diabetes mellitus 67989564 Active 2022 Louisa shoemaker, [place] To[employer]to [facility] [employer] [facility] 3 16:55:00 Dystrophia unguium 22063158 Active 2022 Serg Martinez DPM [address], [address], [place], [address] , [facility] To[employer]to [facility] [employer] [facility] 3 17:17:40 Pain of toe of left foot 1547219837928 08 Active 2023 Serg Martinez DPM [address], [address], [place], [address] , [employer] [facility] 4 16:18:03 Callosity on toe 688837180 Active 2023 Serg Martinez DPM [address], [address], [place], [address] , [employer] [facility] [employer] [facility] 4 16:18:08 Avulsion of toenail of left foot 7905580477189 9107 Active 2023 Serg Martinez DPM [address], [address], [place], [address] , [employer] [facility] [employer] [facility] 4 16:19:37 Bunion 700326490 Active 2023 Serg Martinez DPM [address], [address], [place], [address] , [facility] To[employer]to [facility] [employer] [facility] 4 17:06:00 Postoperat ben visit 396924626 Active 2023 Serg Martinez DPM [address], [address], [place], [address] , [employer] 4 12:38:19 Pain in toe 159135639 Active 2023 Serg Martinez DPM [address], [address], [place], [address] , [employer] 4 17:43:44 Postoperat ben pain 730092214 Active 2023 Serg Martinez DPM [address], [address], [place], [address] , [employer] 4 17:11:09 First metatarsop halangeal joint pain 726262367 Active 2023 Serg Martinez DPM [address], [address], [place], [address] , [employer] 4 10:19:57 Problem Notes None recorded. Procedures Surgical History Date Name Laterality Status Provider Name and Address Organization Details Recorded Time 4 Joint Injection-Podia try 6217 completed Serg Martinez DPM [address], [address], [place], [address], [employer] 10/03/2023 10:18:11 4 Nail Debridement completed Serg Martinez DPM [address], [address], [place], [address], [employer] 04/09/2023 16:18:43 4 Callus Debridement, One completed Serg Martinez DPM [address], [address], [place], [address], [employer] 04/09/2023 16:18:50 3 Wound Care-Podiatry completed Carol Ann Asencio RN [place] To[employer] [facility] [employer] 10/31/2022 17:46:57 3 Nail Debridement completed Serg Martinez DPM [address], [address], [place], [address], [facility] [employer] [facility] [employer] 10/30/2022 17:17:31 3 Wound Care-Podiatry completed Serg Martinez DPM [address], [address], [place], [address], [facility] To[employer]to [facility] [employer] 10/24/2022 17:08:37 3 Wound Care-Podiatry completed Jorge Naqvi RN [place] To[employer] [facility] [employer] 10/17/2022 15:19:34 3 Wound Care-Podiatry completed Serg Martinez DPM [address], [address], [place], [address], [facility] To[employer]to [facility] [employer] 10/10/2022 15:17:45 3 Wound Care-Podiatry completed Serg Martinez DPM [address], [address], [place], [address], [employer] [facility] [employer] 10/10/2022 15:13:54 3 Wound Care-Podiatry completed Serg Martinez DPM [address], [address], [place], [address], [facility] To[employer]to [facility] [employer] 09/19/2022 18:02:45 Imaging Results Imaging Date Name Status LastModified by Organiz ation Details LastModified Time 07/10/2023 XR, foot, 3 or more view completed [facility] [address], [address], [place], [address], 07/10/2023 14:18:56 08/08/2023 XR, foot, 3 or more view completed [email or web address] [facility] [place] [address] [facility], [address], [place], [address], 08/08/2023 13:29:45 08/08/2023 XR, foot, 3 or more view completed [email or web address] [facility] [place] [address], [address], [place], [address], 08/08/2023 13:33:09 10/03/2023 XR, foot, 3 or more view completed [email or web address] [facility] [place] [address], [address], [place], [address], 10/03/2023 10:19:10 11/05/2023 XR, foot, 3 or more view completed [email or web address] [facility] [place] [address], [address], [place], [address], 11/05/2023 11:38:41 Procedure Notes None recorded. Medical Equipment None Reported. Allergies Allergen ID Allergen Name Allergen Category Reaction Reaction Severity Criticality Documentation Date Start Date Code Code System Note Provider Name and Address Organization Details Recorded Time 45143 Product containin g penicilli n (product) medicatio n edema severe Not available 04/18/2022 50563 8001 SNOMED Not Available [facility] 06:53:05 Medications Name Sig Start Date Stop [...] Updated DateTime 4 165.1 cm 44.9 kg/m2 890090. 94 g 89 /min 14 /min 98 % 98 % 120 mm[Hg] 59 mm[Hg] Marcie Perdomo [employer] 4 17:44:22 Date Recorded Body height Body mass index (BMI) Body weight Heart rate Respiratory rate Oxygen saturation Oxygen saturation in Arterial blood by Pulse oximetry Systolic blood pressure Diastolic blood pressure Provider Name and Address Organization Details Last Updated DateTime 4 165.1 cm 44.9 kg/m2 682529. 94 g 45 /min 14 /min 98 % 98 % 98 mm[Hg] 54 mm[Hg] Marcie Perdomo Jaco Solarsi [employer] 4 16:25:07 Date Recorded Body height Body mass index (BMI) Body weight Heart rate Systolic blood pressure Diastolic blood pressure Provider Name and Address Organization Details Last Updated DateTime 4 165.1 cm 44.9 kg/m2 941222. 94 g 80 /min 151 mm[Hg] 100 mm[Hg] Louisa Arreaga [facility] [employer] [facility] 4 10:10:13 Date Recorded Body height Body mass index (BMI) Body weight Heart rate Respiratory rate Body temperature Oxygen saturation Oxygen saturation in Arterial blood by Pulse oximetry Systolic blood pressure Diastolic blood pressure Provider Name and Address Organization Details Last Updated DateTime 4 165.1 cm 44.9 kg/m2 910258. 94 g 80 /min 14 /min 98 [degF] 98 % 98 % 140 mm[Hg] 90 mm[Hg] Sherrie Kurt [facility] 4 11:18:38 Social History Question Answer Notes LastModified by Organizat ion Details LastModified Time Tobacco Smoking Status Never [facility]oker [facility]/30/2022 16:56:08 What Is Your Level Of [...] HAVE YOU BEEN HOSPITALIZED OR SEEN IN [facility] IN THE PAST YEAR ? Y FAILED [...] SNOMED-CT Code Diagnosis ICD10 Code Diagnosis Note [id number] Serg Martinez DPM [facility] [address] [place] [address] 09/19/2022 17:04:18 09/19/2022 18:39:28 Diabetic foot ulcer 923292701 E13.621 wound debrided per noteSilver collagen dressing with dry bulky gauze dressingdu e to drop foot patient is unable to wear forefoot offloading Darco shoepatien t to bring in bracing so that felt padding can be utilized to offload the great toedaily wound care reviewed with the patient todayFollo w-up in 1 week Left foot drop 748845592 1 11443 M21.372 continue bracing and supportive shoe gear Diabetic p eripheral neuropathy 505727846 E11.40 Patient educated on neuropathy , diabetes, diabetic diet, and daily foot exams. Patient is to check feet daily for new wounds, blisters, redness to prevent infection and ulceration s to the feet. Patient will return to clinic in 3 months for diabetic foot workup. [id number] Serg Martinez DPM [facility] [address] [place] [address] 09/26/2022 13:49:55 09/26/2022 14:26:12 Diabetic foot ulcer 964554746 E13.621 felt offloading performed to the AFO to offload the great toex-rays 09/25/2019 3- for rows of changes to the great toeSilver collagen dressing with dry bulky gauze dressingdu e to drop foot patient is unable to wear forefoot offloading Darco shoedaily wound care reviewed with the patient todayFollo w-up in 1 week Left foot drop 254724254 1 80997 M21.372 continue bracing and supportive shoe gear [id number] Serg Martinez DPM [facility] [address] [place] [address] 10/10/2022 14:28:52 10/10/2022 14:59:43 Diabetic foot ulcer 550205502 E13.621 wound debrided per notecultur es positive [...] w-up in 1 week Left foot drop 746321214 1 04992 M21.372 continue bracing and supportive shoe gear [id number] Serg Martinez DPM [facility] [address] [place] [address] 10/17/2022 14:51:33 10/17/2022 15:21:09 Diabetic foot ulcer 434950400 E13.621 wound debrided per notecultur es positive for Serratia- sensitive to gentamicin which patient has been utilizing topical with no acute infectionS ilver collagen dressing with dry bulky gauze dressingdu e to drop foot patient is unable to wear forefoot offloading Darco shoecontin ue knee scooterdai ly wound care reviewed with the patient todayFollo w-up in 1 week [id number] Serg Martinez DPM [facility] [address] [place] [address] 10/24/2022 16:12:13 10/24/2022 16:37:57 Diabetic foot ulcer 202401594 E13.621 wound debrided per notecultur es positive for Serratia- sensitive to gentamicin which patient has been utilizing topical with no acute infectionS ilver collagen dressing with dry bulky gauze dressingdu e to drop foot patient is unable to wear forefoot offloading Darco shoecontin ue knee scooterdai ly wound care reviewed with the patient todayFollo w-up in 1 week [id number] Serg Martinez DPM [facility] Podiatry [address], [facility] [address] [place] [address] 10/30/2022 16:32:19 11/01/2022 13:50:01 Diabetic peripheral neuropathy 017843284 E11.40 Patient educated on neuropathy , diabetes, diabetic diet, and daily foot exams. Patient is to check feet daily for new wounds, blisters, redness to prevent infection and ulceration s to the feet. Patient will return to clinic in 3 months for diabetic foot workup. Dystrophia unguium 76933 009 L60.3 nails were debrided without incident [id number] Serg Martinez DPM [facility] [address] [place] [address] 10/31/2022 16:43:48 10/31/2022 17:46:04 Diabetic foot ulcer 168987186 E13.621 Wound healedRx diabetic shoes and insertsMay return to normal shoe gearMinima l weight-suha ring until diabetic shoes and inserts obtainedFo llow-up in office in 2 months for routine diabetic foot care and wound check to the area [id number] Serg Martinez DPM [facility] Pod[facility]ry [address], [facility] [address] [place] [address] 04/09/2023 15:46:22 04/11/2023 09:30:07 Pain of toe of left foot 4079134918 19495 M79.675 left great toe callusOffl oading Callosity on toe 20090528 01 L84 Debrided without incidentRe commend wide shoe gear Avulsion o f toenail of left foot 9687122147 2271808 S9 great toenailSec ondary to injuryNail is 90% loose and painful without infection [id number] Serg Martinez DPM [facility] [place] [address] [facility], [address] [address] 04/23/2023 16:42:00 04/24/2023 09:55:56 Avulsion of toenail of left foot 8510599507 8239935 S9A great toenailhea led nail bed Pain of to e of left foot 8399481987 84354 M79.675 left great toe callusOffl oading Bunion 560240417 M21.61 9 left obtain surgical clearancep humphrey distal chevron and mariela osteotomy [id number] Serg Martinez DPM [facility] Podiat[facility] [place] [address] [place] [address] 05/20/2023 12:26:11 05/20/2023 14:52:32 Postoperative visit 101691825 Z48.89 status post 3 days for bunion surgery left footdoing wellmild swellingco ntinue postop shoe pressure to heel onlyminima l walking to and from the bathroomke ep dressings clean dry and intact for 1 week Bunion 527938107 M21.61 9 left obtain surgical clearancep humphrey distal chevron and mariela osteotomy [id number] Serg Martinez DPM [facility] Podiatry [address], [address] [address] 06/06/2023 17:50:13 06/10/2023 10:12:46 Postoperative visit 846979683 Z48.89 status post Two weeks for bunion surgery left footdoing wellmild swellingco ntinue postop shoe pressure to heel onlyminima l walking to and from the bathroomke ep dressings clean dry and intact for 1 week for suture removal Bunion 231425594 M21.61 9 plan distal chevron and mariela osteotomy [id number] Serg Martinez DPM [facility] Podiatry [place] [address] [place] [address] 06/17/2023 16:24:37 06/18/2023 16:19:00 Postoperative visit 312447158 Z48.89 status post 4 weeks for bunion surgery left footdoing Monticellouture s removedmil d swellingco ntinue postop shoe pressure to heel onlyminima l walking to and from the bathroomke ep dressings clean dry and intact for 1 week for suture removal Bunion 355459524 M21.61 9 distal osteotomy and mariela osteotomy [id number] Serg Martinez DPM [facility] Podiatry [address], [address] [address] 07/09/2023 17:38:29 07/18/2023 11:51:45 Postoperative visit 939532962 Z48.89 status post- [facility] ealed incisionmi ld swelling and painrepeat x-rays- will have on 07/09 per patientcon tinue postop shoe pressure to heel onlyminima l walkingfol low-up 3 weeks, repeat xray Bunion 555560923 M21.61 9 distal osteotomy and mariela osteotomy [id number] Serg Martinez DPM [facility] Podiatry [address], [address] [address] 07/23/2023 16:46:25 08/12/2023 10:18:11 Pain in toe 094195753 M79.675 07/09 x-rays- intact hardware with lateral cortex fracture with stable fixation no changes in alignment proximal phalanx post correction rule out deep infection with labs [id number] Serg Martinez DPM [facility] [address], [address] [address] 08/06/2023 15:55:45 08/09/2023 09:39:27 Postoperative visit 532722557 Z48.89 status post- [facility] ealed incisionmi ld swelling and painrepeat x-rays- healing proximal phalanx osteotomy with intact hardwareco ntinue postop shoe pressure to heel onlyminima l walkingfol low-up 4 weeks Bunion 347369410 M21.61 9 distal osteotomy and mariela osteotomy [id number] Serg Martinez DPM [facility] Podiatry [address], [address] [place] [address] 10/03/2023 09:49:54 10/03/2023 15:37:31 Postoperative visit 692381462 Z48.89 status post- bunion surgery left footdoing wellWell-h ealed incisionmi ld swelling and painrepeat x-rays- healing proximal phalanx osteotomy with intact hardwareco ntinue postop shoe pressure to heel onlymay return to normal shoe gearfollow -up 4 weeks- repeat x-rays First metatarsophalangeal joint pain 224774217 M79.672 left great toejoint injection today [id number] Serg Martinez DPM [facility] [address], [facility] [address] [place] [address] 11/05/2023 11:03:06 11/05/2023 13:22:30 Bunion 080396949 M21.619 distal osteotomy and mariela osteotomyl eft [...] Iraheta Member ID Guarantor Name 07/09/2023 1 [facility] ON OR AFTER 08/18/20 (MEDICAID REPLACEMENT - HMO) Elise Luevano [id number] Elise Luevano 07/23/2023 1 [facility] ON OR AFTER 08/18/20 (MEDICAID REPLACEMENT - HMO) Elise Luevano [id number] Elise Luevano 08/06/2023 1 [facility] ON OR AFTER 08/18/20 (MEDICAID REPLACEMENT - HMO) Elise Luevano [id number] Elise Luevano 10/03/2023 1 [facility] ON OR AFTER 08/18/20 (MEDICAID REPLACEMENT - HMO) Elise Luevano [id number] Elise Luevano 11/05/2023 1 [facility] ON OR AFTER 08/18/20 (MEDICAID REPLACEMENT - HMO) Elise Luevano [id number] Elise Luevano Notes Date Note Type Note [...] any other complaints. Serg Martinez DPM [address], [address], [place], [address], [employer] 07/10/2023 14:19:42 07/23/2023 text/html . Patient is [...] any other complaints. Serg Martinez DPM [address], [address], [place], [address], [employer] 08/08/2023 13:33:36 08/06/2023 text/html . Patient is [...] any other complaints. Serg Martinez DPM [address], [address], [place], [address], [employer] 08/08/2023 13:30:42 10/03/2023 text/html . Patient is [...] Martinez DPM [address], [address], [place], [address], [employer] 10/03/2023 10:20:57 11/05/2023 text/html . Patient is [...] hardware and healed osteotomy. Serg Martinez DPM [address], [address], [place], [address], [employer] 11/05/2023 11:38:56 OBGyn Episode No OBEpisode recorded.
--- OUTSIDE RECORDS SUMMARY | 2024-05-05 16:47 | XMS_ITS | Encounter Summary ---
Author Organization [facility] Address [address] [place] [address] Care Team Providers Care Muck Operator Name Role Phone Dirk Montoya MD Primary Care Provider Unavailable Logan Ochoa DO Primary Care Provider [phone] Reason for Referral * Surgical (Routine) - Closed Specialty Diagnoses / Procedures Referred By Contneeta t Referred To Contact Procedures Case request operating room: INJECTION EPIDURAL TRANSFORAMINAL L5-S1 Dorothy Adams MD [facility] [address] [place] [address] Phone: tel: fax: Referral ID Status Reason Start Date Expiration Date Visits Re quested Visits Authorized [id number] Closed 03/08/2017 04/08/2018 1 1 [employer] Encounter Details Date Type Department Care Team (Late st Contact Info) Description 03/08/2017 Prep for Procedure [facility] [place], [place] [id number] Dorothy Adams MD [facility] [address] [place] [phone] Social History Tobacco Use Types Packs/Day Years Used Date Smoking Tobacco: Former Cigarettes 0.5 6 1 03/27/1999 - 01/24/2006 Smokeless Tobacco: Never Alcohol Use Standard Drinks/Week Comments No 0 (1 standard drink = 0.6 oz pur e alcohol) Comments Unknown Sex and Gender Information Value Date Recorded Sex Assigned at Not on file Legal Sex Female 7:40 PM CDT Gender Identity Not on file Sexual Orientation Not on file documented as of this encounter Plan of Treatment Not on file documented as of this encounter Visit Diagnoses Not on filedocumented in this encounter Care Teams Muck Operator Relationship Specialty Start Date End Date Dirk Montoya MD PCP - General 06/04/16 Logan Ochoa DO [address] [place] [address] PCP - General INTERNAL MEDICINE 03/25/18 documented as of this encounter
== END 2024-05-05 14:51 | disposition home or self-care (01) ==
LOC: ANHLAB 14:51
PROVIDERS: PCP Internal Medicine; Visit Provider Internal Medicine
DX: E66.01 Morbid (severe) obesity due to excess calories (principal); Z46.81 Encounter for fitting and adjustment of insulin pump; E11.9 Type 2 diabetes mellitus without complications; Z79.4 Long term (current) use of insulin; Z96.41 Presence of insulin pump (external) (internal); E87.1 Hypo-osmolality and hyponatremia; Z68.41 Body mass index [BMI] 40.0-44.9, adult; E78.5 Hyperlipidemia, unspecified; I10 Essential (primary) hypertension; Z71.3 Dietary counseling and surveillance
CPT/HCPCS: 36415; 80053; 80061; 82043; 82306; 82607; 84439; 84443; 85027

== ENCOUNTER 2024-07-06 09:47 | Emergency (ER) | payer OTHER, SELFPAY ==
--- NOTE | ~2024-07-06 | XR_ITS ---
XR abdomen/kub 1V Ordering provider: Carlton Davenport APRN History: . epigastric pain x 1 wk; denies bowel c/o . Comparison: None. FINDINGS: BOWEL: Fecal material is loaded in the colon. Nonobstructive bowel gas pattern. ORGANOMEGALY: None. SIGNIFICANT PATHOLOGIC CALCIFICATIONS: None. OTHER: No free air is seen under the diaphragm. Postoperative changes in the lower lumbar area. IMPRESSION: NO ACUTE ABDOMINAL FINDINGS. Constipation. Reviewed, dictated and finalized at location A.
[2024-07-06 09:51] VITALS: BP 127/82; PULSE 85; RESP 16; TEMP 36.3; O2SAT 100
--- NOTE | 2024-07-06 10:59 | ED.ABDPAIN ---
HPI - Abdominal Pain General Chief Complaint: Abdominal Pain Stated Complaint: Stomach Pain Time Seen by Provider: 07/06/24 10:50 Source: patient and RN notes reviewed Mode of arrival: ambulatory Limitations: no limitations History of Present Illness HPI narrative: 39-year-old female presents Express Care complaining of epigastric pain for 1 week. Patient reports the pain is constant and gets worse after she eats food. Patient states she also gets nausea when she eats something. Patient denies any vomiting. Patient has been able to keep fluids and food down. Patient's last bowel movement was yesterday and normal. Patient denies any diarrhea. Patient reports sharp and aching sensation to her epigastrium patient denies any fevers, body aches, chills, blood in her stools, hematochezia, chest pain, shortness of breath, or jaw pain. Patient reports being diabetic. Patient reports having a cholecystectomy. Patient denies any urinary symptoms. Related Data Home Medications Medication Instructions Recorded Confirmed Last Taken Type propranolol 20 mg tablet 20 mg PO Q12H 10/25/20 01/20/24 09/03/22 History lamotrigine 100 mg tablet 100 mg PO DAILY 05/11/21 01/20/24 09/03/22 History fluoxetine 40 mg capsule 40 mg PO DAILY 05/23/22 01/20/24 09/03/22 History olanzapine 15 mg tablet 20 mg PO QHS 05/23/22 01/20/24 09/03/22 History clonidine HCl 0.1 mg tablet 0.1 mg PO DAILY 09/04/22 01/20/24 09/03/22 History subcutaneous insulin pump 09/12/22 01/20/24 Unknown History bupropion HCl 150 mg 24 hr tablet, 150 mg PO QAM 09/13/23 01/20/24 Unknown History extended release Allergies Allergy/AdvReac Type Severity Reaction Status Date / Time Penicillins AdvReac Unknown swelling Verified 07/06/24 10:15 Review of Systems Review of Systems: CONSTITUTIONAL: Denies fever, chills, body aches, or sweats. EYES: Denies visual changes, redness, or discharge. ENT: Denies rhinorrhea, congestion, sore throat, or otalgia. CARDIOVASCULAR: Denies chest pain, palpitations, or edema. RESPIRATORY: Denies cough or dyspnea. GASTROINTESTINAL: Positive for abdominal pain and nausea. Negative for vomiting, diarrhea, hematochezia, melena GENITOURINARY: Denies dysuria or hematuria. SKIN: Denies rash or itching. MUSCULOSKELETAL: Denies back pain, joint pain, or myalgia. NEUROLOGIC: Denies headache, numbness, or weakness. PSYCHIATRIC: Denies anxiety or depression. All other systems reviewed are negative, except as documented in HPI. [facility] Past Medical History Medical History Chronic pain syndrome Diabetes mellitus type 1.5, managed as type 1 Diabetic foot ulcer Type 1 diabetes mellitus Other chronic pain Essential hypertension Body mass index (BMI) greater than 40 (12/18/17) Insulin pump in place Morbid obesity with BMI of 45.0-49.9, adult Obesity, morbid, BMI 40.0-49.9 Schizophrenia Adenoiditis History of deviated nasal septum Hypertrophy of both inferior nasal turbinates Anemia Anxiety Depression Thrombocytosis Hyperlipidemia Back pain Hypertension Surgical History Surgical History History of bunionectomy History of laparoscopic cholecystectomy (~2019) H/O excision of mass Excision of subQ mass left thigh mass on 11/21/21. H/O excision of mass exc rt forearm subcutaneous mass x 2 05/22/21 History of back surgery X5 H/O tubal ligation BL Family History Family History Father Diabetes mellitus Mother Diabetes mellitus Cerebrovascular accident Hypertension Grandparent Diabetes mellitus Other Kidney disease Skin cancer Social History Social History Social History: She lives at home with her boyfriend. She is a 16-year-old daughter. Her mother also lives in the same house. Patient is on disability due to schizophrenia and learning impairment. She reported that she smoked a pack of cigarettes per day for a couple of years but quit in her early 20s. She denies any significant alcohol use. She uses marijuana to treat her back pain. Code status: Full code Surrogate decision maker: Mother Smoking packs per day: 0.5 Smoking cigarettes per day: 10.0 Years smoked: 6 Smoking pack-years: 3.00 Smoking status: Former smoker Tobacco type: cigarettes Smokeless tobacco user: other Second hand tobacco smoke exposure: No Smoking end date: 02/18/06 Alcohol intake: never Substance use: current Substance use type: marijuana Other substance usage details: USES FOR BACK PAIN Last use: [id number] Do You Feel Safe in your Home?: Yes Lack of Transportation: No Lack of Food: Never True Current Housing: I Have Housing Concerned About Future Housing: No Difficulty Paying Gas/Electric Bills: No Difficulty Paying for Meds: No Currently Unemployed: No Education: Don't Know Difficulty w/ Childcare or Family Care: No Living arrangements: with family Occupation/Education: other Additional occupation/education comments: Disabled Gender identity (if verbalized by the patient): Female Spiritual care concerns: No Comments At the time of my signature, I reviewed and agree with the nursing past medical, surgical, social, and family history. There is no relevant family history pertinent to the patient complaint. Exam Narrative: GENERAL: This is a well-nourished, well-developed adult, in no apparent distress. They are non ill-appearing, nontoxic appearing. Patient is a obese. Physical exam limited due to large body habitus. HEAD: normocephalic, atraumatic. EYES: Sclera clear/white. Conjunctiva normal. Vision is grossly intact. Extraocular movements intact EARS: External ears normal. Hearing grossly intact. NOSE: External nose normal THROAT: Mucous membranes moist NECK: Neck supple, non-tender without lymphadenopathy, masses or thyromegaly. CARDIOVASCULAR: Regular rate and rhythm without murmurs, gallops, or rubs. RESPIRATORY: Clear to auscultation. Breath sounds equal bilaterally. No wheezes, rales, or rhonchi. GASTROINTESTINAL: Abdomen large, soft, epigastric tenderness to palpation, nondistended. Bowel sounds are active. No hepato-splenomegaly, or palpable masses. No guarding or rigidity. No rebound tenderness. Negative obturator sign SKIN: warm, Dry, intact with no suspicious lesions or rash, good texture and turgor. NEURO: awake, alert, and oriented to person, place and time. There were no obvious focal neurologic abnormalities. EXTREMITIES: No joint tenderness, effusion, or edema noted. BACK: Nontender without deformity. No CVA tenderness. Course Course Emergency Course: Portions of this record may have been created with voice recognition software Level of Care: Express Care Visit Vital Signs Vital signs: Vital Signs Temperature 97.4 F L 07/06/24 09:51 Pulse Rate 85 07/06/24 09:51 Respiratory Rate 16 07/06/24 09:51 Blood Pressure 127/82 07/06/24 09:51 Pulse Oximetry 100 07/06/24 09:51 Oxygen Delivery Room Air 07/06/24 09:51 Temperature 97.4 F L 07/06/24 09:51 Pulse Rate 85 07/06/24 09:51 Respiratory Rate 16 07/06/24 09:51 Blood Pressure 127/82 07/06/24 09:51 Pulse Oximetry 100 07/06/24 09:51 Oxygen Delivery Room Air 07/06/24 09:51 Reviewed MDM - Abdominal Pain MDM Narrative Medical decision making narrative: X-ray KUB showed constipation and no other acute findings. Likely patient has a gastritis. EKG without any ischemic findings. Patient is having no chest pain, shortness of breath, or any ischemic symptoms. Offered patient ER transfer for further evaluation of her symptoms and she declined. Patient has a follow-up with her doctor next month. Will prescribe her pantoprazole. Abdominal exam without peritonitis findings. Discussed physical exam findings. Advised supportive measures and signs/symptoms to go to the ER. Pt is appropriate for outpt treatment and f/u. Differential Diagnosis Differential diagnosis: Likely other (Gastritis, acid reflux, stomach ulcers) Imaging Data Radiologist's impression: ITS Impressions Abdomen X-Ray 07/06/24 11:01 IMPRESSION: NO ACUTE ABDOMINAL FINDINGS. Constipation. ITS Impressions Abdomen X-Ray 07/06/24 11:01 IMPRESSION: NO ACUTE ABDOMINAL FINDINGS. Constipation. ECG Data EKG #1: Attestation: I personally reviewed and interpreted this ECG as follows: ECG completion date: 07/06/24 ECG completion time: 11:24 Prior ECG tracings: available for review Interpretation: EKG unchanged compared to previous normal rate, sinus rhythm, no ectopy, no ST changes, normal QT and no acute changes Critical Care Time Critical Care Time Critical Care Time: No Discharge Plan Discharge Clinical Impression: Epigastric abdominal pain Patient Disposition: Home Condition: Stable Instructions: Gastritis (ED) Additional Instructions: Your x-ray today of her abdomen did show that you stool present your bowels. Otherwise your x-ray is normal. Your EKG is normal today. It is likely that you have a gastritis. Please take pantoprazole as directed. Take Zofran as needed for nausea or vomiting. Avoid NSAID or alcohol use. Avoid food triggers such as red sauce, dark chocolate, mints, spicy or greasy foods. Follow-up with primary care 3-5 days. May need to follow-up with the GI specialist if symptoms persist. If your symptoms worsened, he developed fevers, uncontrolled nausea and vomiting, blood in her stool or vomit, or any other concerns please go to the ER immediately. Patient Language: Latvian Prescriptions: New pantoprazole 40 mg tablet,delayed release (DR/EC) 40 mg PO QAM 28 Days Qty: 28 0RF ondansetron 4 mg tablet,disintegrating 4 mg PO Q8H PRN (Reason: nausea and vomiting) Qty: 12 0RF No Action (DME) subcutaneous insulin pump Misc See Rx Instructions .Route Rx Instructions: As directed lamotrigine 100 mg tablet 100 mg PO DAILY olanzapine 15 mg tablet 20 mg PO QHS fluoxetine 40 mg capsule 40 mg PO DAILY (DME) Omnipod 5 G6 Intro Kit (Gen 5) Cartridge See Rx Instructions .Route Qty: 1 0RF Rx Instructions: As directed bupropion HCl 150 mg tablet extended release 24 hr 150 mg PO QAM insulin lispro 100 unit/mL solution 1 sliding scale dose subcut DAILY MDD 70 Qty: 70 3RF Rx Instructions: for insulin pump Gvoke HypoPen 2-Pack 1 mg/0.2 mL auto-injector See Rx Instructions .ROUTE .COMPLEX Qty: 0.8 4RF Dose Instruction: INJECT 1MG SUBCUTANEOUSLY ONCE A SINGLE DOSE MAY REPEAT ONCE AFTER 15 MINUTES IF NO RESPONSE Rx Instructions: INJECT 1MG SUBCUTANEOUSLY ONCE A SINGLE DOSE MAY REPEAT ONCE AFTER 15 MINUTES IF NO RESPONSE (DME) Omnipod 5 G6 Pods (Gen 5) Cartridge See Rx Instructions .ROUTE .COMPLEX Qty: 45 3RF Dose Instruction: CHANGE EVERY 48 HOURS Rx Instructions: CHANGE EVERY 48 HOURS atorvastatin 20 mg tablet See Rx Instructions .ROUTE .COMPLEX Qty: 90 1RF Dose Instruction: 20 MG ORALLY DAILY Rx Instructions: 20 MG ORALLY DAILY (DME) Dexcom G6 Transmitter Device See Rx Instructions .ROUTE .COMPLEX Qty: 1 1RF Dose Instruction: CHANGE EVERY 90 DAYS Rx Instructions: CHANGE EVERY 90 DAYS Trulicity 1.5 mg/0.5 mL pen injector See Rx Instructions .ROUTE .COMPLEX Qty: 6 3RF Dose Instruction: INJECT 1.5 MG SUBCUTANEOUSLY WEEKLY Rx Instructions: INJECT 1.5 MG SUBCUTANEOUSLY WEEKLY clonidine HCl 0.1 mg tablet 0.1 mg PO DAILY acetaminophen [Tylenol] 325 mg tablet 325 mg PO ONCE PRN (Reason: fever or pain) Qty: 30 0RF propranolol 20 mg tablet 20 mg PO Q12H cholecalciferol (vitamin D3) 1,250 mcg (50,000 unit) capsule 1,250 mcg PO WEEKLY Qty: 12 0RF lisinopril 5 mg tablet See Rx Instructions .ROUTE .COMPLEX Qty: 180 0RF Dose Instruction: TAKE TWO TABLETS BY MOUTH DAILY Rx Instructions: TAKE TWO TABLETS BY MOUTH DAILY (DME) Dexcom G6 Sensor Device See Rx Instructions .ROUTE .COMPLEX Qty: 9 4RF Dose Instruction: CHANGE EVERY 10 DAYS Rx Instructions: CHANGE EVERY 10 DAYS Follow-up/Referrals: Bryan Kang MD [Physician] - Logan Ochoa DO [Primary Care Provider] - Time of Disposition: 11:22
--- NOTE | 2024-07-06 11:18 | ECG_ITS ---
Test Date: 2024-07-06 11:24:51 Measurements Intervals [place] Rate: 75 P: 20 AL: 137 QRS: 9 QRSD: 82 T: 7 QT: 389 QTc: 435 Interpretive Statements SINUS RHYTHM No previous ECG available for comparison Electronically Signed On 07-06-2024 11:26:59 CDT by Igor Still M.D.
== END 2024-07-06 11:40 | disposition home or self-care (01) ==
PROVIDERS: PCP Internal Medicine
DX: R10.13 Epigastric pain (principal); Z87.891 Personal history of nicotine dependence; E13.8 Other specified diabetes mellitus with unspecified complications; Z79.4 Long term (current) use of insulin; Z79.85 Long-term (current) use of injectable non-insulin antidiabetic drugs; I10 Essential (primary) hypertension; Z96.41 Presence of insulin pump (external) (internal); E66.01 Morbid (severe) obesity due to excess calories; F41.9 Anxiety disorder, unspecified; F32.A Depression, unspecified; Z68.39 Body mass index [BMI] 39.0-39.9, adult
CPT/HCPCS: 74018; 93005; 99213; G0463

== ENCOUNTER 2024-08-11 10:56 | Outpatient (CLI) | payer OTHER, SELFPAY ==
[2024-08-11 13:07] LABS: Basophils Percent Auto 0.3 % (0.2-1.2); Eosinophils Percent Auto 0.3 % (0-4.4); Hematocrit 39.1 % (37.0-47.0); Hemoglobin 12.5 g/dL (12.0-15.0); Immature Granulocyte Absolute 0.02 K/mm3 (0.00-0.031); Immature Granulocyte Percent A 0.2 % (0-0.5); Lymphocytes Absolute Auto 1.73 K/mm3 (0.9-3.2); Mean Platelet Volume 11.1 fl (7.4-10.4); Monocytes Absolute Auto 0.6 K/mm3 (0.1-0.6); Monocytes Percent Auto 6.9 % (2.6-8.5); Neutrophils Absolute Auto 6.7 K/mm3 (1.3-6.7); Neutrophils Percent Auto 73.3 % (45.5-73.1); Platelet Count Result 379 k/mm3 (150-375); Red Blood Count 4.16 M/mm3 (4.2-5.4); Red Cell Distribution Width 11.9 % (11.5-14.5); White Blood Count 9.1 K/mm3 (4.5-10.0)
[2024-08-11 13:30] LABS: Alanine Aminotransferase 21 U/L (6-35); Albumin Level 4.1 g/dL (3.5-5.1); Alkaline Phosphatase 64 U/L (38-126); Anion Gap 11 mmol/L (4-12); Aspartate Amino Transferase 38 U/L (14-36); Bilirubin,Total 0.6 mg/dL (0.2-1.3); Blood Urea Nitrogen 7 mg/dL (7-17); Calcium 9.3 mg/dL (8.4-10.2); Carbon Dioxide 25 mmol/L (22-30); Chloride 103 mmol/L (98-107); Estimated Glomerular Filt Rate > 60; Glucose 119 mg/dL (65-110); Potassium 4.4 mmol/L (3.4-5.0); Sodium 139 mmol/L (137-145); Total Protein 7.8 g/dL (6.3-8.2)
[2024-08-11 14:07] LABS: Thyroid Stimulating Hormone 0.634 uIU/mL (0.465-4.680)
== END 2024-08-11 10:57 | disposition home or self-care (01) ==
LOC: ANHGOSHLAB 10:57
PROVIDERS: PCP Internal Medicine; Visit Provider Clinical Nurse Specialist
DX: R10.32 Left lower quadrant pain (principal); R79.89 Other specified abnormal findings of blood chemistry
CPT/HCPCS: 36415; 80053; 84443; 85025

== ENCOUNTER 2024-08-11 11:37 | Outpatient (CLI) | payer OTHER, SELFPAY ==
--- NOTE | ~2024-08-11 | CT_ITS ---
CT abdomen pelvis w con Ordering provider: BAKARI Danielle-Anthony History: 39 years Female with . R10.32 - Left lower quadrant pain . Comparison: September 11, 2022 Technique: CT abdomen and pelvis with IV and without oral contrast. Automated exposure control and it erative reconstruction technique were employed. The dose-length product was 805.03 mGy-cm. 100 mL Omn ipaque 350 was given IV. Findings: VISUALIZED LOWER CHEST: 4 mm nodule is seen in the middle lobe area. 6 months follow-up CT is advised . UPPER ABDOMINAL ORGANS: Liver: Normal. Gallbladder: Status post cholecystectomy. Spleen: Normal. Stomach/duodenum: Normal. Pancreas: Normal. Adrenals: Normal. Kidneys: Tiny cysts in the left kidney. PELVIC ORGANS: The bladder is underfilled. Uterus: Normal. Hyperdense area seen in the right ovary suggestive of a ruptured follicle. BOWEL AND MESENTERY: Colon: No evidence of diverticulitis.. Normal appendix. Small Bowel: Normal. No obstruction. Peritoneum/mesentery: No free air. Minimal free fluid in the pelvis. No mesenteric lymphadenopathy. RETROPERITONEUM: Normal aorta. No retroperitoneal lymphadenopathy. MUSCULOSKELETAL: Superficial soft tissues: The superficial soft tissues are normal. Bones: Mild degenerative changes of the spine. Postoperative changes in the lower lumbar area. IMPRESSION: 1. No evidence of appendicitis, diverticulitis or intestinal obstruction. 2. Minimal free fluid in the pelvis with possible ruptured follicle in the right ovary. Clinical cor relation and follow-up advised. 3. 4 mm nodule in the right lower lobe. 6 months follow-up chest CT is advised. Reviewed, dictated and finalized at location A. IMPRESSION: 1. No evidence of appendicitis, diverticulitis or intestinal obstruction. 2. Minimal free fluid in the pelvis with possible ruptured follicle in the rig ht ovary. Clinical correlation and follow-up advised. 3. 4 mm nodule in the right lower lobe. 6 months follow-up chest CT is advised .
[2024-08-11 12:37] LABS: Estimated Glomerular Filt Rate > 60
== END 2024-08-11 11:38 | disposition home or self-care (01) ==
PROVIDERS: PCP Internal Medicine; Visit Provider Clinical Nurse Specialist
DX: R10.32 Left lower quadrant pain (principal); R91.1 Solitary pulmonary nodule
CPT/HCPCS: 36415; 74177; 80053; 84443; 85025; Q9967

== ENCOUNTER 2025-01-04 12:08 | Outpatient (CLI) | payer OTHER, SELFPAY ==
--- NOTE | ~2025-01-04 | XR_ITS ---
Lumbar spine series Indication: Radiculopathy Comparison: CT abdomen pelvis 08/11/2024 Technique: 3 views lumbar spine Findings: 5 nonrib-bearing lumbar-type vertebral bodies. L3-5 spinous process resection. No acute fracture. No listhesis. Vertebral bodies normal height. Disc spaces maintained. Mild degenerative changes. SI joints congruent. Sacrum intact. IMPRESSION: 1. No acute findings. Reviewed, dictated and finalized at location R. [employer] IMPRESSION: 1. No acute findings.
== END 2025-01-04 12:09 | disposition home or self-care (01) ==
PROVIDERS: PCP Internal Medicine; Visit Provider Clinical Nurse Specialist
DX: M54.16 Radiculopathy, lumbar region (principal)
CPT/HCPCS: 72100